=== PATIENT | female | born 1965 | race Caucasian/White ===

== ENCOUNTER 2019-01-01 16:23 | Emergency (ER) | payer BC ==
[~2019-01-01] VITALS: Ht 162.6 cm; Wt 117.9 kg
[~2019-01-01 16:23] MED LIST: AMITRIPTYLINE H10 MG PO; ATORVASTATIN CA20 MG PO; BACTRIM DS TAB1 EACH PO; CLINDAMYCIN HC300 MG PO; CLOBETASOL PROP15 G1 TOP; FARXIGA10 MG PO; HUMALOG100 UNIT/2 SUB-Q; INTRINSI B12-F1 EACH PO; KEFLEX500 MG PO; LEVOTHYROXINE200 MCG PO; LEVOTHYROXINE75 MCG PO; LISINOPRIL20 MG PO; METFORMIN HCL1000 MG PO; METOPROLOL SUCC50 MG PO; OMEPRAZOLE20 M1 PO; OXYCODONE HCL5 MG PO; TOUJEO SOL300 UNIT/1 SQ; TRAMADOL HCL50 MG PO; TRIAMCINOLONE A15 G1 TOP; ULTRAM50 MG PO; VITAMIN B-122000 MC1 PO; VITAMIN D250000 UNIT PO
--- OUTSIDE RECORDS SUMMARY | 2019-01-01 16:26 | XMS ---
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 Bharat has no Care Guidelines for this patient. Hemant VISIT COUNT (12 MO.) 1 YOLANDA Parker TOTAL 1 NOTE: Visits indicate total known visits. ED/C VISIT TRACKING (12 MO.) 01/01/2019 16:24 YOLANDA [facility] [place] TYPE: Emergency COMPLAINT: - CHEST PAIN INPATIENT VISIT TRACKING (12 MO.) No inpatient visits to display in this time frame [email or web address]
--- NOTE | 2019-01-02 17:35 | EKG ---
[facility] [address] [place], [place] [address] Signed Normal sinus rhythm Normal ECG When compared with ECG of 01-FEB-2018 15:57, No significant change was found Confirmed by MIRTA PINEDA DO ([id number]) on 01/02/2019 5:35:31 PM Electronically Signed By: MIRTA PINEDA DO 01/02/19 1735 PATIENT NAME: CATHRYN CHANCEJP SPANN Electrocardiogram DATE OF : 69 PHYSICIAN: MIRTA PINEDA DO REPORT #: [id number] REPORT IS CONFIDENTIAL AND NOT TO BE RELEASED WITHOUT AUTHORIZATION
== END 2019-01-01 19:33 | disposition home or self-care (01) ==
LOC: ED 16:23
DX: R07.2 Precordial pain (principal); I10 Essential (primary) hypertension; E11.9 Type 2 diabetes mellitus without complications; E66.9 Obesity, unspecified; Z87.891 Personal history of nicotine dependence; Z88.0 Allergy status to penicillin; Z88.8 Allergy status to other drugs, medicaments and biological substances; Z79.4 Long term (current) use of insulin; Z79.899 Other long term (current) drug therapy
CPT/HCPCS: 36415; 71045; 80053; 84484; 85025; 85379; 93005; 93010; 99285-25

== ENCOUNTER 2019-10-17 09:20 | Emergency (ER) | payer BC ==
[~2019-10-17] VITALS: Ht 162.6 cm; Wt 117.9 kg
--- OUTSIDE RECORDS SUMMARY | ~2019-10-17 | XMS | Encounter Summary ---
Demographics + + + | Address | [address] | | | [place] [address] | + + + | Home Phone | | + + + | Preferred Language | Unknown | + + + | Marital Status | | + + + | Mandaen Affiliation | Unknown | + + + | Race | Unknown | + + + | Ethnic Group | Unknown | + + + Author + + + | Author | [facility] | | | and [place] | + + + | Organization | [facility] | | | and [place] | + + + | Address | Unknown | + + + | Phone | Unavailable | + + + Support + + + + + | Name | Relationship | Address | Phone | + + + + + | Deonte Simms V | ECON | [address] | | | | | [place] | | | | | [address] | | + + + + + Care Team Providers + +------+ + | Care Polysom Tech Name | Role | Phone | + +------+ + | Nikos Crane | PCP | | | MD | | | + +------+ + Reason for Visit Auth/Cert +--------+--------+ + + + + | Status | Reason | Specialty | Diagnoses / | Referred By | Referred To | | | | | Procedures | Contact | Contact | +--------+--------+ + + + + | | | | Diagnoses | | Clara, | | | | | Abnormal | | DO Ama | | | | | stress test | | [address] | | | | | Procedures | | [address] | | | | | [place] [address] | | [place] | | | | | [place] & | | [address] Phone: | | | | | ARTS W/N[place]X | | [phone] | | | | | & ANGIO IMG | | Fax: | | | | | S&I CV LHC | | [phone] | | | | | CV COR | | | | | | | ANGIO CV LV | | | +--------+--------+ + + + + Encounter Details +--------+ + + + + | Date | Type | Department | Care Team | Description | +--------+ + + + + | 08/05/ | Hospital | [facility] | Ama Elizabeth DO | Abnormal stress | | 2019 - | Encounter | [facility] | [address] | test; Abnormal | | | | CARE [address]LO[phone] | [place], [place] | stress test | | 08/06/ | | [address] | [address] | | | 2018 | | [place], [place] | | | | | | [address] | | | | | | [phone] | | | +--------+ + + + + Social History + + + +--------+ + | Tobacco Use | Types | Packs/Day | Years | Date | | | | | Used | | + + + +--------+ + | Former Smoker | Cigarettes | 1 | 20 | Quit: 11/21/2011 | + + + +--------+ + + +---+---+---+ | Smokeless Tobacco: | | | | | Never Used | | | | + +---+---+---+ + + +---------+ + | Alcohol Use | Drinks/Week | oz/Week | Comments | + + +---------+ + | No | | | Alcoholic | | | | | Drinks/day: RARELY | + + +---------+ + + + + | Sex Assigned at | Date Recorded | | | | + + + | Not on file | | + + + + + + + | Job Start Date | Occupation | Industry | + + + + | Not on file | Not on file | Not on file | + + + + + + + + | Travel History | Travel Start | Travel End | + + + + + + | No recent travel history available. | + + documented as of this encounter Last Filed Vital Signs + + + + + | Vital Sign | Reading | Time Taken | Comments | + + + + + | Blood Pressure | 156/81 | 08/06/2019 8:00 AM | | | | | PDT | | + + + + + | Pulse | 92 | 08/06/2019 8:00 AM | | | | | PDT | | + + + + + | Temperature | 36.8 C (98.2 F) | 08/06/2019 8:00 AM | | | | | PDT | | + + + + + | Respiratory Rate | 16 | 08/06/2019 8:00 AM | | | | | PDT | | + + + + + | Oxygen Saturation | 96% | 08/06/2019 8:00 AM | | | | | PDT | | + + + + + | Inhaled Oxygen | - | - | | | Concentration | | | | + + + + + | Weight | 129.8 kg (286 lb 2.5 | 08/05/2019 7:50 AM | | | | oz) | PDT | | + + + + + | Height | 162.6 cm (5' 4") | 08/05/2019 7:50 AM | | | | | PDT | | + + + + + | Body Mass Index | 49.12 | 08/05/2019 7:50 AM | | | | | PDT | | + + + + + documented in this encounter Discharge Summaries Fermín Tyler MD - 08/06/2019 8:36 AM PDT [facility] Service: Cardiology Discharge Summary Date of Admission: 08/05/2019 Date of Discharge: 08/06/2019 Discharge Physician: Fermín Tyler MD PROCEDURES: Angioplasty for the RCA with 2 overlapping drug-eluting stents, synergy 3.0 x 38 mm and 3.5 x 38 mm. HOSPITAL COURSE: Deshawn Simms is 54 y.o. lady who was evaluated by Dr. Elizabeth for recurrent epis odes of angina. She had abnormal nuclear stress test. Heart catheterization showed two-vessel disease including LAD and the RCA. Angioplasty was done for the RCA. Patient was observed overnight without complications. She was discharged home in stable condition. DISCHARGE EXAM Vital Signs: BP 156/81 | Pulse 92 | Temp 36.8 C (98.2 F) (Oral) | Resp 16 | Ht 1.626 m (5' 4") | Wt 129.8 kg (286 lb 2.5 oz) | LMP 11/30/2012 | SpO2 96% | ? No | BMI 49.1 2 kg/m HEENT: No xanthelasmas. Extraocular movements were intact. No jaundice. NECK: no JVD, lymphadenopathy. Trachea is at midline. Thyroid is not palpable. CARDIAC: There is normal S1 and S2. Systolic murmur, 6. CHEST: Normal bilateral symmetrical chest excursion. Good bilateral air entry with no crack les or wheezing. No evidence of dullness. ABDOMEN: Soft and lax. No tenderness. No palpable organs. Active bowel sounds. EXTREMITIES: No lower extremities edema. NEURO: Alert and oriented times three with no focal deficit. Cranial nerves are grossly no rmal. SKIN: No bruises or rash. DATA: Recent Labs Lab 08/06/19 0530 NA 139 K 4.3 CO2 28 BUN 24 CALCIUM 9.6 No results for input(s): CKMB in the last 168 hours. Invalid input(s): CKTOTAL, CKMBINDEX, TROPONINI Recent Labs Lab 08/06/19 0530 WBC 10.37 HGB 11.6 HCT 35.8 MCV 89.3 PLT 440* PLAN: Aspirin 81 mg indefinitely Prasugrel 10 mg for 1 year Staged PCI for the LAD Postpone cardiac rehab till after LAD PCI Aggressive risk factors modification DISCHARGE MEDICATIONS: Discharge Medications New Medications Details prasugrel 10 mg Tabs Take 1 tablet by mouth Daily. aka: EFFIENT Changed Medications Details levothyroxine 100 mcg tablet Take 100 mcg by mouth every morning before breakfast. What changed: when to take this aka: SYNTHROID Unchanged Medications Details APIDRA SOLOSTAR 100 units/mL injection pen Generic drug: insulin glulisine Inject into the skin 3 (three) times daily before meals. aspirin 81 mg chewable tablet Take 81 mg by mouth daily with breakfast. ergocalciferol 50,000 units capsule Take 50,000 Units by mouth once a week. aka: VITAMIN D-2 FARXIGA 10 mg tablet Generic drug: dapagliflozin Take 10 mg by mouth every morning. FIBER CHOICE FRUITY BITES PO Take by mouth. metFORMIN 1000 MG tablet Take 1,000 mg by mouth 2 (two) times daily with meals. aka: GLUCOPHAGE metoprolol succinate 100 mg ER tablet Take 100 mg by mouth daily. aka: TOPROL-XL nitroglycerin 0.[address] 1 tablet under the tongue every 5 minutes as needed for Chest pain. aka: NITROSTAT TRESIBA FLEXTOUCH SC Inject into the skin. UNCODED MEDICATION E0601 CPAP RES MED S9- MIN 5 cm MAX 20cm; A7033 Nasal Pillows; A7032 Nasal Mask; A7030 Full Face Mask; E0562 Heated Humidifier; A7037 Heated Tubing; A7034 Cushions; A7036 Chinstrap; A7039 / A7038 Filters; AHI 44.1; Date of Most Recent Polysomnogram: 11/28/2013; Uncoded Medication Convert CPAP to purchase for NARESH (327.23) VITAMIN D PO Take 50,000 Units by mouth Three times a week. Discontinued Medications ibuprofen 200 mg tablet aka: EMMY HOBSON UNREVIEWED - COMPLETE MED REC AND REFRESH THIS SMARTLINK BEFORE SIGNING Details cyanocobalamin 2000 MCG Tabs Take 2,500 mcg by mouth daily. aka: VITAMIN B-12 Disposition: Home Condition: Stable Code Status: Full Code Discharge took 30 minutes, to include final examination, discussion of admission, and prepa ration of prescriptions, instructions for on-going care, follow-up and documentation of disc harge summary. Fermín Tyler MD 08/06/2019 documented in this enco unter Discharge Instructions Instructions Vinita Lebron RN - 08/06/2019Formatting of this note might be different f rom the original. Discharge: For 24 hours: Avoid excessive wrist movement. Avoid forceful movements (ie. Supporting weight when getting up from a bed or chair). Do not drive a car. For 48 hours: Do not to lift more than 1 pounds for 48 hours. Do not operate lawnmower, motorcycle, chainsaw or all-terrain vehicle. Avoid flexing at the wrist, such as hammering, playing tennis, or swinging objects. For 7 days: Do not submerge your hands in water (dishwater, bath tubs or other water sources). If bleeding or swelling should occur, apply manual pressure directly over the access site a nd report to the nearest hospital for evaluation. If bleeding persists for more than 10 darrius amanda, or there is a large amount of bleeding or spurting Call [address] immediately[address] yourself to the Emergency Department. Seek immediate medical attention if they experience loss of sensation, redness, swelling or discharge at the procedure site. For minor discomfort, the take acetaminophen as prescribed, elevate the affected arm and ap ply an ice pack for comfort and swelling. .Notify your physician if you experience any of the following: -Chest pain unusual for you. -Swelling, redness, inflammation or extreme discomfort from the puncture site. -Shortness of breath. -Persistent nausea/vomiting. -Coldness, discoloration, ongoing numbness. If you are unable to contact your physician or if your symptoms are severe, call 911 immedi ately. Other concerns: The site may be slightly bruised and sore following your procedure, there may be mild tingl ing in your hand and site for up to 3 days. Appointment: Please call today to make an appointment for your follow-up visit to your physician as he eufemia sheppard. Coronary Stents A stent is a small metal coil or mesh tube that is placed in a narrowed artery to hold it o pen, whichhelps improve blood flow to your heart. The stent also helps keep the artery fro m re-narrowing (restenosis). Some stents slowly release medicine over a period of time. This reduces the amount of scar tissue that forms inside the artery, helping toprevent resteno sis. A cadence specialists called an tube repairer does coronary angioplasty and stenting. He or she has specialized training in using the equipment and in doing the proce dure as safely as possible. During the procedure A member of your healthcare team will numb the skin at the insertion site (usually the g roin, but sometimes the wrist) with a local anesthetic. He or she will make a needle punctur e to insert the catheter. Your doctor will insert a guide wire through the catheter (a thin, flexible tube) and mo ve it to the narrow spot in your heart's artery. Your doctor tracks its movement on an angio gram, a special kind of X-ray. Your doctor will then insert a balloon-tipped catheter through the guide catheter and th read it over the guide wire. He or she will position it at the narrow part of the artery. Your doctor will deliver a stent mounted on a balloon-tipped catheter to the blockage in your artery. He or she will inflate the balloon to expand the stent. The expanded stent further compresses the plaque against the arterial wall, increasing t he blood flow to the heart muscle. After the procedure Your doctor will give you medicine to prevent blood clots from forming on the new stent. You will continue to take this medicine until the stent and artery have healed. Your health care team will tell you how long you should take this. Your doctor will give you a prescript ion before you go home. Your healthcare team will tell you how long to lie down and keep the insertion site stil l. The amount of time may depend on whether a closure device such as a stitch or collagen pl ug was used to close the opening made in your artery. The time you must be still may be shor ter if one of these devices was used. The amount of time will also depend on if there is any bleeding at the artery site. If the insertion site was in your groin, you may need to lie down with your leg still fo r several hours. A nurse will check your blood pressure and the insertion site. You may be asked to drink fluid to help flush the contrast liquid out of your system. You may stay for several hours overnight in the hospital. Have someone drive you home fr om the hospital. It s normal to find a small bruise or lump at the insertion site. This should disappea r within a few weeks. When to call your healthcare provider Call your healthcare provider right away if you have any of the following: Angina (a feeling of pain, pressure, aching, tingling, or burning in the chest, back, ne ck, throat, jaw, arms, or shoulders) Increasing pain, swelling, redness, bleeding, or drainage at the insertion site Severe pain, coldness, or a bluish color in the leg or arm that held the catheter Shortness of breath Difficulty urinating or blood in your urine Fever of100.4F (38C) or higher, or as directed by your healthcare provider Date Last Reviewed: 07/30/201619997171-4327 [employer]. [address] [place] [address], [place] [address]. All righ ts reserved. This information is not intended as a substitute for professional medical care. Always follow your healthcare professional's instructions. Eating Heart-Healthy Foods Eating has a big impact on your heart health. In fact, eating healthier can improve several of your heart risks at once. For instance, it helps you manage weight, cholesterol, and blo od pressure. Here are ideas to help you make heart-healthy changes without giving up allth e foods and flavors you love. Getting started Talk with your healthcare provider about eating plans, such as the DASH or Mediterranean diet. You may also be referred to a dietitian. Change a few things at a time. Give yourself time to get used to a few eating changes be fore adding more. Work to create a tasty, healthy eating plan that you can stick to for the rest of your l sultana. Goals for healthy eating Below are some tips to improve your eating habits: Limit saturated fats and trans fats. Saturated fats raise your levels of cholesterol, so keep these fats to a minimum. They are found in foods such as fatty meats, whole milk, theodore se, and palm and coconut oils. Avoid trans fats because they lower good cholesterol as well as raise bad cholesterol. Trans fats are most often found in processed foods. Reduce sodium (salt) intake. Eating too much salt may increase your blood pressure. Limi t your sodium intake to 2,300 milligrams (mg) per day(the amount in 1 teaspoon of salt), o r less if your healthcare provider recommends it. Dining out less often and eating fewer pro cessed foods are two great ways to decrease the amount of salt you consume. Managing calories. A calorie is a unit of energy. Your body lucas calories for fuel, but if you eat more calories than your body lucas, the extras are stored as fat. Your healthcar e provider can help you create a diet plan to manage your calories. This will likely include eating healthier foods as well as exercising regularly. To help you track your progress, ke ep a diary to record what you eat and how often you exercise. Choose the right foods Aim to make these foods dio of your diet. If you have diabetes, you may have different recommendations than what is listed here: Fruits and vegetables provide plenty of nutrients without a lot of calories. At meals, f ill half your plate with these foods. Split the other half of your plate between whole grain s and lean protein. Whole grains are high in fiber and rich in vitamins and nutrients. Good choices include whole-wheat bread, pasta, and brown rice. Lean proteins give you nutrition with less fat. Good choices include fish, skinless chic bro, and beans. Low-fat or nonfat dairy provides nutrients without a lot of fat. Try low-fat or nonfat m ilk, cheese, or yogurt. Healthy fats can be good for you in small amounts. These are unsaturated fats, such as o live oil, nuts, and fish. Try to have at least 2 servings per week of fatty fish, such as sa lmon, sardines, mackerel, rainbow trout, and albacore tuna. These contain omega-3 fatty acid s, which are good for your heart. Flaxseed is another source of a heart-healthy fat. More on heart-healthy eating Read food labels Healthy eating starts at the grocery store. Be sure to pay attention to food labels on pack aged foods. Look for products that are high in fiber and protein, and low in saturated fat, cholesterol, and sodium. Avoid products that contain trans fat. And pay close attention to s erving size. For instance, if you plan to eat two servings, double all the numbers on the la bel. Prepare food right A miller part of healthy cooking is cutting down on added fat and salt. Look on the internet f or lower-fat, lower-sodium recipes. Also, try these tips: Remove fat from meat and skin from poultry before cooking. Skim fat from the surface of soups and sauces. Broil, boil, bake, steam, grill, and microwave food without added fats. Choose ingredients that spice up your food without adding calories, fat, or sodium. Try these items: horseradish, hot sauce, lemon, mustard, nonfat salad dressings, and vinegar. Fo r salt-free herbs and spices, try basil, cilantro, cinnamon, pepper, and rupali. Date Last Reviewed: 07/30/201719997936-7561 [employer]. [address] [place] [id number]. All righ ts reserved. This information is not intended as a substitute for professional medical care. Always follow your healthcare professional's instructions. The [facility] Diet Expanded Second Edition documented in this encounter Medications at Time of Discharge + + + +---------+ + + | Medication | Sig | Dispensed | Refills | Start | End Date | | | | | | Date | | + + + +---------+ + + | cyanocobalamin | Take 2,500 mcg by | | 0 | 04/01/20 | | | (VITAMIN B-12) 2000 | mouth daily. | | | 19 | | | MCG TABS | | | | | | + + + +---------+ + + | dapagliflozin | Take 10 mg by mouth | | 0 | 04/01/20 | | | (FARXIGA) 10 mg | every morning. | | | 19 | | | tablet | | | | | | + + + +---------+ + + | ergocalciferol | Take 50,000 Units by | | 0 | 04/01/20 | | | (VITAMIN D-2) 50,000 | mouth once a week. | | | 19 | | | units capsule | | | | | | + + + +---------+ + + | Insulin Degludec | Inject into the | | 0 | 04/01/20 | | | (TRESIBA FLEXTOUCH | skin. | | | 19 | | | SC) | | | | | | + + + +---------+ + + | insulin glulisine | Inject into the | | 0 | 04/11/20 | | | (APIDRA SOLOSTAR) | skin 3 (three) times | | | 19 | | | 100 units/mL | daily before meals. | | | | | | injection pen | | | | | | + + + +---------+ + + | Inulin (FIBER | Take by mouth. | | 0 | 04/01/20 | | | CHOICE FRUITY BITES | | | | 19 | | | PO) | | | | | | + + + +---------+ + + | levothyroxine | Take 100 mcg by | | 0 | 04/01/20 | | | (SYNTHROID) 100 mcg | mouth every morning | | | 19 | | | tablet | before breakfast. | | | | | + + + +---------+ + + | metFORMIN | Take 1,000 mg by | | 0 | 04/01/20 | | | (GLUCOPHAGE) 1000 MG | mouth 2 (two) times | | | 19 | | | tablet | daily with meals. | | | | | + + + +---------+ + + | nitroglycerin | Place 1 tablet under | 25 | | 07/25/20 | | | (NITROSTAT) 0.4 mg | the tongue every 5 | tablet | | 19 | | | SL tablet | minutes as needed | | | | | | | for Chest pain. | | | | | + + + +---------+ + + | prasugrel | Take 1 tablet by | 90 | 3 | 08/06/20 | | | (EFFIENT) 10 mg TABS | mouth Daily. | tablet | | 19 | | + + + +---------+ + + | Uncoded Medication | Convert CPAP to | 1 | 0 | 02/05/20 | | | | purchase for NARESH | Device | | 14 | | | | (327.23) | | | | | + + + +---------+ + + | UNCODED MEDICATION | E0601 CPAP RES MED | 1 | 0 | 12/05/19 | | | | S9- MIN 5 cm MAX | Device | | 14 | | | | 20cm; A7033 Nasal | | | | | | | Pillows; A7032 Nasal | | | | | | | Mask; A7030 Full | | | | | | | Face Mask; E0562 | | | | | | | Heated Humidifier; | | | | | | | A7037 Heated Tubing; | | | | | | | A7034 Cushions; | | | | | | | A7036 Chinstrap; | | | | | | | A7039 / A7038 | | | | | | | Filters; AHI | | | | | | | 44.1;Date of Most | | | | | | | Recent | | | | | | | Polysomnogram: | | | | | | | 11/28/2013; | | | | | + + + +---------+ + + | aspirin 81 mg | Take 81 mg by mouth | | 0 | 04/11/20 | | | chewable tablet | daily with | | | 19 | 9 | | | breakfast. | | | | | + + + +---------+ + + | Cholecalciferol | Take 50,000 Units by | | 0 | | | | (VITAMIN D PO) | mouth Three times a | | | | 9 | | | week. | | | | | + + + +---------+ + + | metoprolol | Take 100 mg by mouth | | 0 | 04/01/20 | | | succinate | daily. | | | 19 | 9 | | (TOPROL-XL) 100 mg | | | | | | | ER tablet | | | | | | + + + +---------+ + + documented as of this encounter Progress Notes Annelise Rodriguez RN - 08/06/2019 9:26 AM PDTPatient requested prescription be sent to [facility] [place], [facility], and they advised they will send her Rx to her prefer d pharmacy. Annelise Samano RN - 08/06/2019 9:06 AM PDTDiscussed all prescription and discharge information wit h patient. TELE called to report inverted T-wave. Called and spoke w/ Dr. Elizabeth at this time regarding TELE, Dr Elizabeth says no action necessary at this time. Patient is pain-free, asymptomatic with stable vital signs. Tele notified of discharge. documented in this encounter Plan of Treatment +--------+---------+ + + + | Date | Type | Specialty | Care Team | Description | +--------+---------+ + + + | 11/06/ | Office | Vascular Surgery | Jacinto Tierney MD | | | 2019 | Visit | | [address] | | | | | | [place] [facility] | | | | | | [place] [address] | | | | | | [phone] | | | | | | | | +--------+---------+ + + + | 11/18/ | Office | Nephrology | Fermín Muse MD | | | 2019 | Visit | | [address] | | | | | | [address] [place] | | | | | | [address] | | | | | | | | +--------+---------+ + + + | 12/26/ | Office | Cardiology | Ashlyn Gallagher | | | 2019 | Visit | | [address] | | | | | | [address] | | | | | | [place] [address] | | | | | | [phone] | | | | | | | | +--------+---------+ + + + documented as of this encounter Procedures + +--------+ + + + | Procedure Name | Priori | Date/Time | Associated Diagnosis | Comments | | | ty | | | | + +--------+ + + + | POC GLUCOSE (NON | Routin | 08/06/2019 | | Results for this | | ORD) | e | 7:11 AM | | procedure are in the | | | | PDT | | results section. | + +--------+ + + + | CBC NO DIFFERENTIAL | Routin | 08/06/2019 | | Results for this | | | e | 5:30 AM | | procedure are in the | | | | PDT | | results section. | + +--------+ + + + | CK TOTAL | Routin | 08/06/2019 | | Results for this | | | e | 5:30 AM | | procedure are in the | | | | PDT | | results section. | + +--------+ + + + | BASIC METABOLIC | Routin | 08/06/2019 | | Results for this | | PANEL | e | 5:30 AM | | procedure are in the | | | | PDT | | results section. | + +--------+ + + + | POC GLUCOSE (NON | Routin | 08/05/2019 | | Results for this | | ORD) | e | 9:17 PM | | procedure are in the | | | | PDT | | results section. | + +--------+ + + + | CV STENT | Routin | 08/05/2019 | Abnormal stress | Results for this | | | e | 11:59 AM | test | procedure are in the | | | | PDT | | results section. | + +--------+ + + + | CV COR ANGIO | Routin | 08/05/2019 | Abnormal stress | Results for this | | | e | 11:59 AM | test | procedure are in the | | | | PDT | | results section. | + +--------+ + + + | ACTIVATED CLOTTING | Routin | 08/05/2019 | | Results for this | | TIME | e | 11:36 AM | | procedure are in the | | | | PDT | | results section. | + +--------+ + + + | ACTIVATED CLOTTING | Routin | 08/05/2019 | | Results for this | | TIME | e | 11:13 AM | | procedure are in the | | | | PDT | | results section. | + +--------+ + + + | PTT | STAT | 08/05/2019 | | Results for this | | | | 8:19 AM | | procedure are in the | | | | PDT | | results section. | + +--------+ + + + | PROTIME INR | STAT | 08/05/2019 | | Results for this | | | | 8:19 AM | | procedure are in the | | | | PDT | | results section. | + +--------+ + + + | CBC WITH | STAT | 08/05/2019 | | Results for this | | DIFFERENTIAL | | 8:19 AM | | procedure are in the | | | | PDT | | results section. | + +--------+ + + + | BASIC METABOLIC | STAT | 08/05/2019 | | Results for this | | PANEL | | 8:19 AM | | procedure are in the | | | | PDT | | results section. | + +--------+ + + + | POC GLUCOSE (NON | Routin | 08/05/2019 | | Results for this | | ORD) | e | 8:02 AM | | procedure are in the | | | | PDT | | results section. | + +--------+ + + + documented in this encounter Results POC Glucose (08/06/2019 7:11 AM PDT) + + + + + + | Component | Value | Ref Range | Performed | Pathologist | | | | | At | Signature | + + + + + + | Glucose, | 204 (H)Comment: Testing | 65 - 99 mg/dL | [facility] | | | POC | performed at [facility] | | LABORATORY | | | | [address];[place], [place] | | | | | | [address] | | | | + + + + + + + + | Specimen | + + | | + + + + + + + | Performing | Address | City/State/Zipcode | Phone Number | | Organization | | | | + + + + + | [facility] | [address] | [place] [address] | [phone] | + + + + + CBC no Differential (08/06/2019 5:30 AM PDT) + + + + + + | Component | Value | Ref Range | Performed | Pathologist | | | | | At | Signature | + + + + + + | WBC | 10.37 | 3.80 - 11.00 | [facility] | | | | | K/uL | LABORATORY | | + + + + + + | RBC | 4.01 | 3.70 - 5.10 | [facility] | | | | | M/uL | LABORATORY | | + + + + + + | Hemoglobin | 11.6 | 11.3 - 15.5 | [facility] | | | | | g/dL | LABORATORY | | + + + + + + | Hematocrit | 35.8 | 34.0 - 46.0 % | [facility] | | | | | | LABORATORY | | + + + + + + | MCV | 89.3 | 80.0 - 100.0 fl | [facility] | | | | | | LABORATORY | | + + + + + + | MCH | 28.9 | 27.0 - 34.0 pg | [facility] | | | | | | LABORATORY | | + + + + + + | MCHC | 32.3 | 32.0 - 35.5 | [facility] | | | | | g/dL | LABORATORY | | + + + + + + | RDW-SD | 48.6 | 37 - 53 fl | [facility] | | | | | | LABORATORY | | + + + + + + | Platelet | 440 (H) | 150 - 400 K/uL | [facility] | | | Count | | | LABORATORY | | + + + + + + | MPV | 8.2Comment: Testing | fl | [facility] | | | | performed at [facility], [address] | | LABORATORY | | | | [address], | | | | | | [place] [address] | | | | + + + + + + + + | Specimen | + + | Blood | + + + + + + + | Performing | Address | City/State/Zipcode | Phone Number | | Organization | | | | + + + + + | [facility] | [address] | [place] [address] | [phone] | + + + + + Basic Metabolic Panel (08/06/2019 5:30 AM PDT) + + + + + + | Component | Value | Ref Range | Performed | Pathologist | | | | | At | Signature | + + + + + + | Na | 139 | 135 - 145 | [facility] | | | | | mmol/L | LABORATORY | | + + + + + + | K | 4.3 | 3.5 - 4.9 | [facility] | | | | | mmol/L | LABORATORY | | + + + + + + | Cl | 106 | 99 - 109 mmol/L | [facility] | | | | | | LABORATORY | | + + + + + + | CO2 | 28 | 23 - 32 mmol/L | [facility] | | | | | | LABORATORY | | + + + + + + | Anion Gap | 9 | 5 - 20 mmol/L | [facility] | | | | | | LABORATORY | | + + + + + + | Glucose | 163 (H) | 65 - 99 mg/dL | [facility] | | | | | | LABORATORY | | + + + + + + | BUN | 24 | 8 - 25 mg/dL | [facility] | | | | | | LABORATORY | | + + + + + + | Creatinine | 1.1 (H) | 0.50 - 1.00 | [facility] | | | | | mg/dL | LABORATORY | | + + + + + + | BUN/Creatin | 22 | | [facility] | | | ine Ratio | | | LABORATORY | | + + + + + + | Calcium | 9.6 | 8.5 - 10.5 | [facility] | | | | | mg/dL | LABORATORY | | + + + + + + | Estimated | 52 (L)Comment: GFR <60: | >60 | [facility] | | | GFR | CHRONIC KIDNEY DISEASE, | mL/min/1.73m2 | LABORATORY | | | | IF FOUND OVER A 3 MONTH | | | | | | PERIOD.GFR <15: KIDNEY | | | | | | FAILURE.FOR | | | | | | AMERICANS, MULTIPLY THE | | | | | | CALCULATED GFR BY | | | | | | 1.210.This eGFR is | | | | | | calculated using the | | | | | | MDRD IDMS traceable | | | | | | equation.Testing | | | | | | performed at [facility], [address] | | | | | | [facility], | | | | | | [place] [address] | | | | + + + + + + + + | Specimen | + + | Blood | + + + + + + + | Performing | Address | City/State/Zipcode | Phone Number | | Organization | | | | + + + + + | [facility] | [address] | [place] [address] | [phone] | + + + + + CK Total (08/06/2019 5:30 AM PDT) + + + + + + | Component | Value | Ref Range | Performed | Pathologist | | | | | At | Signature | + + + + + + | CK TOTAL | 157Comment: Testing | 30 - 240 U/L | [facility] | | | | performed at [facility] | | LABORATORY | | | | [address];[place], [place] | | | | | | [address] | | | | + + + + + + + + | Specimen | + + | Blood | + + + + + + + | Performing | Address | City/State/Zipcode | Phone Number | | Organization | | | | + + + + + | [facility] | [address] | [place] [address] | [phone] | + + + + + POC Glucose (08/05/2019 9:17 PM PDT) + + + + + + | Component | Value | Ref Range | Performed | Pathologist | | | | | At | Signature | + + + + + + | Glucose, | 158 (H)Comment: Testing | 65 - 99 mg/dL | [facility] | | | POC | performed at [facility];[address] | | LABORATORY | | | | [address];[place] | | | | | | [address] | | | | + + + + + + + + | Specimen | + + | | + + + + + + + | Performing | Address | City/State/Zipcode | Phone Number | | Organization | | | | + + + + + | [facility] | [address] [facility] | [place] [address] | [phone] | + + + + + CV CARDIAC PROCEDURE (08/05/2019 11:59 AM PDT) + + | Specimen | + + | | + + + + + | Narrative | Performed At | + + + | | | | ConclusionSuccessful angioplasty for the RCA with 2 overlapping | | | drug-eluting stents, synergy 3.0 x 38 mm and synergy 3.5 x 38 mm. | | | Recommendations1. Aspirin 81 mg indefinitely2. Prasugrel 10 mg for 1 | | | year3. Postpone cardiac rehab referral until after evaluation of the | | | LAD.4. Aggressive risk factors modifications. For additional detail | | | as to the procedures performed and the equipment that was utilized, | | | please refer to the Procedure Log. | | |4. Aggressive risk factors modifications. | | | | | | | | |For additional detail as to the procedures performed and the equipment | | |that was utilized, please refer to the Procedure Log. | | | | | + + + CV CARDIAC PROCEDURE (08/05/2019 11:59 AM PDT) + + | Specimen | + + | | + + + + + | Narrative | Performed At | + + + | Summary | | | Severe two-vessel coronary artery disease involving the mid-distal RCA | | | and mid LAD. Recommendations Results discussed with the patient | | | Ongoing risk factor modification is appropriate Case discussed with | | | Dr. Tyler, plan for PCI of the RCA We will plan to bring the | | | patient back for staged PCI of the LAD Procedures Performed Coronary | | | angiography without left heart cath ([id number]) Conscious sedation | | | Procedure Summary Access site: right radial artery | | | Anticoagulation: heparin Antiplatelet therapy: aspirin 81 mg | | | Closure: Radial band/closure device Clinical IndicationsThis is a 54 | | | y.o. year old female who presented with exertional chest pain and a | | | moderate risk stress test with inferior lateral ischemia. For | | | additional detail as to the procedures performed and the equipment | | | that was utilized, please refer to the Procedure Log. | | |Procedure Summary | | | Access site: right radial artery | | | Anticoagulation: heparin | | | Antiplatelet therapy: aspirin 81 mg | | | Closure: Radial band/closure device | | | | | |Clinical Indications | | |This is a 54 y.o. year old female who presented with exertional chest pain | | |and a moderate risk stress test with inferior lateral ischemia. | | | | | |For additional detail as to the procedures performed and the equipment | | |that was utilized, please refer to the Procedure Log. | | | | | + + + Activated clotting time (08/05/2019 11:36 AM PDT) + + + + + + | Component | Value | Ref Range | Performed | Pathologist | | | | | At | Signature | + + + + + + | Activated | 191 (H)Comment: Testing | 74 - 137 | [facility] | | | Clotting | performed at [facility] | seconds | LABORATORY | | | Time, POC | [address];[place], [place] | | | | | | [address] | | | | + + + + + + + + | Specimen | + + | | + + + + + + + | Performing | Address | City/State/Zipcode | Phone Number | | Organization | | | | + + + + + | [facility] | [address] | [place] [address] | [phone] | + + + + + Activated clotting time (08/05/2019 11:13 AM PDT) + + + + + + | Component | Value | Ref Range | Performed | Pathologist | | | | | At | Signature | + + + + + + | Activated | 213 (H)Comment: Testing | 74 - 137 | [facility] | | | Clotting | performed at [facility];[address] | seconds | LABORATORY | | | Time, POC | [address];[place] | | | | | | [address] | | | | + + + + + + + + | Specimen | + + | | + + + + + + + | Performing | Address | City/State/Zipcode | Phone Number | | Organization | | | | + + + + + | [facility] | [address] | [place] [address] | [phone] | + + + + + Protime INR (08/05/2019 8:19 AM PDT) + + + + + + | Component | Value | Ref Range | Performed | Pathologist | | | | | At | Signature | + + + + + + | INR | 0.9Comment: REFERENCE | | [facility] | | | | RANGE:0.9 - 1.2 | | LABORATORY | | | | NON-ANTICOAGULATED2.0 | | | | | | - 3.0 ALL OTHER | | | | | | THERAPEUTIC | | | | | | INDICATIONS2.5 - 3.5 | | | | | | MECHANICAL HEART VALVES, | | | | | | RECURRENT OR SYSTEMIC | | | | | | EMBOLISMTesting | | | | | | performed at [facility] | | | | | | [facility];[place] | | | | | | [address] | | | | + + + + + + + + | Specimen | + + | Blood | + + + + + + + | Performing | Address | City/State/Zipcode | Phone Number | | Organization | | | | + + + + + | [facility] | [address] | [place] [address] | [phone] | + + + + + PTT (08/05/2019 8:19 AM PDT) + + + + + + | Component | Value | Ref Range | Performed | Pathologist | | | | | At | Signature | + + + + + + | PTT | 28Comment: Testing | 23 - 32 seconds | [facility] | | | | performed at [facility];[address] | | LABORATORY | | | | [address];[place] | | | | | | [address] | | | | + + + + + + + + | Specimen | + + | Blood | + + + + + + + | Performing | Address | City/State/Zipcode | Phone Number | | Organization | | | | + + + + + | [facility] | [address] | [place] [address] | [phone] | + + + + + Basic Metabolic Panel (08/05/2019 8:19 AM PDT) + + + + + + | Component | Value | Ref Range | Performed | Pathologist | | | | | At | Signature | + + + + + + | Na | 144 | 135 - 145 | [facility] | | | | | mmol/L | LABORATORY | | + + + + + + | K | 4.2 | 3.5 - 4.9 | [facility] | | | | | mmol/L | LABORATORY | | + + + + + + | Cl | 109 | 99 - 109 mmol/L | [facility] | | | | | | LABORATORY | | + + + + + + | CO2 | 26 | 23 - 32 mmol/L | [facility] | | | | | | LABORATORY | | + + + + + + | Anion Gap | 13 | 5 - 20 mmol/L | [facility] | | | | | | LABORATORY | | + + + + + + | Glucose | 71 | 65 - 99 mg/dL | [facility] | | | | | | LABORATORY | | + + + + + + | BUN | 29 (H) | 8 - 25 mg/dL | [facility] | | | | | | LABORATORY | | + + + + + + | Creatinine | 1.21 (H) | 0.50 - 1.00 | [facility] | | | | | mg/dL | LABORATORY | | + + + + + + | BUN/Creatin | 24 | | [facility] | | | ine Ratio | | | LABORATORY | | + + + + + + | Calcium | 9.7 | 8.5 - 10.5 | [facility] | | | | | mg/dL | LABORATORY | | + + + + + + | Estimated | 47 (L)Comment: GFR <60: | >60 | [facility] | | | GFR | CHRONIC KIDNEY DISEASE, | mL/min/1.73m2 | LABORATORY | | | | IF FOUND OVER A 3 MONTH | | | | | | PERIOD.GFR <15: KIDNEY | | | | | | FAILURE.FOR | | | | | | AMERICANS, MULTIPLY THE | | | | | | CALCULATED GFR BY | | | | | | 1.210.This eGFR is | | | | | | calculated using the | | | | | | MDRD IDMS traceable | | | | | | equation.Testing | | | | | | performed at [facility];[address] | | | | | | [address];[place] | | | | | | [address] | | | | + + + + + + + + | Specimen | + + | Blood | + + + + + + + | Performing | Address | City/State/Zipcode | Phone Number | | Organization | | | | + + + + + | [facility] | [address] | [place] [address] | [phone] | + + + + + CBC with Differential (08/05/2019 8:19 AM PDT) + + + + + + | Component | Value | Ref Range | Performed | Pathologist | | | | | At | Signature | + + + + + + | WBC | 9.72 | 3.80 - 11.00 | [facility] | | | | | K/uL | LABORATORY | | + + + + + + | RBC | 4.18 | 3.70 - 5.10 | [facility] | | | | | M/uL | LABORATORY | | + + + + + + | Hemoglobin | 12.3 | 11.3 - 15.5 | [facility] | | | | | g/dL | LABORATORY | | + + + + + + | Hematocrit | 37.0 | 34.0 - 46.0 % | [facility] | | | | | | LABORATORY | | + + + + + + | MCV | 88.6 | 80.0 - 100.0 fl | [facility] | | | | | | LABORATORY | | + + + + + + | MCH | 29.3 | 27.0 - 34.0 pg | [facility] | | | | | | LABORATORY | | + + + + + + | MCHC | 33.1 | 32.0 - 35.5 | [facility] | | | | | g/dL | LABORATORY | | + + + + + + | RDW-SD | 48.6 | 37 - 53 fl | [facility] | | | | | | LABORATORY | | + + + + + + | Platelet | 467 (H) | 150 - 400 K/uL | [facility] | | | Count | | | LABORATORY | | + + + + + + | MPV | 8.1 | fl | [facility] | | | | | | LABORATORY | | + + + + + + | Diff Type | AUTOMATED | | [facility] | | | | | | LABORATORY | | + + + + + + | % | 70.75 | % | [facility] | | | Neutrophils | | | LABORATORY | | + + + + + + | % | 19.58 | % | [facility] | | | Lymphocytes | | | LABORATORY | | + + + + + + | Monocyte % | 6.65 | % | [facility] | | | | | | LABORATORY | | + + + + + + | Eosinophils | 2.85 | % | [facility] | | | % | | | LABORATORY | | + + + + + + | Basophils % | 0.17 | % | [facility] | | | | | | LABORATORY | | + + + + + + | Neutrophils | 6.87 | 1.90 - 7.40 | [facility] | | | , Absolute | | K/uL | LABORATORY | | + + + + + + | Absolute | 1.90 | 1.00 - 3.90 | [facility] | | | Lymphocytes | | K/uL | LABORATORY | | + + + + + + | Absolute | 0.65 | 0.00 - 0.80 | [facility] | | | Monocytes | | K/uL | LABORATORY | | + + + + + + | Eosinophils | 0.28 | 0.00 - 0.50 | [facility] | | | , Absolute | | K/uL | LABORATORY | | + + + + + + | Basophils, | 0.02Comment: Testing | 0.00 - 0.10 | [facility] | | | Absolute | performed at [facility] | K/uL | LABORATORY | | | | [address];[place] | | | | | | [address] | | | | + + + + + + + + | Specimen | + + | Blood | + + + + + + + | Performing | Address | City/State/Zipcode | Phone Number | | Organization | | | | + + + + + | [facility] | [address] | [place] [address] | [phone] | + + + + + POC Glucose (08/05/2019 8:02 AM PDT) + + + + + + | Component | Value | Ref Range | Performed | Pathologist | | | | | At | Signature | + + + + + + | Glucose, | 71Comment: Testing | 65 - 99 mg/dL | [facility] | | | POC | performed at [facility];[address] | | LABORATORY | | | | [address];[place] | | | | | | [address] | | | | + + + + + + + + | Specimen | + + | | + + + + + + + | Performing | Address | City/State/Zipcode | Phone Number | | Organization | | | | + + + + + | [facility] | [address] | [place] [address] | [phone] | + + + + + documented in this encounter Visit Diagnoses + + | Diagnosis | + + | Abnormal stress test Other nonspecific abnormal cardiovascular system function study | + + documented in this encounter Admitting Diagnoses + + | Diagnosis | + + | Abnormal stress test Other nonspecific abnormal cardiovascular system function study | + + documented in this encounter Administered Medications + +--------+ +--------+------+------+ | Medication Order | MAR | Action | Dose | Rate | Site | | | Action | Date | | | | + +--------+ +--------+------+------+ | acetaminophen (TYLENOL) tablet | Given | 08/05/20 | 650 mg | | | | 650 mg 650 mg, Oral, EVERY 4 | | 19 11:54 | | | | | HOURS PRN, Pain, Starting Mon | | PM PDT | | | | | 08/05/19 at 1241 | | | | | | + +--------+ +--------+------+------+ +-------+ +--------+---+---+ | Given | 08/05/20 | 650 mg | | | | | 19 2:05 | | | | | | PM PDT | | | | +-------+ +--------+---+---+ +---+---+ | | | +---+---+ + +-------+ +-------+---+---+ | aspirin chewable tablet 81 mg | Given | 08/06/20 | 81 mg | | | | 81 mg, Oral, DAILY WITH | | 19 9:21 | | | | | BREAKFAST, First dose on Mon | | AM PDT | | | | | 08/05/19 at 1300 | | | | | | + +-------+ +-------+---+---+ +-------+ +-------+---+---+ | Given | 08/05/20 | 81 mg | | | | | 19 2:06 | | | | | | PM PDT | | | | +-------+ +-------+---+---+ + +---+ | | | + +---+ | dextrose 10% (D10W) infusion | | | at 50 mL/hr, Intravenous, | | | CONTINUOUS PRN, hypoglycemia, | | | Starting 08/05/19 at 1917, | | | Start infusion if unable to | | | maintain blood glucose greater | | | than 70 mg/dL after two rounds of | | | hypoglycemia treatment. Recheck | | | blood glucose 30 minutes after | | | starting D10W then at least | | | hourly and PRN until it is | | | discontinued. Call provider to | | | discuss parameters for D10W | | | discontinuation., | | + +---+ | | | + +---+ | dextrose 50% injection 12.5-25 | | | g 12.5-25 g, Intravenous, PRN, | | | Low Blood Sugar, Starting Mon | | | 08/05/19 at 1917, For blood | | | glucose 50-69 mg/dl - give 12.5 g | | | For blood glucose less than 50 | | | mg/dl - give 25 g, | | + +---+ | | | + +---+ + +-------+ +-------+---+---+ | hydrALAZINE (APRESOLINE) | Given | 08/05/20 | 10 mg | | | | injection 10 mg 10 mg, | | 19 11:28 | | | | | Intravenous, ONCE, Mon08/05/19 at | | AM PDT | | | | | 1145, For 1 dose | | | | | | + +-------+ +-------+---+---+ + +---+ | | | + +---+ | insulin lispro (humaLOG) | | | injection (vial) 0-12 Units 0-12 | | | Units, Subcutaneous, 4 TIMES | | | DAILY WITH MEALS & NIGHTLY, First | | | dose on Mon08/05/19 at 2100, | | | CORRECTION SCALE: Blood Glucose | | | (BG) < 150: None | | | BG 150-200: DAY: 2 units. | | | NIGHT: 0 units BG 201-250: DAY: | | | 4 units. NIGHT: 2 units BG | | | 251-300: DAY: 6 units. NIGHT: | | | 4 units BG 301-350: DAY: 8 | | | units. NIGHT: 6 units BG | | | 351-400: DAY: 10 units. NIGHT: 8 | | | units BG > 400 : DAY: 12 | | | units. NIGHT: 10 units | | | AND CALL PROVIDER | | | , Use DAY DOSE for doses | | | scheduled: AC, NPO, Daytime | | | 9205-3757 Use NIGHT DOSE for | | | doses scheduled: HS, 3AM, | | | Nighttime 2202-3502 If the BG is | | | not checked before the patient | | | starts eating, do not give | | | correction insulin. If HS insulin | | | given, check blood glucose at | | | 3AM. Only for use with U-100 | | | insulin syringe., | | + +---+ | | | + +---+ + +-------+ +-------+---+---+ | prasugrel (EFFIENT) tablet 10 | Given | 08/06/20 | 10 mg | | | | mg 10 mg, Oral, DAILY, First | | 19 9:22 | | | | | dose (after last reorder) on Tue | | AM PDT | | | | | 08/06/19 at 0900 | | | | | | + +-------+ +-------+---+---+ +---+---+ | | | +---+---+ + +-------+ +-------+---+---+ | prasugrel (EFFIENT) tablet 60 | Given | 08/05/20 | 60 mg | | | | mg 60 mg, Oral, ONCE, Mon | | 19 12:07 | | | | | 08/05/19 at 1200, For 1 dose | | PM PDT | | | | + +-------+ +-------+---+---+ +---+---+ | | | +---+---+ + +---------+ +--------+-------+---+ | sodium chloride 0.9% (NS) bolus | New Bag | 08/05/20 | 1,000 | 250 | | | 1,000 mL 1,000 mL, Intravenous, | | 19 12:53 | mLs | mL/hr | | | Administer over 4 Hours, ONCE, | | PM PDT | | | | | 08/05/19 at 1300, For 1 dose, | | | | | | | 1 ml/kg/hr x 6 hours, | | | | | | | Post-op/Phase II | | | | | | + +---------+ +--------+-------+---+ +---+---+ | | | +---+---+ + +---------+ +---+ +---+ | sodium chloride 0.9% (NS) | New Bag | 08/05/20 | | 30 mL/hr | | | infusion at 30 mL/hr, | | 19 8:39 | | | | | Intravenous, CONTINUOUS, Starting | | AM PDT | | | | | 08/05/19 at 0900, Pre-op | | | | | | + +---------+ +---+ +---+ +---+---+ | | | +---+---+ documented in this encounter
--- OUTSIDE RECORDS SUMMARY | ~2019-10-17 | XMS | Encounter Summary ---
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 | [facility] | | + + + + + + | P-R | 162 | ms | [facility] | | | INTERVAL | | | | | + + + + + + | QRS | 86 | ms | [facility] | | | DURATION | | | | | + + + + + + | Q-T | 380 | ms | [facility] | | | INTERVAL | | | | | + + + + + + | Q-T | 457 | ms | [facility] | | | INTERVAL | | | | | | (CORRECTED) | | | | | + + + + + + | P WAVE AXIS | 61 | degrees | [facility] | | + + + + + + | QRS AXIS | 21 | degrees | [facility] | | + + + + + + | T AXIS | 66 | degrees | [facility] | | + + + + + + | INTERPRETAT | Please refer to | | [facility] | | | ION TEXT | Providers office visit | | | | | | note for Providers | | | | | | Interpretation.Confirmed | | | | | | by [facility] Read Only, | | | | | | [facility] ([id number]), | | | | | | photography editor Tony Alexandre | | | | | | ([phone]) on 09/05/2019 | | | | | | 3:40:06 PM | | | | + + + + + + + + | Specimen | + + | | + + + + + | Narrative | Performed At | + + + | | | + + + + +---------+ + + | Performing | Address | City/State/Zipcode | Phone Number | | Organization | | | | + +---------+ + + | [facility] | | | | + +---------+ + + documented in this encounter Visit Diagnoses + + | Diagnosis | + + | 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) | + + | S/P PTCA (percutaneous transluminal coronary angioplasty) Postsurgical percutaneous | | transluminal coronary angioplasty status | + + | Dyslipidemia Other and unspecified hyperlipidemia | + + | Presence of drug-eluting stent in right coronary artery | + + | Hypertension goal BP (blood pressure) < 130/80 Unspecified essential hypertension | + + | Sleep apnea with use of continuous positive airway pressure (CPAP) | + + | Poorly controlled type 2 diabetes mellitus (HCC) Type II or unspecified type diabetes | | mellitus without mention of complication, not stated as uncontrolled | + + | Bilateral carotid artery stenosis Occlusion and stenosis of multiple and bilateral | | precerebral arteries without mention of cerebral infarction | + + | Stage 3 chronic kidney disease (HCC) | + + documented in this encounter
--- OUTSIDE RECORDS SUMMARY | ~2019-10-17 | XMS | Encounter Summary ---
Demographics + + + | Address | [address] | | | [place] [address] | + + + | Home Phone | | + + + | Preferred Language | Unknown | + + + | Marital Status | | + + + | Tenriism Affiliation | Unknown | + + + | Race | Unknown | + + + | Ethnic Group | Unknown | + + + Author + + + | Author | Located Within [facility] | | | and [place] | + + + | Organization | Located Within [facility] | | | and [place] | + + + | Address | Unknown | + + + | Phone | Unavailable | + + + Support + + + + + | Name | Relationship | Address | Phone | + + + + + | Deonte Simms V | ECON | [address] | | | | | [place] | | | | | [address] | | + + + + + Care Team Providers + +------+ + | Care Picking Table Worker Name | Role | Phone | + +------+ + | Donnie Amezquita DO | PCP | | + +------+ + Reason for Visit +--------+ + | Reason | Comments | +--------+ + | Apnea | | +--------+ + Encounter Details +--------+---------+ + + + | Date | Type | Department | Care Team | Description | +--------+---------+ + + + | 04/22/ | Office | [facility] | Haseeb Dempsey PA | NARESH on CPAP (Primary | | 2013 | Visit | SLEEP DISORDER [address] | [address] | Dx) | | | | [address] | [place], [place] | | | | | [place] [address] | [address] | | | | | [phone] | | | +--------+---------+ + + + Social History [...] +---------+ + | No | | | | + + +---------+ + + + [...] + + + | Blood Pressure | 132/78 | 04/22/2014 2:08 PM | | | | | PDT | | + + + + + | Pulse | 91 | 04/22/2014 2:08 PM | | | | | PDT | | + + + + + | Temperature | - | - | | + + + + + | Respiratory Rate | 16 | 04/22/2014 2:08 PM | | | | | PDT | | + + + + + | Oxygen Saturation | 98% | 04/22/2014 2:08 PM | | | | | PDT | | + + + + + | Inhaled Oxygen | - | - | | | Concentration | | | | + + + + + | Weight | 120.7 kg (266 lb) | 04/22/2014 2:08 PM | | | | | PDT | | + + + + + | Height | - | - | | + + + + + | Body Mass Index | 45.66 | 11/21/2013 8:50 AM | | | | | PST | | + + + + + documented in this encounter Progress Notes Bridget Benítez, Master of Arts - 04/22/2014 2:00 PM PDTFormatting of this note might be di fferent from the original. 04/22/14 1300 [place] Depression Inventory-II Depression Score 32 - Severe depression Insomnia Severity Index Insomnia Severity Index 17 [place] Sleepiness Scale Sitting and reading 3 Watching TV 3 Sitting, inactive in a public place (e.g. a theatre or a meeting) 3 As a passenger in a car for an hour without a break 2 Lying down to rest in the afternoon when circumstances permit 2 Sitting and talking to someone 2 Sitting quietly after a lunch without alcohol 3 In a car, while stopped for a few minutes in traffic 0 Total score 18 SF-36v2 Score PF 27.57 RP 42.16 BP 29.15 GH 43.4 VT 39.6 SF 29.58 RE 24.78 MH 30.3 PCS 38.52 MCS 29.8 oram, TONIO Haro - 1:31 PM PDT Subjective: Patient ID: Deshawn Simms is a 48 y.o. female. HPI last office visit was: 02/04/2014 date of home, unattended, multiparameter, sleep apnea screenin11/28/2013 AHI: 44.1 O2%: 61% with 86.0 minutes below 90% Machine type: ResMed S9 with nasal pillows obtained from: [facility] [place] pressure: 5-20 cm 95%: 10.9 cm maxium: 12.5 cm Nights using CPAP: 69/ average usage (all nights): 5:33 average usage (nights used): 6:12 AHI: 0.8 "Dawny" comes in for CPAP compliance. She continues to do well with her compliance. She f eels that she is sleeping better with her CPAP. Her main challenge has been with her nasal pillows. She likes the mask, but is opening her mouth during then night and wakes often wit h a feeling of snoring or gasping from the air coming out of her mouth. She has had a diffi cult time recently with back and knee pain. She also says she is dealing with some emotiona l situations that are making things difficult for her. I have discussed the download and results of the paperwork in detail. She declined in near ly all categories, due to pain in her back and knees and from emotional struggles, but she i mproved in Vitality and ABY. Her sleepiness was unchanged. The download shows that her sle ep apnea is well controlled, with an AHI of 0.8. It also shows that her leaks are well cont rolled. Review of Systems Objective: Physical Exam Assessment: Problem #1: OBSTRUCTIVE SLEEP APNEA (327.23) This is well controlled with CPAP. Her CPAP compliance is going well, but she is opening h er mouth during the night. Plan: She is to continue with CPAP indefinitely. She is to try using a full face mask. I have r ecommended that she touch base with her medical supplier twice per year to ensure that her e quipment is satisfactory. I will follow up again in 1 year, sooner prn. At that time we will reassess with all appro piate paperwork. Thirty minutes were spent [id number], with the majority of time spent i n counseling. Haseeb Dempsey PA-C cc: Dr. Donnie Amezquita documented in this enco unter Plan of Treatment +--------+---------+ + + + | Date | Type | Specialty | Care Team | Description | +--------+---------+ + + + | 11/06/ | Office | Vascular Surgery | Jacinto Tierney MD | | | 2019 | Visit | | [address] | | | | | | [address] | | | | | | [place] [address] | | | | | | [phone] | | | | | | | | +--------+---------+ + + + | 11/18/ | Office | Nephrology | Fermín Muse MD | | | 2019 | Visit | | [address] [facility] [address] | | | | | | [address] [place] | | | | | | [address] | | | | | | | | +--------+---------+ + + + | 12/26/ | Office | Cardiology | Ashlyn Gallagher | | | 2019 | Visit | | [address] | | | | | | [address] | | | | | | [facility] [address] | | | | | | [phone] | | | | | | | | +--------+---------+ + + + documented as of this encounter Visit Diagnoses + + | Diagnosis | + + | NARESH on CPAP - Primary Obstructive sleep apnea (adult) (pediatric) | + + documented in this encounter
--- OUTSIDE RECORDS SUMMARY | ~2019-10-17 | XMS | Encounter Summary ---
Demographics + + + | Address | [address] | | | [place] [address] | + + + | Home Phone | | + + + | Preferred Language | Unknown | + + + | Marital Status | | + + + | Mu-Ism Affiliation | Unknown | + + + | Race | Unknown | + + + | Ethnic Group | Unknown | + + + Author + + + | Author | [facility] | | | and [place] | + + + | Organization | [facility] | | | and [place] | + + + | Address | Unknown | + + + | Phone | Unavailable | + + + Support + + + + + | Name | Relationship | Address | Phone | + + + + + | Deonte Simms V | ECON | [address] | | | | | [place] | | | | | [address] | | + + + + + Care Team Providers + +------+ + | Care Senior Datastage Developer Name | Role | Phone | + +------+ + | Nikos Craen PCP | | | MD | | | + +------+ + Encounter Details +--------+ + + + + | Date | Type | Department | Care Team | Description | +--------+ + + + + | 10/16/ | Orders Only | [facility] | Fermín Muse MD | Hypertension goal BP | | 2019 | | NEPHROLOGY [place] | [address] [place] | (blood pressure) < | | | | [address] [place] | [address] [place], [place] | 130/80 (Primary Dx); | | | | [address] [place], [place] | [address] | Stage 3 chronic | | | | [address] | | kidney disease (HCC) | | | | [phone] | | | +--------+ + + + [...] + + documented as of this encounter Plan of Treatment +--------+---------+ + + + | Date | Type | Specialty | Care Team | Description | +--------+---------+ + + + | 11/06/ | Office | Vascular Surgery | Jacinto Tierney MD | | | 2019 | Visit | | [address] | | | | | | [address] | | | | | | [place] [address] | | | | | | [phone] | | | | | | | | +--------+---------+ + + + | 11/18/ | Office | Nephrology | Fermín Muse MD | | | 2019 | Visit | | [address] [place] | | | | | | [address] [place] | | | | | | [address] | | | | | | | | +--------+---------+ + + + | 12/26/ | Office | Cardiology | Ashlyn Gallagher | | | 2019 | Visit | | [address] | | | | | | [address] | | | | | | [place] [address] | | | | | | [phone] | | | | | | | | +--------+---------+ + + + + +------+--------+ + + | Name | Type | Priori | Associated Diagnoses | Order Schedule | | | | ty | | | + +------+--------+ + + | Basic Metabolic | Lab | Routin | Hypertension goal | Expected: | | Panel | | e | BP (blood pressure) | 11/11/2019, Expires: | | | | | < 130/80 Stage 3 | 10/16/2020 | | | | | chronic kidney | | | | | | disease (HCC) | | + +------+--------+ + + | Protein/Creatinine | Lab | Routin | Hypertension goal | Expected: | | Ratio, Urine | | e | BP (blood pressure) | 11/11/2019, Expires: | | | | | < 130/80 Stage 3 | 10/16/2020 | | | | | chronic kidney | | | | | | disease (HCC) | | + +------+--------+ + + | Uric Acid | Lab | Routin | Hypertension goal | Expected: | | | | e | BP (blood pressure) | 11/11/2019, Expires: | | | | | < 130/80 Stage 3 | 10/16/2020 | | | | | chronic kidney | | | | | | disease (HCC) | | + +------+--------+ + + | Urinalysis With | Lab | Routin | Hypertension goal | Expected: | | Microscopic | | e | BP (blood pressure) | 11/11/2019, Expires: | | | | | < 130/80 Stage 3 | 10/16/2020 | | | | | chronic kidney | | | | | | disease (HCC) | | + +------+--------+ + + | CBC with | Lab | Routin | Hypertension goal | Expected: | | Differential | | e | BP (blood pressure) | 11/11/2019, Expires: | | | | | < 130/80 Stage 3 | 10/16/2020 | | | | | chronic kidney | | | | | | disease (HCC) | | + +------+--------+ + + documented as of this encounter Visit Diagnoses + + | Diagnosis | + + | Hypertension goal BP (blood pressure) < 130/80 - Primary Unspecified essential | | hypertension | + + | Stage 3 chronic kidney disease (HCC) | + + documented in this encounter"
--- OUTSIDE RECORDS SUMMARY | ~2019-10-17 | XMS | Encounter Summary ---
Demographics + + + | Address | [address] | | | [place] [address] | + + + | Home Phone | | + + + | Preferred Language | Unknown | + + + | Marital Status | | + + + | Jainism Affiliation | Unknown | + + + | Race | Unknown | + + + | Ethnic Group | Unknown | + + + Author + + + | Author | [facility] | | | and [place] | + + + | Organization | [facility] | | | and [place] | + + + | Address | Unknown | + + + | Phone | Unavailable | + + + Support + + + + + | Name | Relationship | Address | Phone | + + + + + | Deonte Simms V | ECON | [address] | | | | | [place] | | | | | [address] | | + + + + + Care Team Providers + +------+ + | Care Crochet Beader Name | Role | Phone | + +------+ + | Nikos Crane PCP | | | MD | | | + +------+ + Encounter Details +--------+ + + + + | Date | Type | Department | Care Team | Description | +--------+ + + + + | 10/16/ | Orders Only | [facility] | Fermín Muse MD | Hypertension goal BP | | 2019 | | NEPHROLOGY [place] | [address] [place] | (blood pressure) < | | | | [address] [place] | [address] [place], [place] | 130/80 (Primary Dx); | | | | [address] [place], [place] | [address] | Stage 3 chronic | | | | [address] | | kidney disease (HCC) | | | | [phone] | | | +--------+ + + + [...] | | | | | [place] [address] | | | | | | [phone] | | | | | | | | +--------+---------+ + + + | 11/18/ | Office | Nephrology | Fermín Muse MD | | | 2019 | Visit | | [address] [place] | | | | | | [address] [place] | | | | | | [address] | | | | | | | | +--------+---------+ + + + | 12/26/ | Office | Cardiology | Ashlyn Gallagher | | | 2019 | Visit | | [address] | | | | | | [address] | | | | | | [place] [address] | | | | | | [phone] | | | | | | | [...]
--- OUTSIDE RECORDS SUMMARY | ~2019-10-17 | XMS | Encounter Summary ---
Demographics + + + | Address | [address] [facility] [facility] | | | [place] [address] | + + + | Home Phone | | + + + | Preferred Language | Unknown | + + + | Marital Status | | + + + | Voodoo Affiliation | Unknown | + + + | Race | Unknown | + + + | Ethnic Group | Unknown | + + + Author + + + | Author | [facility] | | | and [place] | + + + | Organization | [facility] | | | and [place] | + + + | Address | Unknown | + + + | Phone | Unavailable | + + + Support + + + + + | Name | Relationship | Address | Phone | + + + + + | Deonte Simms V | ECON | [address] [facility] | | | | | [place] | | | | | [address] | | + + + + + Care Team Providers + +------+ + | Care Sales Enablement Analyst Name | Role | Phone | + [...] | | | | Diagnoses | | Alqaisi, | | | | | Coronary | | Fermín, MD | | | | | artery | | [address] | | | | | disease | | DR | | | | | involving | | [place], [place] | | | | | nome | | [address] Phone: | | | | | coronary | | [phone] | | | | | artery of | | Fax: | | | | | nome heart | | [phone] | | | | | with angina | | | | | | | pectoris | | | | | | | [...] | | | | | | | Dyslipidemia | | | | | | | Presence | | | | | | | of | | | | | | | drug-eluting | | | | | | | stent in | | | | | | | right | | | | | | | coronary | | | | | | | artery | | | | | | | Hypertension | | | | | | | goal BP | | | | | | | (blood | | | | | | | pressure) < | | | | | | | 130/80 | | | | | | | Sleep apnea | | | | | | | with use of | | | | | | | continuous | | | | | | | positive | | | | | | | airway | | | | | | | pressure | | | | | | | (CPAP) | | | | | | | Poorly | | | | | | | controlled | | | | | | | type 2 | | | | | | | diabetes | | | | | | | mellitus | | | | | | | (HCC) | | | | | | | Bilateral | | | | | | | carotid | | | | | | | artery | | | | | | | stenosis | | | | | | | Stage 3 | | | | | | | chronic | | | | | | | kidney | | | | | | | disease | | | | | | | (HCC) | | | | | | | Procedures | | | | | | | KS R & L HRT | | | | | | | CATH DUKEX | | | | | | | HRT ART& L | | | | | | | VENTR IMG | | | +--------+--------+ + + + + Encounter Details +--------+---------+ + + + | Date | Type | Department | Care Team | Description | +--------+---------+ + + + | 09/09/ | Surgery | [facility] | Fermín Tyler MD | CV STENT | | 2019 | | CENTER CV INTRA OP | [address] | | | | | [address] | [place] [address] | | | | | [place], [place] | [phone] | | | | | [address] | | | | | | [phone] | | | +--------+---------+ + + + [...] + + + | Blood Pressure | 170/68 | 09/09/2019 4:15 PM | | | | | PST | | + + + + + | Pulse | 94 | 09/09/2019 4:15 PM | | | | | PST | | + + + + + | Temperature | 36.7 C (98.1 F) | 09/09/2019 3:00 PM | | | | | PST | | + + + + + | Respiratory Rate | 18 | 09/09/2019 3:00 PM | | | | | PST | | + + + + + | Oxygen Saturation | 97% | 09/09/2019 3:00 PM | | | | | PST | | + + + + + | Inhaled Oxygen | - | - | | | Concentration | | | | + + + + + | Weight | 130.4 kg (287 lb 7.7 | 09/09/2019 9:39 AM | | | | oz) | PST | | + + + + + | Height | 162.6 cm (5' 4") | 09/09/2019 9:39 AM | | | | | PST | | + + + + + | Body Mass Index | 49.35 | 09/09/2019 9:39 AM | | | | | PST | | + + + + + documented in this encounter Discharge Instructions Instructions Lianne Melissa RN - 09/09/2019TR BAND Discharge Instructions You have had a procedure where the radial artery was used as access. Subsequently you had a TR band applied to stop bleeding. For 24 hours: Avoid excessive (extension/flexion) wrist movement Do not subject the hand to any forceful movements (i.e. supporting weight when rising fr om a chair or bed) Do not drive a car For 48 hours: Avoid heavy lifting (anything greater than 1 pounds) with the affected arm for 2 days fo llowing discharge (consider your purse) Do not operate a lawnmower, motorcycle, chainsaw or all-terrain vehicle Avoid excessive (extension/flexion)wrist movements Do not engage in vigorous exercise (tennis or golf) using the affected arm For 7 days Do not immerse your arm in water (dishwashing, hot tub, bath tub) If bleeding occurs following discharge: Sit down and apply firm pressure to the site with your fingers for 10 minutes. If the bleed ing stops, continue to sit quietly, keeping your wrist straight for 2 hours. Gently wipe the area clean and cover with a bandage Notify your physician as soon as possible If the bleeding does not stop after 10 minutes, there is a large amount of bleeding or spur ting, call 911 immediately. DO NOT DRIVE yourself to the hospital emergency room. Other Concerns: The site may be slightly bruised and sore following your procedure. There may be mild tingl ing of your hand and tenderness at the site for up to 3 days. If this persists or any of the following occur, contact your physician immediately Redness/inflammation, swelling, chills or fever or colored drainage at the procedure sit e within 3 V 7 days after your procedure Coldness, discoloration, ongoing numbness, severe pain or swelling Follow all other instructions given to you by your physician. documented in this encounter Medications at Time [...] + + + +---------+ + + | isosorbide | Take 1 tablet by | 30 | 11 | 09/05/20 | | | mononitrate (IMDUR) | mouth nightly. | tablet | | 19 | 0 | | 30 mg ER tablet | | | | | [...] + + + +---------+ + + | traMADol (ULTRAM) | Take 100 mg by mouth | | 0 | | | | 50 mg tablet | 2 times daily. | | | | | + + [...] + + + +---------+ + + | atorvaSTATin | Take 1 tablet by | 30 | 11 | 09/05/20 | | | (LIPITOR) 40 mg | mouth nightly. | tablet | | 19 | 9 | | tablet | | | | [...] | | | | | [place] [address] | | | | | | [phone] | | | | | | | | +--------+---------+ + + + | 11/18/ | Office | Nephrology | Fermín Muse MD | | | 2019 | Visit | | [address] [facility] [facility] [address] | | | | | | [address] [place] | | | | | | [address] | | | | | | | | +--------+---------+ + + + | 12/26/ | Office | Cardiology | Ashlyn Gallagher | | | 2020 | Visit | | [address] | | | | | | [address] | | | | | | [place] [address] | | | | | | [phone] | | | | | | | | +--------+---------+ + + + + + +--------+ + + | Name | Type | Priori | Associated Diagnoses | Order Schedule | | | | ty | | | + + +--------+ + + | Ambulatory Referral | Outpatient | Routin | S/P drug eluting | Ordered: 09/09/2019 | | to [facility] | Referral | e | coronary stent | | | Rehab | | | placement | | + + +--------+ + + documented as of this encounter Procedures + +--------+ + + + | Procedure Name | Priori | Date/Time | Associated Diagnosis | Comments | | | ty | | | | + +--------+ + + + | CV CARDIAC PROCEDURE | Routin | 09/09/2019 | Coronary artery | Results for this | | | e | 11:44 AM | disease involving | procedure are in the | | | | PST | nome coronary | results section. | | | | | artery of nome | | | | | | heart [...] | | | artery stenosis | | | | | | Stage 3 chronic | | | | | | kidney disease ([facility]) | | + +--------+ + + + | CV CARDIAC PROCEDURE | Routin | 09/09/2019 | Coronary artery | Results for this | | | e | 11:44 AM | disease involving | procedure are in the | | | | PST | nome coronary | results section. | | | | | artery of nome | | | | | | heart with angina | | | | | | pectoris (HCC) S/P | | | | | [...] | | | artery stenosis | | | | | | Stage 3 chronic | | | | | | kidney disease (HCC) | | + +--------+ + + + | ACTIVATED CLOTTING | Routin | 09/09/2019 | | Results for this | | TIME | e | 11:30 AM | | procedure are in the | | | | PST | | results section. | + +--------+ + + + | ACTIVATED CLOTTING | Routin | 09/09/2019 | | Results for this | | TIME | e | 11:18 AM | | procedure are in the | | | | PST | | results section. | + +--------+ + + + | CBC NO DIFFERENTIAL | STAT | 09/09/2019 | | Results for this | | | | 9:48 AM | | procedure are in the | | | | PST | | results section. | + +--------+ + + + | BASIC METABOLIC | STAT | 09/09/2019 | | Results for this | | PANEL | | 9:48 AM | | procedure are in the | | | | PST | | results section. | + +--------+ + + + | POC GLUCOSE (NON | Routin | 09/09/2019 | | Results for this | | ORD) | e | 9:42 AM | | procedure are in the | | | | PST | | results section. | + +--------+ + + + documented in this encounter Results CV CARDIAC PROCEDURE (09/09/2019 11:44 AM PST) + + | Specimen | + + | | + + + + --+ | Narrative | Performed A t | + + --+ | Summary | | | Successful staged angioplasty for the LAD with 2 non-overlapping | | | drug-eluting stents, resolute Christian 2.0 x 22 mm in the distal LAD and | | | synergy 2.5 x 16 mm in the mid LAD. Patent RCA stents. | | | Recommendations Suitable for same day discharge if clinically | | | stable Anticipated duration of dual antiplatelet therapy is 12 | | | months Ongoing risk factor modification is appropriate Procedures | | | Performed PCI of left anterior descending coronary artery with stent | | | (36065 LD) Conscious sedation (physician supervision) for 30 total | | | minutes - (11197) + 0 ([id number]) Procedure Summary Access site: right | | | radial artery Anticoagulation: heparin Antiplatelet therapy: | | | Patient has been on long-term dual antiplatelet therapy, aspirin and | | | Prasugrel. Closure: Radial band/closure device Clinical | | | IndicationsMelia is a 54 y.o. year old female lady with known history | | | of hypertension, hypercholesterolemia, diabetes, on insulin, family | | | history of premature coronary artery disease, evaluated for unstable | | | angina, found to have to visit disease. Underwent angioplasty for | | | the RCA on August 05, 2019. She continues to have chest pain. She | | | was referred for staged PCI for the LAD. For additional detail as to | | | the procedures performed and the equipment that was utilized, please | | | refer to the Procedure Log. | | | Closure: Radial band/closure device | | | | | |Clinical Indications | | |This is a 54 y.o. year old female lady with known history of hypertension, | | |hypercholesterolemia, diabetes, on insulin, family history of premature | | |coronary artery disease, evaluated for unstable angina, found to have to | | |visit disease. Underwent angioplasty for the RCA on August 05, 2019. She | | |continues to have chest pain. She was referred for staged PCI for the | | |LAD. | | | | | | | | |For additional detail as to the procedures performed and the equipment | | |that was utilized, please refer to the Procedure Log. | | | | | + + --+ Activated clotting time (09/09/2019 11:30 AM PST) + + + + + + | Component | Value | Ref Range | Performed | Pathologist | | | | | At | Signature | + + + + + + | Activated | 213 (H)Comment: Testing | 74 - 137 | [facility] | | | Clotting | performed at [facility];[address] | seconds | LABORATORY | | | Time, POC | [address];[place], [place] | | | | | | [address] | | | | + + + + + + + + | Specimen | + + | | + + + + + + + | Performing | Address | City/State/Zipcode | Phone Number | | Organization | | | | + + + + + | [facility] | [address] | [place] [address] | [phone] | + + + + + Activated clotting time (09/09/2019 11:18 AM PST) + + + + + + | Component | Value | Ref Range | Performed | Pathologist | | | | | At | Signature | + + + + + + | Activated | 191 (H)Comment: Testing | 74 - 137 | [facility] | | | Clotting | performed at [facility];888 | seconds | LABORATORY | | | Time, POC | [address];[place], [place] | | | | | | [address] | | | | + + + + + + + + | Specimen | + + | | + + + + + + + | Performing | Address | City/State/Zipcode | Phone Number | | Organization | | | | + + + + + | [facility] | [address] | [place] [address] | [phone] | + + + + + Basic Metabolic Panel (09/09/2019 9:48 AM PST) + + + + + + [...] + + + + | CO2 | 27 | 23 - 32 mmol/L | [facility] | | | | | | LABORATORY | | + + + + + + | Anion Gap | 12 | 5 - 20 mmol/L | [facility] | | | | | | LABORATORY | | + + + + + + | Glucose | 73 | 65 - 99 mg/dL | [facility] | | | | | | LABORATORY | | + + + + + + | BUN | 29 (H) | 8 - 25 mg/dL | [facility] | | | | | | LABORATORY | | + + + + + + | Creatinine | 1.05 (H) | 0.50 - 1.00 | [facility] | | | | | mg/dL | LABORATORY | | + + + + + + | BUN/Creatin | 28 | | [facility] | | | ine Ratio | | | LABORATORY | | + + + + + + | Calcium | 9.8 | 8.5 - 10.5 | [facility] | | | | | mg/dL | LABORATORY | | + + + + + + | Estimated | 55 (L)Comment: GFR <60: | >60 | [facility] | | | GFR | CHRONIC KIDNEY [...] | | | | | | MDRD [facility] traceable | | | | | | equation.Testing | | | | | | performed at [facility];[address] | | | | | | [facility];[place], [place] | | | | | | [address] | | | | + + + + + + + + | Specimen | + + | Blood | + + + + + + + | Performing | Address | City/State/Zipcode | Phone Number | | Organization | | | | + + + + + | [facility] | [address] | [place] [address] | [phone] | + + + + + CBC no Differential (09/09/2019 9:48 AM PST) + + + + + + | Component | Value | Ref Range | Performed | Pathologist | | | | | At | Signature | + + + + + + | WBC | 8.43 | 3.80 - 11.00 | [facility] | | | | | K/uL | LABORATORY | | + + + + + + | RBC | 3.83 | 3.70 - 5.10 | [facility] | | | | | M/uL | LABORATORY | | + + + + + + | Hemoglobin | 11.2 (L) | 11.3 - 15.5 | [facility] | | | | | g/dL | LABORATORY | | + + + + + + | Hematocrit | 33.7 (L) | 34.0 - 46.0 % | [facility] | | | | | | LABORATORY | | + + + + + + | MCV | 88.1 | 80.0 - 100.0 fl | [facility] | | | | | | LABORATORY | | + + + + + + | MCH | 29.2 | 27.0 - 34.0 pg | [facility] | | | | | | LABORATORY | | + + + + + + | MCHC | 33.1 | 32.0 - 35.5 | [facility] | | | | | g/dL | LABORATORY | | + + + + + + | RDW-SD | 49.9 | 37 - 53 fl | [facility] | | | | | | LABORATORY | | + + + + + + | Platelet | 430 (H) | 150 - 400 K/uL | [facility] | | | Count | | | LABORATORY | | + + + + + + | MPV | 8.2Comment: Testing | fl | [facility] | | | | performed at [facility] | | LABORATORY | | | | [address];[place], [place] | | | | | | [address] | | | | + + + + + + + + | Specimen | + + | Blood | + + + + + + + | Performing | Address | City/State/Zipcode | Phone Number | | Organization | | | | + + + + + | [facility] | [address] | [place] [address] | [phone] | + + + + + POC Glucose (09/09/2019 9:42 AM PST) + + + + + + | Component | Value | Ref Range | Performed | Pathologist | | | | | At | Signature | + + + + + + | Glucose, | 68Comment: Testing | 65 - 99 mg/dL | [facility] | | | POC | performed at [facility];[address] | | LABORATORY | | | | [address];[place], [place] | | | | | | [address] | | | | + + + + + + + + | Specimen | + + | | + + + + + + + | Performing | Address | City/State/Zipcode | Phone Number | | Organization | | | | + + + + + | [facility] | [address] | [place] [address] | [phone] | + + + + + documented in this encounter Visit Diagnoses + + | Diagnosis | + + | 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) [...] + + | 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) [...] | | | + +--------+ +--------+------+------+ | fentaNYL (PF) injection ONCE | Given | 09/09/20 | 50 mcg | | | | PRN, Starting 09/09/19 at | | 19 11:10 | | | | | 1110, Intra-op | | AM PST | | | | + +--------+ +--------+------+------+ +---+---+ | | | +---+---+ + +-------+ +--------+---+---+ | heparin 1,000 units/mL | Given | 09/09/20 | 2,000 | | | | injection ONCE PRN, Starting Mon | | 19 11:21 | Units | | | | 09/09/19 at 1111, Intra-op | | AM PST | | | | + +-------+ +--------+---+---+ +-------+ +--------+---+---+ | Given | 09/09/20 | 5,000 | | | | | 19 11:11 | Units | | | | | AM PST | | | | +-------+ +--------+---+---+ +---+---+ | | | +---+---+ + +-------+ +--------+---+---+ | iohexol (OMNIPAQUE 300) 300 | Given | 09/09/20 | 60 mLs | | | | mg/mL injection ONCE PRN, | | 19 11:35 | | | | | Starting Mon09/09/19 at 1135, | | AM PST | | | | | Intra-op | | | | | | + +-------+ +--------+---+---+ +---+---+ | | | +---+---+ + +-------+ +-------+---+---+ | lidocaine 1% injection ONCE | Given | 09/09/20 | 5 mLs | | | | PRN, Starting Mon09/09/19 at | | 19 11:09 | | | | | 1108, Intra-op | | AM PST | | | | + +-------+ +-------+---+---+ +---+---+ | | | +---+---+ + +-------+ +------+---+---+ | midazolam (VERSED) 1 mg/mL | Given | 09/09/20 | 1 mg | | | | injection ONCE PRN, Starting Mon | | 19 11:10 | | | | | 09/09/19 at 1110, Intra-op | | AM PST | | | | + +-------+ +------+---+---+ +---+---+ | | | +---+---+ + +-------+ +---------+---+---+ | nitroglycerin injection ONCE | Given | 09/09/20 | 200 mcg | | | | PRN, Starting 09/09/19 at | | 19 11:28 | | | | | 1112, Intra-op | | AM PST | | | | + +-------+ +---------+---+---+ +-------+ +---------+---+---+ | Given | 09/09/20 | 200 mcg | | | | | 19 11:12 | | | | | | AM PST | | | | +-------+ +---------+---+---+ +---+---+ | | | +---+---+ + +-------+ +-------+---+---+ | prasugrel (EFFIENT) tablet | Given | 09/09/20 | 10 mg | | | | ONCE PRN, Starting 09/09/19 | | 19 11:39 | | | | | at 1139, Intra-op | | AM PST | | | | + +-------+ +-------+---+---+ +---+---+ | | | +---+---+ + +---------+ +--------+-------+---+ | sodium chloride 0.9% (NS) bolus | New Bag | 09/09/20 | 1,000 | 130 | | | 1,000 mL 1,000 mL, Intravenous, | | 19 1:30 | mLs | mL/hr | | | Administer over 6 Hours, ONCE, | | PM PST | | | | | 09/09/19 at 1300, For 1 dose, | | | | | | | 1 ml/kg/hr x 6 hours, | | | | | | | Post-op/Phase II | | | | | | + +---------+ +--------+-------+---+ + +---+ | | | + +---+ | sodium chloride 0.9% (NS) | | | infusion at 100 mL/hr, | | | Intravenous, CONTINUOUS, Starting | | | Mon09/09/19 at 1000 | | + +---+ | | | + +---+ + +-------+ +--------+---+---+ | verapamil injection ONCE PRN, | Given | 09/09/20 | 2.5 mg | | | | Starting Mon09/09/19 at 1111, | | 19 11:11 | | | | | Intra-op | | AM PST | | | | + +-------+ +--------+---+---+ +---+---+ | | | +---+---+ documented in this encounter
--- OUTSIDE RECORDS SUMMARY | ~2019-10-17 | XMS | Encounter Summary ---
Demographics + + + | Address | [address] | | | [place] [address] | + + + | Home Phone | | + + + | Preferred Language | Unknown | + + + | Marital Status | | + + + | Jainism Affiliation | Unknown | + + + | Race | Unknown | + + + | Ethnic Group | Unknown | + + + Author + + + | Author | [facility] | | | and [place] | + + + | Organization | [facility] | | | and [place] | + + + | Address | Unknown | + + + | Phone | Unavailable | + + + Support + + + + + | Name | Relationship | Address | Phone | + + + + + | Deonte Simms V | ECON | [address] | | | | | [place] | | | | | [address] | | + + + + + Care Team Providers + +------+ + | Care [employer] Officer Name | Role | Phone | + +------+ + | Donnie Amezquita DO | PCP | | + +------+ + Reason for Visit +--------+ + | Reason | Comments | +--------+ + | Apnea | | +--------+ + Encounter Details +--------+---------+ + + + | Date | Type | Department | Care Team | Description | +--------+---------+ + + + | 02/04/ | Office | [facility] | Haseeb Dempsey PA | NARESH on CPAP (Primary | | 2013 | Visit | SLEEP DISORDER [address] | [address] | Dx) | | | | [address] | [place], [place] | | | | | [place] [address] | [address] | | | | | [phone] | | | +--------+---------+ + + + [...] + + + | Blood Pressure | 124/68 | 02/04/2014 10:36 AM | | | | | PDT | | + + + + + | Pulse | 86 | 02/04/2014 10:36 AM | | | | | PDT | | + + + + + | Temperature | - | - | | + + + + + | Respiratory Rate | 16 | 02/04/2014 10:36 AM | | | | | PDT | | + + + + + | Oxygen Saturation | 97% | 02/04/2014 10:36 AM | | | | | PDT | | + + + + + | Inhaled Oxygen | - | - | | | Concentration | | | | + + + + + | Weight | 120.6 kg (265 lb | 02/04/2014 10:36 AM | | | | 14.4 oz) | PDT | | + + + + + | Height | - | - | | + + + + + | Body Mass Index | 45.64 | 11/21/2013 8:50 AM | | | | | PST | | + + + + + documented in this encounter Progress Notes Haseeb Dempsey PA - 02/04/2014 10:31 AM PDT Subjective: Patient ID: Deshawn Simms is a 48 y.o. female. HPI last office visit was: 12/31/2013 date of home, unattended, multiparameter, sleep apnea screenin11/28/2013 AHI: 44.1 O2%: 61% with 86.0 minutes below 90% Machine type: ResMed S9 with nasal pillows obtained from: [facility] [place] pressure: 5-20 cm 95%: 11.2 cm maxium: 13.4 cm Nights using CPAP: 30 average usage (all nights): 6:12 average usage (nights used): 6:12 AHI: 0.7 "Halina" comes in for CPAP compliance. She has improved her compliance considerably during the last month. She has been wearing it any time she is asleep, even during a few naps. Sh jaison is feeling much better. She is falling asleep quicker, staying asleep longer and when she does wake during the night she is able to get back to sleep easier. She has felt more rest ed with more energy during the day. Prior to CPAP, she would start planning her naps for day as soon as she woke in the morning. This is no longer a problem for her and on most d ays she is not able to sleep, even when she lays down to attempt a nap. She is very excited about her progress. I have discussed the download in detail. This shows that her sleep apnea is well controlle d, with an AHI of 0.7. It also shows that her leaks are well controlled. It shows that she is wearing her CPAP >4 hours for 100% of the nights during the last 30 nights. Review of Systems Objective: Physical Exam Assessment: Problem #1: OBSTRUCTIVE SLEEP APNEA (327.23) This is well controlled with CPAP. Her CPAP compliance is going well. She is wearing her CPAP >4 hours for 100% of the nights during the last 30 nights. Plan: She is to continue with CPAP indefinitely. We have faxed a prescription to [facility] in [place] to convert her ResMed S9 to purchase and for a nocturnal pulse oxymetry study with CPAP on room air for one night. I will follow up again in 2 months, sooner prn. At that time we will reassess with all raphael ropiate paperwork. Twenty-five minutes were spent [id number], with the majority of time spent in counseling. Haseeb Dempsey PA-C cc: Dr. Donnie Amezquita document ed in this encounter Plan of Treatment +--------+---------+ [...] | | | | | [place] [address] | | | | | | [phone] | | | | | | | | +--------+---------+ + + + | 11/18/ | Office | Nephrology | Fermín Muse MD | | | 2019 | Visit | | [address] | | | | | | [address] [place] | | | | | | [address] | | | | | | | | +--------+---------+ + + + | 12/26/ | Office | Cardiology | Ashlyn Gallagher | | | 2019 | Visit | | [address] | | | | | | [address] | | | | | | [place] [address] | | | | | | [phone] | | | | | | | | +--------+---------+ + + + documented as of this encounter Visit Diagnoses + + | Diagnosis | + + | NARESH on CPAP - Primary Obstructive sleep apnea (adult) (pediatric) | + + documented in this encounter
--- OUTSIDE RECORDS SUMMARY | ~2019-10-17 | XMS | Encounter Summary ---
Demographics + + + | Address | [address] | | | [place] [address] | + + + | Home Phone | | + + + | Preferred Language | Unknown | + + + | Marital Status | | + + + | Alevism Affiliation | Unknown | + + + | Race | Unknown | + + + | Ethnic Group | Unknown | + + + Author + + + | Author | [facility] | | | and [place] | + + + | Organization | [facility] | | | and [place] | + + + | Address | Unknown | + + + | Phone | Unavailable | + + + Support + + + + + | Name | Relationship | Address | Phone | + + + + + | Deonte Simms V | ECON | [address] | | | | | [place] | | | | | [address] | | + + + + + Care Team Providers + +------+ + | Care Tube Handler Name | Role | Phone | + +------+ + | Donnie Amezquita DO | PCP | | + +------+ + Encounter Details +--------+ + + + + | Date | Type | Department | Care Team | Description | +--------+ + + + + | 11/21/ | Hospital | [facility] | Hany Fiore | Snoring; Restless | | 2014 | Encounter | [facility] | MD John [address] | legs syndrome (RLS); | | | | [address] [place] | [address] [place] | Obesity; HBP (high | | | | [place], [place] | [place] [address] | blood pressure); | | | | [address] | [phone] | Diabetes type 2, | | | | [phone] | | uncontrolled (HCC); | | | | | | Hypothyroidism | +--------+ + + + + Social [...] + + documented as of this encounter Medications at Time of Discharge + + + +---------+ + + | Medication | Sig | Dispensed | Refills | Start | End Date | | | | | | Date | | + + + +---------+ + + | albuterol | Inhale 2 puffs into | | 0 | | | | (VENTOLIN HFA) 90 | the lungs every 6 | | | | 9 | | mcg/puff inhaler | hours as needed. | | | | | + + + +---------+ + + | Cholecalciferol | Take 50,000 Units by | | 0 | | | | (VITAMIN D PO) | mouth Three times a | | | | 9 | | | week. | | | | | + + + +---------+ + + | ergocalciferol | | | 0 | 10/03/20 | | | (VITAMIN D-2) 50,000 | | | | 13 | 9 | | units capsule | | | | | | + + + +---------+ + + | Fe-Succ Ac-C-Thre | | | 0 | 08/21/20 | | | Ac-B12-FA (FERREX | | | | 13 | 9 | | 150 FORTE PLUS) | | | | | | | 50-100 MG CAPS | | | | | | + + + +---------+ + + | Insulin Glargine | Inject 100 Units | | 0 | | | | (LANTUS SC) | under the skin | | | | 9 | | | Daily. 20 units in | | | | | | | the morning, 80 | | | | | | | units in the evening | | | | | | | before bed. | | | | | + + + +---------+ + + | iron | Take 150 mg by mouth | | 0 | | | | polysaccharides | Daily. | | | | 9 | | (FERREX 150) 150 MG | | | | | | | capsule | | | | | | + + + +---------+ + + | LEVOTHYROXINE | Take 275 mcg by | | 0 | | | | SODIUM | mouth Daily. | | | | 9 | + + + +---------+ + + | lisinopril | Take 20 mg by mouth | | 0 | | | | (PRINIVIL, ZESTRIL) | Daily. | | | | 9 | | 20 mg tablet | | | | | | + + + +---------+ + + | METFORMIN HCL PO | Take 2,000 mg by | | 0 | | | | | mouth Daily. | | | | 9 | + + + +---------+ + + | METOPROLOL | Take 50 mg by mouth | | 0 | | | | SUCCINATE ER PO | Daily. | | | | 9 | + + + +---------+ + + | traMADol (ULTRAM) | Take 50 mg by mouth | | 0 | | | | 50 mg tablet | every 6 hours as | | | | 9 | | | needed. | | | | | + + + +---------+ + + | vitamin B-12 | Take 2,000 mcg by | | 0 | | | | (CYANOCOBALAMIN) | mouth Daily. | | | | 9 | | 1000 MCG tablet | | | | | | + + + +---------+ + + documented as of this encounter Plan of Treatment +--------+---------+ + + + | Date | Type | Specialty | Care Team | Description | +--------+---------+ + + + | 11/06/ | Office | Vascular Surgery | Jacinto Tierney MD | | | 2020 | Visit | | [address] | | | | | | [place] [address] [facility] | | | | | | [place] [address] | | | | | | [phone] | | | | | | | | +--------+---------+ + + + | 11/18/ | Office | Nephrology | Fermín Muse MD | | | 2019 | Visit | | [address] | | | | | | [address] [place] | | | | | | [address] | | | | | | | | +--------+---------+ + + + | 12/26/ | Office | Cardiology | ElliottAshlyn | | | 2019 | Visit | | [address] | | | | | | [address] | | | | | | [place] [address] | | | | | | [phone] | | | | | | | | +--------+---------+ + + + documented as of this encounter Procedures + +--------+ + + + | Procedure Name | Priori | Date/Time | Associated Diagnosis | Comments | | | ty | | | | + +--------+ + + + | IRON PROFILE, | Routin | 11/21/2013 | Snoring Restless | Results for this | | (FE+IBC+FERR+%SAT) | e | 10:57 AM | legs syndrome (RLS) | procedure are in the | | | | PST | Obesity HBP (high | results section. | | | | | blood pressure) | | | | | | Diabetes type 2, | | | | | | uncontrolled (HCC) | | | | | | Hypothyroidism | | + +--------+ + + + | VITAMIN B-12 | Routin | 11/21/2013 | Snoring Restless | Results for this | | | e | 10:57 AM | legs syndrome (RLS) | procedure are in the | | | | PST | Obesity HBP (high | results section. | | | | | blood pressure) | | | | | | Diabetes type 2, | | | | | | uncontrolled (HCC) | | | | | | Hypothyroidism | | + +--------+ + + + | CBC WITH | Routin | 11/21/2013 | Snoring Restless | Results for this | | DIFFERENTIAL | e | 10:57 AM | legs syndrome (RLS) | procedure are in the | | | | PST | Obesity HBP (high | results section. | | | | | blood pressure) | | | | | | Diabetes type 2, | | | | | | uncontrolled (HCC) | | | | | | Hypothyroidism | | + +--------+ + + + | HEMOGLOBIN A1C | Routin | 11/21/2013 | Snoring Restless | Results for this | | | e | 10:57 AM | legs syndrome (RLS) | procedure are in the | | | | PST | Obesity HBP (high | results section. | | | | | blood pressure) | | | | | | Diabetes type 2, | | | | | | uncontrolled (HCC) | | | | | | Hypothyroidism | | + +--------+ + + + | GLUCOSE, FASTING | Routin | 11/21/2013 | Snoring Restless | Results for this | | | e | 10:57 AM | legs syndrome (RLS) | procedure are in the | | | | PST | Obesity HBP (high | results section. | | | | | blood pressure) | | | | | | Diabetes type 2, | | | | | | uncontrolled (HCC) | | | | | | Hypothyroidism | | + +--------+ + + + | FOLATE | Routin | 11/21/2013 | Snoring Restless | Results for this | | | e | 10:57 AM | legs syndrome (RLS) | procedure are in the | | | | PST | Obesity HBP (high | results section. | | | | | blood pressure) | | | | | | Diabetes type 2, | | | | | | uncontrolled (HCC) | | | | | | Hypothyroidism | | + +--------+ + + + | HEPATIC FUNCTION | Routin | 11/21/2013 | Snoring Restless | Results for this | | PANEL | e | 10:57 AM | legs syndrome (RLS) | procedure are in the | | | | PST | Obesity HBP (high | results section. | | | | | blood pressure) | | | | | | Diabetes type 2, | | | | | | uncontrolled (HCC) | | | | | | Hypothyroidism | | + +--------+ + + + | RENAL FUNCTION PANEL | Routin | 11/21/2013 | Snoring Restless | Results for this | | | e | 10:57 AM | legs syndrome (RLS) | procedure are in the | | | | PST | Obesity HBP (high | results section. | | | | | blood pressure) | | | | | | Diabetes type 2, | | | | | | uncontrolled (HCC) | | | | | | Hypothyroidism | | + +--------+ + + + documented in this encounter Results Hemoglobin A1C (11/21/2013 10:57 AM PST) + + + + + + | Component | Value | Ref Range | Performed | Pathologist | | | | | At | Signature | + + + + + + | Hemoglobin | 11.6 (H)Comment: | 4.3 - 5.8 % | [facility] | | | A1c | DIABETIC PATIENT RANGES: | | [facility] | | | | 6.2-7.0% = Well | | MEDICAL | | | | Controlled | | CENTER - | | | | | | LABORATORY | | | | 7.0-9.0% = | | | | | | Intermediate | | | | | | | | | | | | >9.0% = | | | | | | Poorly Controlled | | | | + + + + + + + + | Specimen | + + | Blood specimen | | (specimen) | + + + + + + + | Performing | Address | City/State/Zipcode | Phone Number | | Organization | | | | + + + + + | [facility] | [address] | [place] | [phone] | | [facility] | | [address] | | | - LABORATORY | | | | + + + + + | [facility] | [address] | [place] | | | [facility] | | [address] | | | - LABORATORY | | | | + + + + + Folate (11/21/2013 10:57 AM PST) + + + + + + | Component | Value | Ref Range | Performed | Pathologist | | | | | At | Signature | + + + + + + | FOLATE | 12.7Comment: Testing | 5.9 to >24.8 | [facility] | | | | performed on the [facility] | ng/mL | [facility] | | | | [facility] | | MEDICAL | | | | Analyzer. | | CENTER - | | | | | | LABORATORY | | + + + + + + + + | Specimen | + + | Blood specimen | | (specimen) | + + + + + + + | Performing | Address | City/State/Zipcode | Phone Number | | Organization | | | | + + + + + | [facility] | [address] | [place] | [phone] | | [facility] | | [address] | | | - LABORATORY | | | | + + + + + | [facility] | [address] | [place] | | | [facility] | | [address] | | | - LABORATORY | | | | + + + + + Vitamin B-12 (11/21/2013 10:57 AM PST) + + + + + + | Component | Value | Ref Range | Performed | Pathologist | | | | | At | Signature | + + + + + + | VITAMIN | 1,012 (H)Comment: | 180 - 914 pg/mL | [facility] | | | B-12 | Testing performed on the | | [facility] | | | | [facility] | | MEDICAL | | | | Analyzer. | | CENTER - | | | | | | LABORATORY | | | | DEFICIENT: | | | | | | <145 pg/mL | | | | | | | | | | | | | | | | | | INDETERMINATE: 145-180 | | | | | | pg/mL | | | | + + + + + + + + | Specimen | + + | Blood specimen | | (specimen) | + + + + + + + | Performing | Address | City/State/Zipcode | Phone Number | | Organization | | | | + + + + + | [facility] | [address] | [place], [place] | [phone] | | [facility] | | [address] | | | - LABORATORY | | | | + + + + + | [facility] | [address] | [place] | | | [facility] | | [address] | | | - LABORATORY | | | | + + + + + Glucose, Fasting (11/21/2013 10:57 AM PST) + + + + + + | Component | Value | Ref Range | Performed | Pathologist | | | | | At | Signature | + + + + + + | Glucose, | 192 (H)Comment: IS | 70 - 109 mg/dL | [facility] | | | Fasting | PATIENT FASTING? Y | | [facility] | | | | | | MEDICAL | | | | | | CENTER - | | | | | | LABORATORY | | + + + + + + + + | Specimen | + + | Blood specimen | | (specimen) | + + + + + + + | Performing | Address | City/[facility]/Zipcode | Phone Number | | Organization | | | | + + + + + | [facility] | [address] | [place] | [phone] | | [facility] | | [address] | | | - LABORATORY | | | | + + + + + | [facility] | [address] | [place], [place] | | | [facility] | | [address] | | | - LABORATORY | | | | + + + + + Hepatic Function Panel (11/21/2013 10:57 AM PST) + + + + + + | Component | Value | Ref Range | Performed | Pathologist | | | | | At | Signature | + + + + + + | Alkaline | 109 | 40 - 110 IU/L | [facility] | | | Phosphatase | | | [facility] | | | | | | MEDICAL | | | | | | CENTER - | | | | | | LABORATORY | | + + + + + + | AST | 23 | 10 - 42 IU/L | [facility] | | | | | | [facility] | | | | | | MEDICAL | | | | | | CENTER - | | | | | | LABORATORY | | + + + + + + | ALT | 22 | 6 - 45 IU/L | [facility] | | | | | | [facility] | | | | | | MEDICAL | | | | | | CENTER - | | | | | | LABORATORY | | + + + + + + | Bilirubin | 0.5 | 0.2 - 1.0 mg/dL | [facility] | | | Total | | | [facility] | | | | | | MEDICAL | | | | | | CENTER - | | | | | | LABORATORY | | + + + + + + | Bilirubin | 0.1 | 0.0 - 0.2 mg/dL | [facility] | | | Direct | | | [facility] | | | | | | MEDICAL | | | | | | CENTER - | | | | | | LABORATORY | | + + + + + + | BILIRUBIN | 0.4Comment: DIRECT BILI | 0.00 - 1.00 | [facility] | | | INDIRECT | = CONJUGATED | mg/dL | [facility] | | | | INDIRECT BILI = | | MEDICAL | | | | UNCONJUGATED | | CENTER - | | | | | | LABORATORY | | + + + + + + | Total | 6.9 | 6.0 - 7.8 gm/dL | [facility] | | | Protein | | | [facility] | | | | | | MEDICAL | | | | | | CENTER - | | | | | | LABORATORY | | + + + + + + + + | Specimen | + + | Blood specimen | | (specimen) | + + + + + + + | Performing | Address | City/State/Zipcode | Phone Number | | Organization | | | | + + + + + | [facility] | [address] | [place] | [phone] | | [facility] | | [address] | | | - LABORATORY | | | | + + + + + | [facility] | [address] | [place] | | | [facility] | | [address] | | | - LABORATORY | | | | + + + + + Renal Function Panel (11/21/2013 10:57 AM PST) + + + + + + | Component | Value | Ref Range | Performed | Pathologist | | | | | At | Signature | + + + + + + | Glucose | 192 (H) | 70 - 109 mg/dL | [facility] | | | | | | [facility] | | | | | | MEDICAL | | | | | | CENTER - | | | | | | LABORATORY | | + + + + + + | Calcium | 9.5 | 8.3 - 10.5 | [facility] | | | | | mg/dL | [facility] | | | | | | MEDICAL | | | | | | CENTER - | | | | | | LABORATORY | | + + + + + + | Phosphorus | 3.9 | 2.5 - 4.6 mg/dL | [facility] | | | | | | [facility] | | | | | | MEDICAL | | | | | | CENTER - | | | | | | LABORATORY | | + + + + + + | Albumin | 3.6 | 3.2 - 5.0 gm/dL | [facility] | | | | | | [facility] | | | | | | MEDICAL | | | | | | CENTER - | | | | | | LABORATORY | | + + + + + + | BUN | 21 (H) | 7 - 18 mg/dL | [facility] | | | | | | [facility] | | | | | | MEDICAL | | | | | | CENTER - | | | | | | LABORATORY | | + + + + + + | Creatinine | 1.22 | 0.60 - 1.30 | [facility] | | | | | mg/dL | [facility] | | | | | | MEDICAL | | | | | | CENTER - | | | | | | LABORATORY | | + + + + + + | Estimated | 47 (L)Comment: For | >60 mL/min/A | [facility] | | | GFR | -Americans, | | [facility] | | | | please multiply the | | MEDICAL | | | | result by 1.210 | | CENTER - | | | | This is an estimated GFR | | LABORATORY | | | | and is based on a | | | | | | standard adult | | | | | | body mass (A=1.73m2) and | | | | | | serum creatinine | | | | + + + + + + | BUN/Creatin | 17.2 | 12 - 20 | [facility] | | | ine Ratio | | | [facility] | | | | | | MEDICAL | | | | | | CENTER - | | | | | | LABORATORY | | + + + + + + | Na | 133 (L) | 136 - 149 mEq/L | [facility] | | | | | | [facility] | | | | | | MEDICAL | | | | | | CENTER - | | | | | | LABORATORY | | + + + + + + | K | 4.5 | 3.5 - 5.1 mEq/l | [facility] | | | | | | [facility] | | | | | | MEDICAL | | | | | | CENTER - | | | | | | LABORATORY | | + + + + + + | Cl | 99 | 98 - 109 mEq/l | [facility] | | | | | | [facility] | | | | | | MEDICAL | | | | | | CENTER - | | | | | | LABORATORY | | + + + + + + | CO2 | 28 | 24 - 31 mEq/L | [facility] | | | | | | [facility] | | | | | | MEDICAL | | | | | | CENTER - | | | | | | LABORATORY | | + + + + + + | Anion Gap | 10.5 | 6.0 - 17.0 | [facility] | | | | | | [facility] | | | | | | MEDICAL | | | | | | CENTER - | | | | | | LABORATORY | | + + + + + + + + | Specimen | + + | Blood specimen | | (specimen) | + + + + + + + | Performing | Address | City/State/Zipcode | Phone Number | | Organization | | | | + + + + + | [facility] | [address] | [place], [place] | [phone] | | [facility] | | [address] | | | - LABORATORY | | | | + + + + + | [facility] | [address] | [place], [place] | | | [facility] | | [address] | | | - LABORATORY | | | | + + + + + Iron Profile (11/21/2013 10:57 AM PST) + + + + + + | Component | Value | Ref Range | Performed | Pathologist | | | | | At | Signature | + + + + + + | Iron | 56 | 40 - 150 ug/dL | [facility] | | | | | | [facility] | | | | | | MEDICAL | | | | | | CENTER - | | | | | | LABORATORY | | + + + + + + | TIBC | 467 (H) | 235 - 425 ug/dL | [facility] | | | | | | [facility] | | | | | | MEDICAL | | | | | | CENTER - | | | | | | LABORATORY | | + + + + + + | % | 12 (L) | 20 - 55 % | [facility] | | | SATURATION | | | [facility] | | | | | | MEDICAL | | | | | | CENTER - | | | | | | LABORATORY | | + + + + + + | FERRITIN | 33.2Comment: Testing | 11.0 - 306.9 | [facility] | | | | performed on the [facility] | ng/mL | [facility] | | | | [facility] | | MEDICAL | | | | Analyzer. | | CENTER - | | | | | | LABORATORY | | + + + + + + + + | Specimen | + + | Blood specimen | | (specimen) | + + + + + + + | Performing | Address | City/State/Zipcode | Phone Number | | Organization | | | | + + + + + | [facility] | [address] | [place] | [phone] | | [facility] | | [address] | | | - LABORATORY | | | | + + + + + | [facility] | [address] | [place] | | | [facility] | | [address] | | | - LABORATORY | | | | + + + + + CBC with Differential (11/21/2013 10:57 AM PST) + + + + + + | Component | Value | Ref Range | Performed | Pathologist | | | | | At | Signature | + + + + + + | WBC | 11.2 (H) | 4.0 - 11.0 K/uL | [facility] | | | | | | [facility] | | | | | | MEDICAL | | | | | | CENTER - | | | | | | LABORATORY | | + + + + + + | RBC | 3.68 (L) | 3.70 - 5.20 | [facility] | | | | | M/uL | [facility] | | | | | | MEDICAL | | | | | | CENTER - | | | | | | LABORATORY | | + + + + + + | Hemoglobin | 10.7 (L) | 11.5 - 16.0 | [facility] | | | | | gm/dL | [facility] | | | | | | MEDICAL | | | | | | CENTER - | | | | | | LABORATORY | | + + + + + + | Hematocrit | 33.1 (L) | 34.0 - 47.0 % | [facility] | | | | | | [facility] | | | | | | MEDICAL | | | | | | CENTER - | | | | | | LABORATORY | | + + + + + + | MCV | 89.9 | 83.0 - 101.0 fL | [facility] | | | | | | [facility] | | | | | | MEDICAL | | | | | | CENTER - | | | | | | LABORATORY | | + + + + + + | MCH | 29.1 | 28.0 - 35.0 pg | [facility] | | | | | | [facility] | | | | | | MEDICAL | | | | | | CENTER - | | | | | | LABORATORY | | + + + + + + | MCHC | 32.4 | 32.0 - 36.0 | [facility] | | | | | g/dL | [facility] | | | | | | MEDICAL | | | | | | CENTER - | | | | | | LABORATORY | | + + + + + + | RDW-CV | 15.1 (H) | <15.0 % | [facility] | | | | | | [facility] | | | | | | MEDICAL | | | | | | CENTER - | | | | | | LABORATORY | | + + + + + + | Platelet | 422 | 140 - 440 K/uL | [facility] | | | Count | | | [facility] | | | | | | MEDICAL | | | | | | CENTER - | | | | | | LABORATORY | | + + + + + + | % | 70.0 | 45 - 75 % | [facility] | | | Neutrophils | | | [facility] | | | | | | MEDICAL | | | | | | CENTER - | | | | | | LABORATORY | | + + + + + + | % | 20.1 | 20 - 45 % | [facility] | | | Lymphocytes | | | [facility] | | | | | | MEDICAL | | | | | | CENTER - | | | | | | LABORATORY | | + + + + + + | % Monocytes | 5.0 | 4 - 12 % | [facility] | | | | | | [facility] | | [facility] | | | MEDICAL | | | | | | CENTER - | | | | | | LABORATORY | | + + + + + + | % | 3.7 | 0 - 5 % | [facility] | | | Eosinophils | | | [facility] | | | | | | MEDICAL | | | | | | CENTER - | | | | | | LABORATORY | | + + + + + + | % Basophils | 1.2 (H) | 0 - 1 % | [facility] | | | | | | [facility] | | | | | | MEDICAL | | | | | | CENTER - | | | | | | LABORATORY | | + + + + + + | Absolute | 7.9 (H) | 1.5 - 6.6 K/uL | [facility] | | | Neutrophils | | | [facility] | | | | | | MEDICAL | | | | | | CENTER - | | | | | | LABORATORY | | + + + + + + | Absolute | 2.3 | 0.6 - 3.2 K/uL | [facility] | | | Lymphocytes | | | [facility] | | | | | | MEDICAL | | | | | | CENTER - | | | | | | LABORATORY | | + + + + + + | Absolute | 0.6 | 0.0 - 1.0 K/uL | [facility] | | | Monocytes | | | [facility] | | | | | | MEDICAL | | | | | | CENTER - | | | | | | LABORATORY | | + + + + + + | Absolute | 0.4 | 0.0 - 0.4 K/uL | [facility] | | | Eosinophils | | | [facility] | | | | | | MEDICAL | | | | | | CENTER - | | | | | | LABORATORY | | + + + + + + | Absolute | 0.1 | 0.0 - 0.1 K/uL | [facility] | | | Basophils | | | [facility] | | | | | | MEDICAL | | | | | | CENTER - | | | | | | LABORATORY | | + + + + + + + + | Specimen | + + | Blood specimen | | (specimen) | + + + + + + + | Performing | Address | City/State/Zipcode | Phone Number | | Organization | | | | + + + + + | [facility] | [address] | [place] | [phone] | | [facility] | | [address] | | | - LABORATORY | | | | + + + + + | [facility] | [address] | [place] | | | [facility] | | [address] | | | - LABORATORY | | | | + + + + + documented in this encounter Visit Diagnoses + + | Diagnosis | + + | Snoring Other dyspnea and respiratory abnormality | + + | Restless legs syndrome (RLS) | + + | Obesity Obesity, unspecified | + + | HBP (high blood pressure) Unspecified essential hypertension | + + | Diabetes type 2, uncontrolled (HCC) Type II or unspecified type diabetes mellitus | | without mention of complication, uncontrolled | + + | Hypothyroidism Unspecified hypothyroidism | + + documented in this encounter"
--- OUTSIDE RECORDS SUMMARY | ~2019-10-17 | XMS | Encounter Summary ---
Demographics + + + | Address | [address] | | | [place] [address] | + + + | Home Phone | | + + + | Preferred Language | Unknown | + + + | Marital Status | | + + + | Sabianist Affiliation | Unknown | + + + | Race | Unknown | + + + | Ethnic Group | Unknown | + + + Author + + + | Author | [facility] | | | and [place] | + + + | Organization | [facility] | | | and [place] | + + + | Address | Unknown | + + + | Phone | Unavailable | + + + Support + + + + + | Name | Relationship | Address | Phone | + + + + + | Deonte Simms V | ECON | [address] | | | | | [place] | | | | | [address] | | + + + + + Care Team Providers + +------+ + | Care Blockman Name | Role | Phone | + +------+ + | Donnie Amezquita DO | PCP | | + +------+ + Encounter Details +--------+ + + + + | Date | Type | Department | Care Team | Description | +--------+ + + + + | 07/07/ | Documentati | [facility] | Haseeb Dempsey PA | | | 2014 | on | SLEEP DISORDER [address] | [address] | | | | | [address] [place] | [place] | | | | | [place] [id number] | [address] | | | | | [phone] | | | +--------+ + + + [...] documented as of this encounter Progress Notes Haseeb Dempsey PA - 07/07/2015 1:03 PM PDT"Halina" was last seen in our office on 04/22/2014 . We have left messages for her to schedule her follow up appointment on three occasions. She has not returned our phone calls. We will not make further calls. Problem #1: OBSTRUCTIVE SLEEP APNEA (327.23) This is controlled with CPAP. Her compliance was going well at her last appointment. She did not cancel or show up for her follow up appointment and has not returned phone calls. 1. I will follow up with Halina at her request. We will not make further efforts to schedu le . Cc: Donnie Amezquita DO documented in this enc ounter Plan of Treatment +--------+---------+ + + + | Date | Type | Specialty | Care Team | Description | +--------+---------+ + + + | 11/06/ | Office | Vascular Surgery | Jacinto Tierney MD | | | 2019 | Visit | | [address] | | | | | | [address] | | | | | | [place] [address] | | | | | | [phone] | | | | | | | | +--------+---------+ + + + | 11/18/ | Office | Nephrology | Fermín Muse MD | | | 2019 | Visit | | [address] [facility] [address] | | | | | | [address] | | | | | | [address] | | | | | | | | +--------+---------+ + + + | 12/26/ | Office | Cardiology | Ashlyn Gallagher | | | 2019 | Visit | | [address] | | | | | | [address] | | | | | | [place] [address] | | | | | | [phone] | | | | | | | | +--------+---------+ + + + documented as of this encounter Visit Diagnoses Not on filedocumented in this encounter
--- OUTSIDE RECORDS SUMMARY | ~2019-10-17 | XMS | Encounter Summary ---
Demographics + + + | Address | [address] | | | [place] [address] | + + + | Home Phone | | + + + | Preferred Language | Unknown | + + + | Marital Status | | + + + | Confucianism Affiliation | Unknown | + + + [...] Deonte Simms V | ECON | [address] | | | | | [place] | | | | | [address] | | + + + + + Care Team Providers + +------+ + | Care Preschool Associate Teacher Name | Role | Phone | + +------+ + | Nikos Crane PCP | | | MD | | | + +------+ + Encounter Details +--------+ + + + + | Date | Type | Department | Care Team | Description | +--------+ + + + + | 08/02/ | Telephone | [facility] | Ama ElizabethDO | | | 2019 | | CENTER CV INTRA OP | [address] | | | | | [address] | [place], [place] | | | | | [place], [place] | [address] | | | | | [address] | | | | | | [phone] | | | +--------+ + + + [...] | | | | | | [place] | | | | | | [place] [address] | | | | | | [phone] | | | | | | | | +--------+---------+ + + + | 11/18/ | Office | Nephrology | Fermín Muse MD | | | 2019 | Visit | | [address] | | | | | | [address] [place] | | | | | | [address] | | | | | | | | +--------+---------+ + + + | 12/26/ | Office | Cardiology | Ashlyn Gallagher | | | 2019 | Visit | | [address] | | | | | | [place] | | | | | | [place] [address] | | | | | | [phone] | | | | | | | | +--------+---------+ + + + documented as of this encounter Visit Diagnoses Not on filedocumented in this encounter"
--- OUTSIDE RECORDS SUMMARY | ~2019-10-17 | XMS | Encounter Summary ---
Demographics + + + | Address | [address] | | | [place] [address] | + + + | Home Phone | | + + + | Preferred Language | Unknown | + + + | Marital Status | | + + + | Anglican Affiliation | Unknown | + + + | Race | Unknown | + + + | Ethnic Group | Unknown | + + + Author + + + | Author | [facility] | | | and [place] | + + + | Organization | [facility] | | | and [place] | + + + | Address | Unknown | + + + | Phone | Unavailable | + + + Support + + + + + | Name | Relationship | Address | Phone | + + + + + | Deonte Simms V | ECON | [address] | | | | | [place] | | | | | [address] | | + + + + + Care Team Providers + +------+ + | Care Signing Teacher Name | Role | Phone | + +------+ + | Donnie Amezquita DO | PCP | | + +------+ + Reason for Visit +---------+ + | Reason | Comments | +---------+ + | Consult | | +---------+ + | Snoring | | +---------+ + Encounter Details +--------+---------+ + + + | Date | Type | Department | Care Team | Description | +--------+---------+ + + + | 11/21/ | Office | [facility] | Hany Fiore | Snoring (Primary | | 2013 | Visit | SLEEP DISORDER [address] | MD [address] | Dx); Restless legs | | | | [address] | [address] [place] | syndrome (RLS); | | | | [place] [address] | [place] [address] | Organic insomnia; | | | | [phone] | [phone] | REM sleep behavior | | | | | | disorder; Hypnagogic | | | | | | hallucinations; | | | | | | Obesity; Diabetes | | | | | | type 2, uncontrolled | | | | | | (HCC); HBP (high | | | | | | blood pressure); | | | | | | Depression; | | | | | | Hypothyroidism | +--------+---------+ + + + Social History [...] + + + | Blood Pressure | 158/88 | 11/21/2013 8:50 AM | | | | | PST | | + + + + + | Pulse | 98 | 11/21/2013 8:50 AM | | | | | PST | | + + + + + | Temperature | - | - | | + + + + + | Respiratory Rate | 14 | 11/21/2013 8:50 AM | | | | | PST | | + + + + + | Oxygen Saturation | - | - | | + + + + + | Inhaled Oxygen | - | - | | | Concentration | | | | + + + + + | Weight | 118.1 kg (260 lb 6.4 | 11/21/2013 8:50 AM | | | | oz) | PST | | + + + + + | Height | 162.6 cm (5' 4") | 11/21/2013 8:50 AM | | | | | PST | | + + + + + | Body Mass Index | 44.7 | 11/21/2013 8:50 AM | | | | | PST | | + + + + + documented in this encounter Progress Notes Hany Fiore Jr., MD - 11/21/2013 9:16 AM PSTFormatting of this note might be differen t from the original. [facility] [place] [address] Ref: Donnie Amezquita, CC: Chief Complaint Patient presents with Consult Snoring History of the Present Illness:This is a 48 year old female who is referred for sleep medic ine consultation by Dr. Dorothy Amezquita because of possible NARESH. Other significant medical issues include AODM, hypothyroidism, HBP, obesity. The patient's records (Dr. Dorothy Amezquita from 11/07/19) are reviewed. The patient is interviewed and examined. Bedtime is usually about 11pm and rise time is about 6:15am. On off days bedtime is 1-2am and rise time is about 9-10am. When she goes to bed at 11pm she has a sleep latency of about 2-3 hours. When she goes to bed at 1-2am she has a sleep latency. Her bedroom is dark in the morning. She has nocturia 1-2 karan es a night but she has a hard time getting back to sleep - she just lays down for 45 minutes or so. Her mind races - she usually thinks about her daughter (the daughter has some severe situation issues over which the patient can do very little). She feels that she is in a rut and possible depressed - this has been going on for at least a couple years. She doesn't fe el a situational component to this. She gets heartburn at night frequently. She rarely has n ight sweats but she does have hot flashes (perimenopausal). She awakens every morning with a dry mouth and nasal/sinus congestion. She doesn't have morning headaches. She dreams in her sleep. She can begin dreaming immediately upon falling asleep and she has had hypnagogic hallucinations. She doesn't walk in her sleep. She has actually moved and ac rosio out dreams (arms primarily) during dreams. She has given her a bloody nose by ac ting out dreams in the past. She also talks in her sleep. She has dream enactment several ti mes a week. She denies sleep paralysis. She has restlessness in her legs at night. 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 But she will feel that she needs to move at night (every night) because her legs get a very hard to described but uncomfortable restless feelings (like someone is tickling her legs and touchi ng them) associated with a desire to move her legs. Her has noted that her legs will occasionally kick at night after she falls asleep too. This occurs every night. She snores every night and loudly. Her also notes that she stops breathing at night too. This is worse when she sleeps supine. A few months ago she stopped sleeping in her bed and started sleeping in her easy chair. She did this because back pain - their mattress is about 10 years old. They don't think that the snoring is any better in the recliner. She sti ll snores, has apneas, and awakens herself snorting and gasping for air. In the daytime she feels fatigued and sleepy. She catches herself falling asleep inadverten tly in the daytime. She denies cataplexy. She does have occasional attacks of sleep in the d aytime. She will then nap for about 60 minutes which makes her feel a little better. She alfaro s take a couple of rather long naps a day. She doesn't fall asleep driving. She drinks 1-2 c ups of coffee in the morning. Past Medical History: has a past medical history of Diabetes type 2, uncontrolled; Periphe ral neuropathy; HBP (high blood pressure); Obesity; Restless legs syndrome (RLS); Snoring; a nd Hypothyroidism. has past surgical history that includes Cholecystectomy (2000); coccygeal cyst (1995); and section, classic (2000). No Known Allergies Current Outpatient Prescriptions Medication Sig Dispense Refill albuterol (VENTOLIN HFA) 90 mcg/puff inhaler Inhale 2 puffs into the lungs every 6 hour s as needed. Cholecalciferol (VITAMIN D PO) Take 50,000 Units by mouth Three times a week. ergocalciferol (VITAMIN D-2) 50,000 units capsule Fe-Succ Ac-C-Thre Ac-B12-FA (FERREX 150 FORTE PLUS) 50-100 MG CAPS Insulin Glargine (LANTUS SC) Inject 80 Units under the skin Daily. iron polysaccharides (FERREX 150) 150 MG capsule Take 150 mg by mouth Daily. LEVOTHYROXINE SODIUM Take 275 mcg by mouth Daily. lisinopril (PRINIVIL, ZESTRIL) 20 mg tablet Take 20 mg by mouth Daily. METFORMIN HCL PO Take 2,000 mg by mouth Daily. METOPROLOL SUCCINATE ER PO Take 50 mg by mouth Daily. traMADol (ULTRAM) 50 mg tablet Take 50 mg by mouth every 6 hours as needed. vitamin B-12 (CYANOCOBALAMIN) 1000 MCG tablet Take 2,000 mcg by mouth Daily. Family Medical History: family history includes Diabetes in her father; Heart disease in he r mother; High blood pressure in her mother; and Sleep Apnea in her mother. indicated that her mother is alive. She indicated that her father is . She indicate d that her sister is alive. She indicated that her brother is . She indicated that h er daughter is alive. She indicated that both of her sons are alive. 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 Weight gain of about 50 pounds after weight loss of 50 pounds. Eyes:Denies sudden loss of vision, diplopia, blurred vision. ENT: Denies loss of hearing, vertigo, bleeding gums or poor dental repair. Card:Occasional sharp chest pain occasionally with exertion occasionally at rest. Resp: Denies cough, wheezing, asthma, hemoptysis GI: Denies vomiting, abdominal pain, diarrhea, hematochezia. Frequent constipation and na usea. : Denies dysuria, pyuria, hematuria, frequency, incontinence MS: Leg pain Neuro: Denies seizures, strokes, loss of consciousness, syncope, concussions. Neuropathy of feet and lower legs. Psych: Denies: depression, anxiety, panic, past history physical or sexual abuse, severe traumatic experiences Endocrine: Denies heat or cold intolerance Heme: Denies easy bruising or prolonged bleeding. No history of transfusions Allergic/Immunologic: Mild seasonal allergies PE: BP 158/88 | Pulse 98 | Resp 14 | Ht 1.626 m (5' 4") | Wt 118.117 kg (260 lb 6.4 oz) | B CO 44.70 kg/m2 Gen: obese, alert and not in acute distress HEENT:Head: Normocephalic, no lesions, without obvious abnormality. Eye: Normal external eye, conjunctiva, lids cornea, LAVELL. Nose: Normal external nose, mucus membranes and septum. Pharynx: Dental Hygiene adequate. Normal buccal mucosa. Tonsillar grade 1. Mallampati 3-4. Neck / Thyroid: Supple, no masses, nodes, nodules or enlargement. Pulm: lungs clear to auscultation Card: regular rate and rhythm, S1, S2 normal, no murmur, click, rub or gallop GI: soft and normal bowel sounds : Not examined Rectal: Not Examined Ext: peripheral pulses normal, no pedal edema, no clubbing or cyanosis Skin:Not examined Neuro:Grossly normal Psych:age appropriate and casually dressedoriented to time, place and person, mood and aff ect are within normal limits, pt is a good historian; no memory problems were noted Heme: No cervical LN Questionnaires Review: The score of 18 on the [place] Sleepiness scale suggests severe exce ssive daytime sleepiness. The score of 22 on the Insomnia Severity Scale suggests that the p atient severe dissatisfaction with the quality of her sleep. The score of 32 on the Monteiro Dep ression Inventory suggests rather severe depression. The SF36v2 suggests recognized signific ant impairment in physical functioning, body pain, and vitality. Assessment: Snoring and witnessed apneas: I suspect that the patient has NARESH and possibly s evere NARSEH. I have discussed in detail the pathophysiology of Obstructive Sleep Apnea with th e patient. I've discussed that during NREM sleep the skeletal muscles relax and in REM sleep the skeletal muscles are paralyzed. The muscles that support the back of the throat (the to ngue in particular) also relax during NREM sleep and are paralyzed in REM sleep and when thi s occurs, the back of the throat collapses some. In some patients with a smaller back of the throat, this can result in obstruction to the flow of air. This is fundamentally what occur s in NARESH. This can cause repetitive obstruction to the flow of air all night long cause a pe rson with NARESH to awaken repeatedly at night to "open" the back of the throat. If airflow is significantly restricted, blood oxygen levels can fall. The combination of the repetitive aw akenings at night and low oxygen levels lead to numerous other physiologic abnormalities whi ch can result in nocturia, nocturnal heartburn, night sweats, morning dry mouth, morning hea dache, and daytime fatigue/sleepiness. Additionally, NARESH can cause hypertension and it drama tically increases the risk of heart disease, heart attack, and stroke. It may play a causati ve role in obesity and AODM. Untreated NARESH also dramatically increases the risk of fall asle ep car accidents. Treatment can help with all of these issues. I've discussed treatment issu es also. I've also discussed the fact that if NARESH is present, we must first get it treated - it can, untreated, increase the severity of her other sleep issues. Restless Legs Syndrome: I strongly suspect that the patient also has RLS. I've discussed Restless Legs Syndrome with the patient. I've also discussed Periodic Limb Movements of Slee p. I've discussed the relationship between the two. I've also discussed that I generally off er treatment symptomatically. I've also discussed an overview of treatment: 1) maintain a fe rritin level above 50; 2) Bedtime leg/arm massage; 3) review the need for medications that can worsen RLS/PLMS (such as antidepressants (except for buproprion) and antihistamines); 4) prescribe medications such as a) dopaminergics, b) benzodiazepine receptor agonists, c) opi ates, and/or d) atypical anti-seizure agents. Organic Insomnia: Besides NARESH and RLS contributing to insomnia I also suspect that she sales s psychophysiologic components (learned or conditioned insomnia) and depression contributing to her insomnia. Possible REM Sleep Behavior Disorder: I've discussed this possibility with her also. Hypnagogic Hallucinations: I doubt narcolepsy but if this persists after the above issues are dealt with, we may need to consider a narcolepsy evaluation. Obesity: The bidirectional relationship between NARESH and Obesity was discussed. AODM: Treating NARESH, if present, can result in significant improvement in diabetic control . HBP: Treating NARESH, if present, can also result in significantly improved BP control Depression: The patient is not suicidal. Plan: Home, unattended, multiparameter, sleep apnea study tonight with f/u early next week. CBC, Chem Profile, HbA1c, Iron panel, B12, Folate Today, 60 minutes was spent face to face with the patient; the majority of time was spent c ashli. CC: Dr. Dorothy Amezquita imon, Hany Bruno Jr., MD - 11/21/2013 9:15 AM PSTFormatting of this note might be different from the origin al. 11/21/13 0900 Monteiro Depression Inventory-II Depression Score 32 - Severe depression Insomnia Severity Index Insomnia Severity Index 22 [place] Sleepiness Scale Sitting and reading 3 Watching TV 3 Sitting, inactive in a public place (e.g. a theatre or a meeting) 3 As a passenger in a car for an hour without a break 2 Lying down to rest in the afternoon when circumstances permit 3 Sitting and talking to someone 1 Sitting quietly after a lunch without alcohol 3 In a car, while stopped for a few minutes in traffic 0 Total score 18 SF-36v2 Score PF 33.88 RP 49.51 BP 29.15 GH 43.4 VT 33.36 SF 45.94 RE 48.1 MH 50.01 PCS 34.64 MCS 50.07 documented in t his encounter Plan of Treatment +--------+---------+ + + + | Date | Type | Specialty | Care Team | Description | +--------+---------+ + + + | 11/06/ | Office | Vascular Surgery | Jacinto Tierney MD | | | 2020 | Visit | | [address] | | | | | | [address] [address] | | | | | | [place] [address] | | | | | | [phone] | | | | | | | | +--------+---------+ + + + | 11/18/ | Office | Nephrology | Fermín Muse MD | | | 2019 | Visit | | [address] [place] | | | | | | [address] [place] | | | | | | [address] | | | | | | | | +--------+---------+ + + + | 12/26/ | Office | Cardiology | Ashlyn Gallagher | | | 2019 | Visit | | [address] | | | | | | [address] | | | | | | [place] [address] | | | | | | [phone] | | | | | | | | +--------+---------+ + + + documented as of this encounter Results Hemoglobin A1C (11/21/2013 10:57 AM PST) + + + + + + | Component | Value | Ref Range | Performed | Pathologist | | | | | At | Signature | + + + + + + | Hemoglobin | 11.6 (H)Comment: | 4.3 - 5.8 % | [facility] | | | A1c | DIABETIC PATIENT RANGES: | | [facility] | | | | 6.2-7.0% = [...] + | [facility] | [address] | [place] | [phone] | | [facility] | | [address] | | | - LABORATORY | | | | + + + + + | [facility] | [address] | [place], [place] | | | [facility] | | [address] | | | - LABORATORY | | [...] on the Bhavya | ng/mL | [facility] | | | | [facility] | | MEDICAL | | | [...] + | [facility] | [address] | [place] | [phone] | | [facility] | | [address] | | | - LABORATORY | | | | + + + + + | [facility] | [address] | [place] | | | [facility] | | [address] | | | - LABORATORY | | | | + + + + + Vitamin B-12 (11/21/2013 10:57 AM PST) + + + + + + | Component | Value | Ref Range | Performed | Pathologist | | | | | At | Signature | + + + + + + | VITAMIN | 1,012 (H)Comment: | 180 - 914 pg/mL | [facility] | | | B-12 | Testing performed on the | | [facility] | | | | [facility] | | MEDICAL | | | [...] + | [facility] | [address] | [place] | [phone] | | [facility] | | [address] | | | - LABORATORY | | | | + + + + + | [facility] | [address] | [place] | | | [facility] | | [address] | | | - LABORATORY | | [...] Fasting | PATIENT FASTING? Y | | [facility] | | | [...] + | [facility] | [address] | [place], [place] | [phone] | | [facility] | | [address] | | | - LABORATORY | | | | + + + + + | [facility] | [address] | [place], [place] | | | [facility] | | [address] | | | - LABORATORY | | [...] + | [facility] | [address] | [place] | [phone] | | [facility] | | [address] | | | - LABORATORY | | | | + + + + + | [facility] | [address] | [place] | | | [facility] | | [address] | | | - LABORATORY | | [...] (H) | 70 - 109 mg/dL | [facility] | | | | [...] (H) | 7 - 18 mg/dL | [facility] | | | | | | [facility] | | | | | | MEDICAL | | | | | | CENTER - | | | | | | LABORATORY | | + + + + + + | Creatinine | 1.22 | 0.60 - 1.30 | [facility] | | | | | mg/dL | [facility] | | | | | | MEDICAL | | | | | | CENTER - | | | | | | LABORATORY | | + + + + + + | Estimated | 47 (L)Comment: For | >60 mL/min/A | [facility] | | | GFR | -Americans, | [...] | 17.2 | 12 - 20 | [facility] | | | ine Ratio | | | [facility] | | [...] + | [facility] | [address] | [place], [place] | [phone] | | [facility] | | [address] | | | - LABORATORY | | | | + + + + + | [facility] | [address] | [place], [place] | | | [facility] | | [address] | | | - LABORATORY | | [...] | | | SATURATION | | | [facility] | | | | | | MEDICAL | | | | | | CENTER - | | | | | | LABORATORY | | + + + + + + | [facility] | 33.2Comment: Testing | 11.0 - 306.9 | [facility] | | | | performed on the Bhavya | ng/mL | [facility] | | | | [facility] | | MEDICAL | | | [...] + | [facility] | [address] | [place], [place] | [phone] | | [facility] | | [address] | | | - LABORATORY | | | | + + + + + | [facility] | [address] | [place] | | | [facility] | | [address] | | | - LABORATORY | | [...] (H) | 4.0 - 11.0 K/uL | [facility] | | | | | | [facility] | | | | | | MEDICAL | | | | | | CENTER - | | | | | | LABORATORY | | + + + + + + | RBC | 3.68 (L) | 3.70 - 5.20 | [facility] | | | | | M/uL | [facility] | | | | | | [...] 0.1 | 0.0 - 0.1 K/uL | [facility] | | | Basophils | | | [facility] | | | | | | [...] + | [facility] | [address] | [place] | [phone] | | [facility] | | [address] | | | - LABORATORY | | | | + + + + + | [facility] | [address] | [place] | | | [facility] | | [address] | | | - LABORATORY | | | | + + + + + documented in this encounter Visit Diagnoses + + | Diagnosis | + + | Snoring - Primary Other dyspnea and respiratory abnormality | + + | Restless legs syndrome (RLS) | + + | Organic insomnia Organic insomnia, unspecified | + + | REM sleep behavior disorder | + + | Hypnagogic hallucinations Hallucinations | + + | Obesity Obesity, unspecified | + + | Diabetes type 2, uncontrolled (HCC) Type II or unspecified type diabetes mellitus | | without mention of complication, uncontrolled | + + | HBP (high blood pressure) Unspecified essential hypertension | + + | Depression Depressive disorder, not elsewhere classified | + + | Hypothyroidism Unspecified hypothyroidism | + + documented in this encounter
--- OUTSIDE RECORDS SUMMARY | ~2019-10-17 | XMS | Clinical Summary ---
Demographics + + + | Address | [address] | | | [place] [address] | + + + | Home Phone | | + + + | Preferred Language | Unknown | + + + | Marital Status | | + + + | Jain Affiliation | Unknown | + + + | Race | Unknown | + + + | Ethnic Group | Unknown | + + + Author + + + | Author | Lavante bitmovin (Historical as of | | | 06-15-19) | + + + | Organization | [facility] (Historical as of | | | 06-15-19) | + + + | Address | Unknown | + + + | Phone | Unavailable | + + + Support + + +---------+ + | Name | Relationship | Address | Phone | + + +---------+ + | Yazmin Johnson | ECON | Unknown | | + + +---------+ + Care Team Providers + +------+ + | Care Pediatric Speech Language Pathologist Name | Role | Phone | + +------+ + | Nikos Crane MD | PP | | + +------+ + Allergies + + + + + + | Active Allergy | Reactions | Severity | Noted | Comments | | | | | Date | | + + + + + + | Amoxicillin-Pot | Other (See Comments) | Medium | 04/11/20 | THRUSH ON THE | | Clavulanate | | | 19 | TONGUE | + + + + + + | Penicillins | Rash | Medium | 04/01/20 | | | | | | 19 | | + + + + + + Current Medications + + +-------+---------+------+------+-------+ | Prescription | Sig. | Disp. | Refills | Star | End | Statu | | | | | | t | Date | s | | | | | | Date | | | + + +-------+---------+------+------+-------+ | nitroGLYCERIN | Place 0.4 mg under | | | | | Activ | | (NITROSTAT) 0.4 MG | the tongue every 5 | | | | | e | | SL tablet | (five) minutes as | | | | | | | | needed for Chest | | | | | | | | pain. | | | | | | + + +-------+---------+------+------+-------+ | metFORMIN | Take 1,000 mg by | | | | | Activ | | (GLUCOPHAGE) 1000 MG | mouth 2 (two) times | | | | | e | | tablet | daily with meals. | | | | | | + + +-------+---------+------+------+-------+ | metoprolol | Take 100 mg by mouth | | | | | Activ | | (TOPROL-XL) 100 MG | daily. | | | | | e | | 24 hr tablet | | | | | | | + + +-------+---------+------+------+-------+ | dapagliflozin | Take 10 mg by mouth | | | | | Activ | | propanediol | every morning. | | | | | e | | (FARXIGA) 10 MG | | | | | | | | tablet | | | | | | | + + +-------+---------+------+------+-------+ | levothyroxine | Take 100 mcg by | | | | | Activ | | (SYNTHROID) 100 MCG | mouth every morning | | | | | e | | tablet | before breakfast. | | | | | | + + +-------+---------+------+------+-------+ | pregabalin | Take 50 mg by mouth | | | | | Activ | | (LYRICA) 50 MG | 3 (three) times | | | | | e | | capsule | daily. | | | | | | + + +-------+---------+------+------+-------+ | ergocalciferol | Take 50,000 Units by | | | | | Activ | | (DRISDOL) 57405 | mouth once a week. | | | | | e | | units capsule | | | | | | | + + +-------+---------+------+------+-------+ | Inulin (FIBER | Take by mouth. | | | | | Activ | | CHOICE FRUITY BITES | | | | | | e | | PO) | | | | | | | + + +-------+---------+------+------+-------+ | ferrous sulfate, | Take 65 mg of iron | | | | | Activ | | 65 FE, 324 (65 FE) | by mouth 3 (three) | | | | | e | | MG EC tablet | times daily with | | | | | | | | meals. | | | | | | + + +-------+---------+------+------+-------+ | cyanocobalamin | Take 2,500 mcg by | | | | | Activ | | (VITAMIN B-12) 2000 | mouth daily. | | | | | e | | MCG tablet | | | | | | | + + +-------+---------+------+------+-------+ | Insulin Degludec | Inject into the | | | | | Activ | | (TRESIBA FLEXTOUCH | skin. | | | | | e | | SC) | | | | | | | + + +-------+---------+------+------+-------+ | insulin glulisine | Inject into the | | | | | Activ | | (APIDRA) 100 UNIT/ML | skin 3 (three) times | | | | | e | | injection | daily before meals. | | | | | | + + +-------+---------+------+------+-------+ | aspirin 81 MG | Take 81 mg by mouth | | | | | Activ | | chewable tablet | daily with | | | | | e | | | breakfast. | | | | | | + + +-------+---------+------+------+-------+ | ibuprofen (ADVIL) | Take 200 mg by mouth | | | | | Activ | | 200 MG tablet | every 6 (six) hours | | | | | e | | | as needed for Pain. | | | | | | + + +-------+---------+------+------+-------+ Active Problems Not on file Family History + + +------+ + | Medical History | Relation | Name | Comments | + + +------+ + | Diabetes type I | Father | | | + + +------+ + | Diabetes type II | Mother | | | + + +------+ + | Heart attack | Mother | | | + + +------+ + | High cholesterol | Mother | | | + + +------+ + | Hypertension | Mother | | | + + +------+ + + +------+ + + | Relation | Name | Status | Comments | + +------+ + + | Father | | | | | | | (Age | | | | | 42) | | + +------+ + + | Mother | | Alive | | + +------+ + + Social History + +-------+ +--------+------+ | Tobacco Use | Types | Packs/Day | Years | Date | | | | | Used | | + +-------+ +--------+------+ | Former Smoker | | | | | + +-------+ +--------+------+ + +---+---+---+ | Smokeless Tobacco: | | | | | Never Used | | | | + +---+---+---+ + + +---------+ + | Alcohol Use | Drinks/We | oz/Week | Comments | | | ek | | | + + +---------+ + | Yes | | | RARELY | + + +---------+ + + + + | Sex Assigned at | Date Recorded | | | | + + + | Not on file | | + + + Last Filed Vital Signs + + + + | Vital Sign | Reading | Time Taken | + + + + | Blood Pressure | 130/60 | 04/11/2019 10:49 AM PDT | + + + + | Pulse | 88 | 04/11/2019 10:49 AM PDT | + + + + | Temperature | - | - | + + + + | Respiratory Rate | - | - | + + + + | Oxygen Saturation | 95% | 04/11/2019 10:49 AM PDT | + + + + | Inhaled Oxygen | - | - | | Concentration | | | + + + + | Weight | 127 kg (280 lb) | 04/11/2019 10:49 AM PDT | + + + + | Height | 162.6 cm (5' 4") | 04/11/2019 10:49 AM PDT | + + + + | Body Mass Index | 48.06 | 04/11/2019 10:49 AM PDT | + + + + Plan of Treatment + + + + + | Health Maintenance | Due Date | Last Done | Comments | + + + + + | Vaccine: | | 07/30/1996 | | | Dtap/Tdap/Td (1 - | 6 | | | | Tdap) | | | | + + + + + | Cervical Cancer | | | | | Screening (Pap) | 7 | | | + + + + + | Breast Cancer | | | | | Screening | 7 | | | | (Mammogram) | | | | + + + + + | Colon Cancer | | | | | Screening | 7 | | | | (Colonoscopy) | | | | + + + + + | Vaccine: Zoster (1 | | | | | of 2) | 7 | | | + + + + + | Statin Therapy | | | | | (optimal intensity) | 9 | | | + + + + + | Vaccine: Influenza | | 07/29/2016 | | | (#1) | 9 | | | + + + + + Results Not on filefrom Last 3 Months Insurance +---------+--------+ +------+-------+ + | Payer | Benefi | Subscriber | Type | Phone | Address | | | t Plan | ID | | | | | | / | | | | | | | Group | | | | | +---------+--------+ +------+-------+ + | [employer] | PREMER | [id number] | | | [address] | | | A BLUE | [id number] | | | [place], [place] | | | CARD | | | | [phone] | +---------+--------+ +------+-------+ + + +--------+ +--------+ + + | Guarantor Name | Accoun | Relation to | Date | Phone | Billing Address | | | t Type | Patient | of | | | | | | | | | | + +--------+ +--------+ + + | DESHAWN SIMMS | Person | Self [birth year] Home: | [address] [place] [address] | | | al/[place] | | 1965 | [phone] [place] | | | [place] | | [phone] | + +--------+ +--------+ + +
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
--- OUTSIDE RECORDS SUMMARY | ~2019-10-17 | XMS | Encounter Summary ---
Demographics + + + | Address | [address] [facility] [facility] | | | [place] [address] | + + + | Home Phone | | + + + | Preferred Language | Unknown | + + + | Marital Status | | + + + | Episcopalian Affiliation | Unknown | + + + | Race | Unknown | + + + | Ethnic Group | Unknown | + + + Author + + + | Author | [facility] | | | and [place] | + + + | Organization | [facility] | | | and [place] | + + + | Address | Unknown | + + + | Phone | Unavailable | + + + Support + + + + + | Name | Relationship | Address | Phone | + + + + + | Deonte Simms V | ECON | [address] | | | | | [place] | | | | | [address] | | + + + + + Care Team Providers + +------+ + | Care Money Room Teller Name | Role | Phone | + +------+ + | Donnie Amezquita DO | PCP | | + +------+ + Encounter Details +--------+ + + + + | Date | Type | Department | Care Team | Description | +--------+ + + + + | 01/28/ | Hospital | [facility] | Hany Fiore | | | 2013 | Encounter | MED CTR SLEEP | MD John [address] | | | | | [place] [address] | [address] [facility] | | | | | [place], [place] | [place] [address] | | | | | [address] | [phone] | | | | | [phone] | | | +--------+ + + + [...] | | | | | [address] [facility] | | | | | | [place] [address] | | | | | | [phone] | | | | | | | | +--------+---------+ + + + | 11/18/ | Office | Nephrology | Fermín Muse MD | | | 2019 | Visit | | [address] | | | | | | [address] [place] | | | | | | [address] | | | | | | | | +--------+---------+ + + + | 12/26/ | Office | Cardiology | Ashlyn Gallagher | | | 2020 | Visit | | [address] | | | | | | [place] | | | | | | [place] [address] | | | | | | [phone] | | | | | | | | +--------+---------+ + + + documented as of this encounter Visit Diagnoses Not on filedocumented in this encounter"
--- OUTSIDE RECORDS SUMMARY | ~2019-10-17 | XMS | Clinical Summary ---
Demographics + + + | Address | [address] | | | [place] [address] | + + + | Home Phone | | + + + | Preferred Language | Unknown | + + + | Marital Status | | + + + | Taoism Affiliation | Unknown | + + + | Race | Unknown | + + + | Ethnic Group | Unknown | + + + Author + + + | Author | [facility] Where Was it Filmed (Historical as of | | | 06-15-19) | + + + | Organization | [facility] Where Was it Filmed (Historical as of | | | 06-15-19) [...] Team Providers + +------+ + | Care Vest Maker Name | Role | Phone | + [...] | | | Activ | | (DRISDOL) [id number] | mouth once a week. | | [...] +------+-------+ + | PREMERA | PREMER | [id number] | | | [address] [address] | | | A BL[address] | [address] | | | [place], [place] | | | CARD | | | | [address] | +---------+--------+ +------+-------+ + + +--------+ +--------+ + + | Guarantor Name | Accoun | Relation to | Date | Phone | Billing Address | | | t Type | Patient | of | | | | | | | | | | + +--------+ +--------+ + + | DESHAWN SIMMS | Person | Self | [birth year] | Home: | [address] [place] [address] | | | al/Montez | | [phone] | [phone] | [place] | | | [place] | | | [phone] | [phone] | + +--------+ +--------+ + +
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
--- OUTSIDE RECORDS SUMMARY | ~2019-10-17 | XMS | Encounter Summary ---
Demographics + + + | Address | [address] | | | [place] [address] | + + + | Home Phone | | + + + | Preferred Language | Unknown | + + + | Marital Status | | + + + | Methodist Affiliation | Unknown | + + + | Race | Unknown | + + + | Ethnic Group | Unknown | + + + Author + + + | Author | [facility] | | | and [place] | + + + | Organization | [facility] | | [...] [place] | | | | | [address] | | + + + + + Care Team Providers + +------+ + | Care Bridge Expert Name | Role | Phone | + +------+ + | Donnie Amezquita DO | PCP | | + +------+ + Reason for Visit +--------+ + | Reason | Comments | +--------+ + | Apnea | | +--------+ + Encounter Details +--------+---------+ + + + | Date | Type | Department | Care Team | Description | +--------+---------+ + + + | 12/05/ | Office | [facility] | Haseeb Dempsey PA | NARESH on CPAP (Primary | | 2013 | Visit | SLEEP DISORDER [address] | [address] | Dx) | | | | [address] | [place], [place] | | | | | [place] [address] | [address] | | | | | [phone] | | | +--------+---------+ + + + [...] + + + | Blood Pressure | 128/78 | 12/05/2013 9:47 AM | | | | | PST | | + + + + + | Pulse | 88 | 12/05/2013 9:47 AM | | | | | PST | | + + + + + | Temperature | - | - | | + + + + + | Respiratory Rate | 16 | 12/05/2013 9:47 AM | | | | | PST | | + + + + + | Oxygen Saturation | 97% | 12/05/2013 9:47 AM | | | | | PST | | + + + + + | Inhaled Oxygen | - | - | | | Concentration | | | | + + + + + | Weight | 119.3 kg (263 lb 1.6 | 12/05/2013 9:47 AM | | | | oz) | PST | | + + + + + | Height | - | - | | + + + + + | Body Mass Index | 45.16 | 11/21/2013 8:50 AM | | | | | PST | | + + + + + documented in this encounter Progress Notes Haseeb Dempsey PA - 12/05/2013 9:50 AM PST Subjective: Patient ID: Deshawn Simms is a 48 y.o. female. HPI last office visit was: 11/21/2013 date of home, unattended, multiparameter, sleep apnea screenin11/28/2013 AHI: 44.1 O2%: 61% with 86.0 minutes below 90% Machine type: ResMed S9 with nasal pillows obtained from: [facility] in [place] Deshawn comes in for follow up from her home, unattended, multiparameter, sleep apnea screen ing test. I explained the results to him, which showed an AHI of 44.1 with a luciana oxygen d esaturation of 61% and oxygen below 90% for 86.0 minutes. I discussed in detail the pathoph ysiology of obstructive sleep apnea and how CPAP is an effective tool to treat sleep apnea. We also discussed other treatment options for apnea, such as dental device and phase I and II surgery. She is interested in using CPAP at this time and feels that she will do well. Review of Systems Objective: Physical Exam Assessment: Problem #1: OBSTRUCTIVE SLEEP APNEA (327.23) Her study shows severe apnea, with an AHI of 44.1 and oxygen desaturation to 61%. Plan: She is to continue with CPAP indefinitely. We have faxed a prescription to [facility] for a ResM ed S9 with a pressure range of 5-20 cm. We will do a nocturnal pulse oxymetry study when artie blackwood is compliant with her CPAP. I will follow up again in 1 week, sooner prn. Thirty minutes were spent [id number], with the majority of time spent in [...] | | | | | | [address] | | | | | | [place] [address] | | | | | | [phone] | | | | | | | | +--------+---------+ + + + | 11/18/ | Office | Nephrology | Fermín Muse MD | | | 2019 | Visit | | [address] | | | | | | [facility] | | | | | | [address] | | | | | | | | +--------+---------+ + + + | 12/26/ | Office | Cardiology | Ashlyn Gallagher | | | 2019 | Visit | | [address] | | | | | | [place] | | | | | | [place] [address] | | | | | | [phone] | | | | | | | | +--------+---------+ + + + documented as of this encounter Visit Diagnoses + + | Diagnosis | + + | NARESH on CPAP - Primary Obstructive sleep apnea (adult) (pediatric) | + + documented in this encounter"
--- OUTSIDE RECORDS SUMMARY | ~2019-10-17 | XMS | Encounter Summary ---
Demographics + + + | Address | [address] | | | [place] [address] | + + + | Home Phone | | + + + | Preferred Language | Unknown | + + + | Marital Status | | + + + | Jehovah'S Witness Affiliation | Unknown | + + + | Race | Unknown | + + + | Ethnic Group | Unknown | + + + Author + + + | Author | [facility] | | | and [place] | + + + | Organization | [facility] | | | and [place] | + + + | Address | Unknown | + + + | Phone | Unavailable | + + + Support + + + + + | Name | Relationship | Address | Phone | + + + + + | Deonte Simms V | ECON | [address] | | | | | [place] | | | | | [address] | | + + + + + Care Team Providers + +------+ + | Care Engineering Design Manager Name | Role | Phone | + +------+ + | Donnie Amezquita DO | PCP | | + +------+ + Encounter Details +--------+ + + + + | Date | Type | Department | Care Team | Description | +--------+ + + + + | 07/07/ | Documentati | [facility] | Haseeb Dempsey PA | | | 2014 | on | SLEEP DISORDER [address] | [address] | | | | | [address] | [place] | | | | | [place] [address] | [address] | | | | | [phone] | | | +--------+ + + + [...] | | | | | | [place] [address] | | | | | | [phone] | | | | | | | | +--------+---------+ + + + | 11/18/ | Office | Nephrology | Fermín Muse MD | | | 2019 | Visit | | [address] [facility] [address] | | | | | | [address] [place] | | | | | | [address] | | | | | | | | +--------+---------+ + + + | 12/26/ | Office | Cardiology | Ashlyn Gallagher | | | 2019 | Visit | | [address] | | | | | | [address] | | | | | | [place] [address] | | | | | | [phone] | | | | | | | | +--------+---------+ + + + documented as of this encounter Visit Diagnoses Not on filedocumented in this encounter
--- OUTSIDE RECORDS SUMMARY | ~2019-10-17 | XMS | Encounter Summary ---
Demographics + + + | Address | [address] [facility] [address] | | | [place] [address] | + + + | Home Phone | | + + + | Preferred Language | Unknown | + + + | Marital Status | | + + + | Caodaism Affiliation | Unknown | + + + [...] V | ECON | [address] | | | | | [place] | | | | | [address] | | + + + + + Care Team Providers + +------+ + | Care Procurement Agent Name | Role | Phone | [...] | 12/05/ | Office | [facility] | Haseeb Dempsey PA | NARESH on CPAP (Primary | | 2013 | Visit | SLEEP DISORDER [address] | [address] | Dx) | | | | [address] | [place], [place] | | | | | [place] [address] | [address] | | | | | [phone] | | | +--------+---------+ + + + [...] pillows obtained from: [facility] in [place] Deshawn comes in for follow up from [...] indefinitely. We have faxed a prescription to [facility] for a ResM ed S9 with a pressure range of 5-20 cm. We will do a nocturnal pulse oxymetry study when artie blackwood is compliant with her CPAP. I will follow up again in 1 week, sooner prn. Thirty minutes were spent [id number], with the majority of time spent in [...] | | | | | | [address] | | | | | | [place] [address] | | | | | | [phone] | | | | | | | | +--------+---------+ + + + | 11/18/ | Office | Nephrology | Fermín Muse MD | | | 2019 | Visit | | [address] | | | | | | [address] [facility] | | | | | | [address] | | | | | | | | +--------+---------+ + + + | 12/26/ | Office | Cardiology | Ashlyn Gallagher | | | 2019 | Visit | | [address] | | | | | | [address] | | | | | | [place] [address] | | | | | | [phone] | | | | | | | | +--------+---------+ + + + documented as of this encounter Visit Diagnoses + + | Diagnosis | + + | NARESH on CPAP - Primary Obstructive sleep apnea (adult) (pediatric) | + + documented in this encounter"
--- OUTSIDE RECORDS SUMMARY | ~2019-10-17 | XMS | Clinical Summary ---
Demographics + + + | Address | [address] | | | [place] [address] | + + + | Home Phone | | + + + | Preferred Language | Unknown | + + + | Marital Status | | + + + | Scientologist Affiliation | Unknown | + + + | Race | Unknown | + + + | Ethnic Group | Unknown | + + + Author + + + | Author | [facility] | | | and [place] | + + + | Organization | [facility] | | | and [place] | + + + | Address | Unknown | + + + | Phone | Unavailable | + + + Support + + + + + | Name | Relationship | Address | Phone | + + + + + | Deonte Simms V | ECON | [address] | | | | | [place] | | | | | [address] | | + + + + + Care Team Providers + +------+ + | Care Analytical Engineer Name | Role | Phone | + +------+ + | Nikos Crane | PCP | | | MD | | | + +------+ + Allergies + [...] + + + + + + | Lisinopril | Cough | | 09/05/20 | | | | | | 19 | | + + + + + + | Penicillins | Rash | Medium | 04/01/20 | Rash | | | | | 19 | | + + + + + + Medications + + + +---------+------+------+-------+ | Medication | Sig | Dispensed | Refills | Star | End | Statu | | | | | | t | Date | s | | | | | | Date | | | + + + +---------+------+------+-------+ | UNCODED MEDICATION | [id number] CPAP RES MED | 1 | 0 | 02/0 | | Activ | | | S9- MIN 5 cm MAX | Device | | 6/20 | | e | | | 20cm; [id number] Nasal | | | 14 | | | | | Pillows; [id number] [...] | 11/28/2013; | | | | | | + + + +---------+------+------+-------+ | Uncoded Medication | Convert CPAP to | 1 | 0 | 04/0 | | Activ | | | purchase for NARESH | Device | | 8/20 | | e | | | (327.23) | | | 14 | | | + + + +---------+------+------+-------+ | nitroglycerin | Place 1 tablet under | 25 | | 09/2 | | Activ | | (NITROSTAT) 0.4 mg | the tongue every 5 | tablet | | 6/20 | | e | | SL tablet | minutes as needed | | | 19 | | | | | for Chest pain. | | | | | | + + + +---------+------+------+-------+ | Inulin (FIBER | Take by mouth. | | 0 | 06/0 | | Activ | | CHOICE FRUITY BITES | | | | 3/20 | | e | | PO) | | | | 19 | | | + + + +---------+------+------+-------+ | Insulin Degludec | Inject into the | | 0 | 06/0 | | Activ | | (TRESIBA FLEXTOUCH | skin. | | | 3/20 | | e | | SC) | | | | 19 | | | + + + +---------+------+------+-------+ | metFORMIN | Take 1,000 mg by | | 0 | 06/0 | | Activ | | (GLUCOPHAGE) 1000 MG | mouth 2 (two) times | | | 3/20 | | e | | tablet | daily with meals. | | | 19 | | | + + + +---------+------+------+-------+ | dapagliflozin | Take 10 mg by mouth | | 0 | 06/0 | | Activ | | (FARXIGA) 10 mg | every morning. | | | 3/20 | | e | | tablet | | | | 19 | | | + + + +---------+------+------+-------+ | levothyroxine | Take 100 mcg by | | 0 | 06/0 | | Activ | | (SYNTHROID) 100 mcg | mouth every morning | | | 3/20 | | e | | tablet | before breakfast. | | | 19 | | | + + + +---------+------+------+-------+ | ergocalciferol | Take 50,000 Units by | | 0 | 06/0 | | Activ | | (VITAMIN D-2) 50,000 | mouth once a week. | | | 3/20 | | e | | units capsule | | | | 19 | | | + + + +---------+------+------+-------+ | cyanocobalamin | Take 2,500 mcg by | | 0 | 06/0 | | Activ | | (VITAMIN B-12) 2000 | mouth daily. | | | 3/20 | | e | | MCG TABS | | | | 19 | | | + + + +---------+------+------+-------+ | insulin glulisine | Inject into the | | 0 | 06/1 | | Activ | | (APIDRA SOLOSTAR) | skin 3 (three) times | | | 3/20 | | e | | 100 units/mL | daily before meals. | | | 19 | | | | injection pen | | | | | | | + + + +---------+------+------+-------+ | prasugrel | Take 1 tablet by | 90 | 3 | 10/0 | | Activ | | (EFFIENT) 10 mg TABS | mouth Daily. | tablet | | 8/20 | | e | | | | | | 19 | | | + + + +---------+------+------+-------+ | traMADol (ULTRAM) | Take 100 mg by mouth | | 0 | | | Activ | | 50 mg tablet | 2 times daily. | | | | | e | + + + +---------+------+------+-------+ | isosorbide | Take 1 tablet by | 30 | 11 | 11/0 | 11/0 | Activ | | mononitrate (IMDUR) | mouth nightly. | tablet | | 7/20 | 6/20 | e | | 30 mg ER tablet | | | | 19 | 20 | | + + + +---------+------+------+-------+ | omeprazole | Take 20 mg by mouth | | 0 | | | Activ | | (PRILOSEC) 20 mg | Twice a week. | | | | | e | | capsule | | | | | | | + + + +---------+------+------+-------+ | ferrous sulfate | Take 325 mg by mouth | | 0 | | | Activ | | 325 mg tablet | daily (with | | | | | e | | | breakfast). | | | | | | + + + +---------+------+------+-------+ | candesartan | Take 4 mg by mouth | | 0 | | | Activ | | (ATACAND) 4 mg | Daily. | | | | | e | | tablet | | | | | | | + + + +---------+------+------+-------+ | aspirin 81 mg EC | Take 81 mg by mouth | | 0 | | | Activ | | tablet | Daily. | | | | | e | + + + +---------+------+------+-------+ | metoprolol | Take 3 tablets by | 90 | 11 | 12/1 | | Activ | | succinate | mouth Daily. Take | tablet | | 2/20 | | e | | (TOPROL-XL) 50 mg 24 | 100 mg with | | | 19 | | | | hr tablet | breakfast and 50 mg | | | | | | | | with dinner | | | | | | + + + +---------+------+------+-------+ | atorvaSTATin | Take 1 tablet by | 90 | 3 | 121 | | Activ | | (LIPITOR) 80 MG | mouth nightly. | tablet | | 3/20 | | e | | tablet | | | | 19 | | | + + + +---------+------+------+-------+ | metoprolol | Take 100 mg by mouth | | 0 | 06/0 | 09/29 | Disco | | succinate | daily. | | | 3 | 2/20 | ntinu | | (TOPROL-XL) 100 mg | | | | 19 | 19 | ed | | ER tablet | | | | | | (Reor | | | | | | | | himanshu) | + + + +---------+------+------+-------+ | aspirin 81 mg | Take 81 mg by mouth | | 0 | 06/1 | 12/ | Disco | | chewable tablet | daily with | | | 3/20 | 2/20 | ntinu | | | breakfast. | | | 19 | 19 | ed | | | | | | | | (Ther | | | | | | | | apy | | | | | | | | compl | | | | | | | | eted) | + + + +---------+------+------+-------+ | atorvaSTATin | Take 1 tablet by | 30 | 11 | 11/0 | 12/1 | Disco | | (LIPITOR) 40 mg | mouth nightly. | tablet | | 7/20 | 2/20 | ntinu | | tablet | | | | 19 | 19 | ed | | | | | | | | (Reor | | | | | | | | himanshu) | + + + +---------+------+------+-------+ | atorvaSTATin | Take 0.5 tablets by | 90 | 3 | 12/1 | 12/1 | Disco | | (LIPITOR) 80 MG | mouth nightly. | tablet | | 2/20 | 3/20 | ntinu | | tablet | | | | 19 | 19 | ed | | | | | | | | (Reor | | | | | | | | himanshu) | + + + +---------+------+------+-------+ Active Problems + + + | Problem | Noted Date | + + + | Presence of drug-eluting stent in anterior descending branch of | 10/10/2019 | | left coronary artery | | + + + | Coronary artery disease involving [place] coronary artery of | 09/05/2019 | | [place] heart with angina pectoris | | + + + + + | Overview: Angiogram/PCI: 08/05/2019:( Dr. Elizabeth/Nayeli) : | | Severe two-vessel coronary artery disease involving the mid | | distal RCA and mid LAD. | + + + + + | Dyslipidemia | 09/05/2019 | + + + | S/P PTCA (percutaneous transluminal coronary angioplasty) | 09/05/2019 | + + + | Presence of drug-eluting stent in right coronary artery | 09/05/2019 | + + + + + | Overview: 08/05/2019: Successful angioplasty for the RCA with | | 2 overlapping drug-eluting stents, synergy 3.0 x 38 mm and | | synergy 3.5 x 38 mm. | + + + + + | Bilateral carotid artery stenosis | 09/05/2019 | + + + + + | Overview: Carotid ultrasound: 05/15/2019: Less than 50% | | stenosis to right common and cervical ICA, greater than 70% | | stenosis to left ICA, normal antegrade flow to bilateral | | vertebral arteries. | + + + + + | Stage 3 chronic kidney disease | 09/05/2019 | + + + | Diabetic neuropathy | 09/05/2019 | + + + | Abnormal stress test | 07/29/2019 | + + + + + | Overview: Added automatically from request for surgery | | [id number] | + + + + + | Hearing loss | 08/15/2013 | + + + | Vitamin D deficiency | 09/25/2012 | + + + | Vertigo | 12/27/2011 | + + + | Asthma | 11/15/2011 | + + + | Hip pain | 10/13/2011 | + + + | Fatigue | 08/22/2011 | + + + | Sleep apnea with use of continuous positive airway pressure | | | (CPAP) | | + + + | Restless legs syndrome (RLS) | | + + + | Obesity | | + + + | Hypertension goal BP (blood pressure) < 130/80 | | + + + | Poorly controlled type 2 diabetes mellitus | | + + + | Hypothyroidism | | + + + | Hypnagogic hallucinations | | + + + | REM sleep behavior disorder | | + + + | Depression | | + + + | Organic insomnia | | + + + Resolved Problems + + + + | Problem | Noted | Resolved | | | Date | Date | + + + + | Statin intolerance | 09/05/20 | | | | 19 | 9 | + + + + Encounters +--------+ + + + + | Date | Type | Specialty | Care Team | Description | +--------+ + + + + | 10/16/ | Orders Only | Nephrology | Fermín Muse MD | Hypertension goal BP | | 2019 | | | | (blood pressure) < | | | | | | 130/80 (Primary Dx); | | | | | | Stage 3 chronic | | | | | | kidney disease (HCC) | +--------+ + + + + | 10/10/ | Office | Cardiology | Elliott Ashlyn | Coronary artery | | 2019 | Visit | | [facility] | disease involving | | | | | | [place] coronary | | | | | | artery of [place] | | | | | | heart with angina | | | | | | pectoris (HCC) | | | | | | (Primary Dx); S/P | | [...] | | | | | | mellitus ([facility]); | | | | | | Bilateral carotid | | | | | | artery stenosis; | | | | | | Stage 3 chronic | | | | | | kidney disease (HCC) | +--------+ + + + + | 09/09/ | Surgery | Radiology | Fermín Tyler MD | CV STENT | | 2019 | | | | | +--------+ + + + + | 09/09/ | Hospital | Internal Medicine | Fermín Tyler MD | S/P drug eluting | | 2019 | Encounter | | | coronary stent | | | | | | placement (Primary | | | | | | Dx); Coronary artery | | | | | | disease involving | | | | | | [place] coronary | | | | | | artery of [place] | | | | | | heart with angina | | | | | | pectoris ([facility]); S/P | | | | | | [...] | | | | | | mellitus ([facility]); | | | | | | Bilateral carotid | | | | | | artery stenosis; | | | | | | Stage 3 chronic | | | | | | kidney disease ([facility]) | +--------+ + + + + | 09/05/ | Office | Cardiology | Ashlyn Gallagher | Coronary artery | | 2018 | Visit | | [facility] | disease involving | | | | | | [place] coronary | | | | | | artery of [place] | | | | | | heart with angina | | | | | | pectoris ([facility]); S/P | | | | | | [...] | | | | | | mellitus ([facility]); | | | | | | Bilateral carotid | | | | | | artery stenosis; | | | | | | Stage 3 chronic | | | | | | kidney disease ([facility]) | +--------+ + + + + | 08/27/ | Telephone | Vascular Surgery | Maryann Fuller, | Imaging | | 2018 | | | RN | | +--------+ + + + + | 08/21/ | Office | Vascular Surgery | Jacinto Tierney MD | Carotid stenosis, | | 2018 | Visit | | | bilateral (Primary | | | | | | Dx) | +--------+ + + + + | 08/05/ | Surgery | Radiology | Ama Elizabeth DO | CV COR ANGIO | | 2018 | | | | | +--------+ + + + + | 08/05/ | Hospital | Internal Medicine | Ama Elizabeth DO | Abnormal stress | | 2018 - | Encounter | | | test; Abnormal | | | | | | stress test | | 08/06/ | | | | | | 2018 | | | | | +--------+ + + + + | 08/02/ | Telephone | Radiology | Ama Elizabeth DO | | | 2018 | | | | | +--------+ + + + + | 07/26/ | Telephone | Cardiology | Betty Abdi | Results (Carotid US | | 2019 | | | D, Crisis Counselor | ) | +--------+ + + + + | 07/25/ | Office | Cardiology | Ama Elizabeth DO | Abnormal stress test | | 2019 | Visit | | | (Primary Dx); | | | | | | Stenosis of left | | | | | | carotid artery; | | | | | | Hypertension, | | | | | | unspecified type; | | | | | | Obesity, unspecified | | | | | | classification, | | | | | | unspecified obesity | | | | | | type, unspecified | | | | | | whether serious | | | | | | comorbidity present; | | | | | | Uncontrolled type 2 | | | | | | diabetes mellitus | | | | | | with hyperglycemia | | | | | | (HCC) | +--------+ + + + + from Last 3 Months Family History + + +------+ + | Medical History | Relation | Name | Comments | + + +------+ + | Diabetes | Father | | | + + +------+ + | Diabetes, IDDM | Father | | | + + +------+ + | Diabetes, NIDDM | Mother | | | + + +------+ + | Heart attack | Mother | | | + + +------+ + | Heart disease | Mother | | | + + +------+ + | High blood pressure | Mother | | | + + +------+ + | High cholesterol | Mother | | | + + +------+ + | Hypertension | Mother | | | + + +------+ + | Sleep apnea | Mother | | | + + +------+ + + +------+ + + | Relation | Name | Status | Comments | + +------+ + + | Brother | | | Lung Cancer | | | | (Age | | | | | 44) | | + +------+ + + | Daughter | | Alive | | + +------+ + + | Father | | | diabetes, snore | | | | (Age | | | | | 42) | | + +------+ + + | Mother | | Alive | | + +------+ + + | Sister | | Alive | | + +------+ + + | Son | | Alive | | + +------+ + + | Son | | Alive | | + +------+ + + Social History + + + [...] recent travel history available. | + + Last Filed Vital Signs + [...] | | + + + + + Plan of Treatment +--------+---------+ + + + | Date | Type | Specialty | Care Team | Description | +--------+---------+ + + + | 11/06/ | Office | Vascular Surgery | Jacinto Tierney MD | | | 2020 | Visit | | [address] | | | | | | [address] [facility] | | | | | | [place] [address] | | | | | | [phone] | | | | | | | | +--------+---------+ + + + | 11/18/ | Office | Nephrology | Fermín Muse MD | | | 2019 | Visit | | [address] | | | | | | [address] [place] | | | | | | [address] | | | | | | | | +--------+---------+ + + + | 12/26/ | Office | Cardiology | Ashlyn Gallagher | | | 2019 | Visit | | [address] | | | | | [address] | | | | | | [place] [address] | | | | | | [phone] | | | | | | | | +--------+---------+ + + + + + + + + | Health Maintenance | Due Date | Last Done | Comments | + + + + + | Vaccine: | | | | | Pneumococcal 19-64 | 3 | | | | (1 of 1 - PPSV23) | | | | + + + + + | Diabetic Eye Exam | | | | | | 5 | | | + + + + + | Diabetic Foot Exam | | | | | | 5 | | | + + + + + | Vaccine: | | 07/30/1996, 07/19/1971, | | | Dtap/Tdap/Td (4 - | 6 | 05/17/1971, Additional history | | | Tdap) | | exists | | + + + + + | Cervical Cancer | | | | | Screening (Pap) | 7 | | | + + + + + | Breast Cancer | | | | | Screening | 2 | | | + + + + + | Hemoglobin A1c | | 11/21/2013 | | | Screening | 4 | | | + + + + + | Colorectal Cancer | | | | | Screening | 7 | | | | (Colonoscopy) | | | | + + + + + | Vaccine: Zoster (1 | | | | | of 2) | 7 | | | + + + + + | Vaccine: Influenza | | 07/29/2016, 07/29/2016 | | | (#1) | 9 | | | + + + + + Implants + +-------+------+ +--------+--------+--------+ | Implanted | Type | Area | Manufacture | Device | Shelf | Model | | | | | r | | Expira | / | | | | | | Identi | tion | Serial | | | | | | fier | Date | / Lot | + +-------+------+ +--------+--------+--------+ | Stent Gui Synergy Mr 2.5 X 16 | Stent | | [place] | | | [id number] | | - [id number]: Qty: | | | SCIENTIFIC | | | [id number] | | 1 on 09/09/2019 by Nayeli, | | | LUL - BSCI | | | 50 / / | | MD Fermín at [facility] | | | | | | | | [facility] | | | | | | | + +-------+------+ +--------+--------+--------+ | Stent Reslt Christian Rx 2.0x22 - | | | MEDTRONIC - | | | RONYX2 | | [id number]: Qty: 1 | | | MEDT | | | [id number] | | on 09/09/2019 by Nayeli, | | | | | | / / | | MD Fermín at [facility] | | | | | | | | [facility] | | | | | | | + +-------+------+ +--------+--------+--------+ Procedures + +--------+ + + + | [...] the | | | | PST | [place] coronary | results section. | | | | | artery of [place] | | | | | | heart [...] | | | | | | mellitus ([facility]) | | | | | | Bilateral carotid | | | | | | artery stenosis | | | | | | Stage 3 chronic | | | | | | kidney disease ([facility]) | | + +--------+ + + + | CV CARDIAC PROCEDURE | Routin | 09/09/2019 | Coronary artery | Results for this | | | e | 11:44 AM | disease involving | procedure are in the | | | | PST | [place] coronary | results section. | | | | | artery of [place] | | | | | | heart [...] | | | | | | mellitus (HCC) | | | | | | Bilateral carotid | | | | | | artery stenosis | | | | | | Stage 3 chronic | | | | | | kidney disease ([facility]) | | + +--------+ + + + | CV CARDIAC PROCEDURE | Routin | 09/09/2019 | Coronary artery | Results for this | | | e | 11:44 AM | disease involving | procedure are in the | | | | PST | [place] coronary | results section. | | | | | artery of [place] | | | | | | heart with angina | | | | | | pectoris ([facility]) S/P | | | | | | [...] | | | | | | mellitus (HCC) | | | | | | Bilateral [...] | + +--------+ + + + | LABS - EXTERNAL SCAN | | 09/06/2019 | | Results for this | | | | 12:00 AM | | procedure are in the | | | | PST | | results section. | + +--------+ + + + | ECG 12 LEAD | Routin | 09/05/2019 | Coronary artery | Results for this | | | e | 2:17 PM | disease involving | procedure are in the | | | | PST | [place] coronary | results section. | | | | | artery of [place] | | | | | | heart with angina | | | | | | pectoris ([facility]) S/P | | | | | | [...] | | | | | | mellitus ([facility]) | | | | | | Bilateral [...] section. | + +--------+ + + + from Last 3 Months Results ECG 12 lead (10/10/2019 2:20 PM PST)Only the most recent of 2 results within the time talat od is included. + + + + + + | [...] INTERPRETAT | Please refer to | | [facility] MUSE | | | ION TEXT | Providers office visit | | | | | | note for Providers | | | | | | Interpretation.Confirmed | | | | | | by ICA Kittery Read Only, | | | | | | ICA Mckenna ([id number]), | | | | | | material expeditor Tony Alexandre | | | | | | ([id number]) on 10/10/2019 | | | | | [...] | | | + +---------+ + + CV CARDIAC PROCEDURE (09/09/2019 11:44 AM [facility])Only the most recent of 3 results within the time period is included. + + | Specimen | + + [...] coronary artery with stent | | | (39691 LD) Conscious sedation (physician supervision) for 30 total | | | minutes - ([phone] + 0 ([id number]) Procedure Summary Access site: right | | [...] --+ Activated clotting time (09/09/2019 11:30 AM [facility])Only the most recent of 4 results within t he time period is included. + + + + + + | Component | Value | Ref Range | Performed | Pathologist | | | | | At | Signature | + + + + + + | Activated | 213 (H)Comment: Testing | 74 - 137 | K[facility] | | | Clotting | performed at [facility];[address] | seconds | LABORATORY | | | Time, POC | [address];[place] | | | | | | [address] | | | | + + + + + + + + | Specimen | + + | | + + + + + + + | Performing | Address | City/State/Zipcode | Phone Number | | Organization | | | | + + + + + | [facility] | [address] | [place] [address] | [phone] | + + + + + CBC no Differential (09/09/2019 9:48 AM PST)Only the most recent of 2 results within the period is included. + + + + + + | [...] [facility] | | | | performed at [facility];[address] | | LABORATORY | | | | [address];[place], [place] | | | | | | [address] | | | | + + + + + + + + | Specimen | + + | Blood | + + + + + + + | Performing | Address | City/State/Zipcode | Phone Number | | Organization | | | | + + + + + | [facility] | [address] | [place] [address] | [phone] | + + + + + Basic Metabolic Panel (09/09/2019 9:48 AM PST)Only the most recent of 3 results within the time period is included. + + + + + + | [...] (L)Comment: GFR <60: | >60 | [facility] | | | GFR | CHRONIC KIDNEY [...] | | | | | | MDRD [facility] traceable | | | | | | equation.Testing | | | | | | performed at [facility];[address] | | | | | | [facility];[place], [place] | | | | | | [address] | | | | + + + + + + + + | Specimen | + + | Blood | + + + + + + + | Performing | Address | City/State/Zipcode | Phone Number | | Organization | | | | + + + + + | [facility] | [address] | [place] [address] | [phone] | + + + + + POC Glucose (09/09/2019 9:42 AM PST)Only the most recent of 4 results within the time talat od is included. + + + + + + | Component | Value | Ref Range | Performed | Pathologist | | | | | At | Signature | + + + + + + | Glucose, | 68Comment: Testing | 65 - 99 mg/dL | [facility] | | | POC | performed at [facility];[address] | | LABORATORY | | | | [address];[place] | | | | | | [address] | | | | + + + + + + + + | Specimen | + + | | + + + + + + + | Performing | Address | City/State/Zipcode | Phone Number | | Organization | | | | + + + + + | [facility] | [address] | [place] [address] | [phone] | + + + + + LABS - EXTERNAL SCAN (09/06/2019 12:00 AM PST) + + + | Narrative | Performed At | + + + | Ordered by an | | | unspecified provider. | | + + + CK Total (08/06/2019 5:30 AM PDT) + + + + + + | Component | Value | Ref Range | Performed | Pathologist | | | | | At | Signature | + + + + + + | CK TOTAL | 157Comment: Testing | 30 - 240 U/L | [facility] | | | | performed at [facility];[address] | | LABORATORY | | | | [address];[place] | | | | | | [address] | | | | + + + + + + + + | Specimen | + + | Blood | + + + + + + + | Performing | Address | City/State/Zipcode | Phone Number | | Organization | | | | + + + + + | [facility] | [address] | [place] [address] | [phone] | + + + + + PTT (08/05/2019 8:19 AM PDT) + + + + + + | Component | Value | Ref Range | Performed | Pathologist | | | | | At | Signature | + + + + + + | PTT | 28Comment: Testing | 23 - 32 seconds | K[facility] | | | | performed at [facility];[address] | | LABORATORY | | | | [address];[place] | | | | | | [address] | | | | + + + + + + + + | Specimen | + + | Blood | + + + + + + + | Performing | Address | City/State/Zipcode | Phone Number | | Organization | | | | + + + + + | [facility] | [address] | [place] [address] | [phone] | + + + + + Protime INR (08/05/2019 8:19 AM PDT) + + + + + + | Component | Value | Ref Range | Performed | Pathologist | | | | | At | Signature | + + + + + + | INR | 0.9Comment: REFERENCE | | [facility] | | | | RANGE:0.9 - 1.2 [...] | | | | | performed at [facility] | | | | | | [facility];[place], [place] | | | | | | [address] | | | | + + + + + + + + | Specimen | + + | Blood | + + + + + + + | Performing | Address | City/State/Zipcode | Phone Number | | Organization | | | | + + + + + | [facility] | [address] | [place] [address] | [phone] | + + + + + CBC [...] | | | Absolute | performed at [facility];[address] | [address] | LABORATORY | | | | [address];[place] | | | | | | [address] | | | | + + + + + + + + | Specimen | + + | Blood | + + + + + + + | Performing | Address | City/State/Zipcode | Phone Number | | Organization | | | | + + + + + | [facility] | [address] | [place] [address] | [phone] | + + + + + from Last 3 Months Insurance +-------+--------+ +--------+-------+---------+------+ | Payer | Benefi | Subscriber | Effect | Phone | Address | Type | | | t Plan | ID | ermelinda | | | | | | / | | Dates | | | | | | Group | | | | | | +-------+--------+ +--------+-------+---------+------+ | BCBS | BCBS | [id number] | 10/30/19 | | | PPO | | | [place] | W01 | 14-Pre | | | | | | PPO | | sent | | | | +-------+--------+ +--------+-------+---------+------+ | BCBS | BCBS | [id number] | 10/30/19 | | | PPO | | | [place] | W01 | 15-Pre | | | | | | PPO | | sent | | | | +-------+--------+ +--------+-------+---------+------+ + +--------+ +--------+ + + | Guarantor Name | Accoun | Relation to | Date | Phone | Billing Address | | | t Type | Patient | of | | | | | | | | | | + +--------+ +--------+ + + | Deshawn Simms | Person | Self | [birth year] | [address] [facility] [address] | | [place] | al/[place] | | 1965 | [phone] | [address] [facility] [place] | | | [place] | | | [address] (Home) | [phone] | + +--------+ +--------+ + + | Adarsh Simmsvanessa | Person | Self | 05/01/ | | [address] | | [place] | [place] | | 1965 | [phone] | [place] | | | [place] | | | 3 (Home) | [address] | + +--------+ +--------+ + + Advance Directives + + + + + | Type | Date Recorded | Patient | Explanation | | | | Applications Engineer | | + + + + + | Power of | | | | | Wind Site Manager | | | | + + + + + | Advance | 09/09/2019 | | | | Directive | 9:16 AM | | | + + + + +
--- OUTSIDE RECORDS SUMMARY | ~2019-10-17 | XMS | Encounter Summary ---
Demographics + + + | Address | [address] | | | [place] [address] | + + + | Home Phone | | + + + | Preferred Language | Unknown | + + + | Marital Status | | + + + | Church Affiliation | Unknown | + + + | Race | Unknown | + + + | Ethnic Group | Unknown | + + + Author + + + | Author | [facility] | | | and [place] | + + + | Organization | [facility] | | | and [place] | + + + | Address | Unknown | + + + | Phone | Unavailable | + + + Support + + + + + | Name | Relationship | Address | Phone | + + + + + | Deonte Simms V | ECON | [address] | | | | | [place] | | | | | [address] | | + + + + + Care Team Providers + +------+ + | Care Meal Attendant Name | Role | Phone | + +------+ + | Nikos Crane | PCP | | | MD | | | + +------+ + Reason for Referral Diagnostic/Screening (Routine) + +--------+ + + + + | Status | Reason | Specialty | Diagnoses / | Referred By | Referred To | | | | | Procedures | Contact | Contact | + +--------+ + + + + | Authorized | | Diagnostic | Diagnoses | Niall, | | | | | Radiology | Carotid | MD Jacinto | | | | | | stenosis, | [address] | | | | | | bilateral | [address] | | | | | | Bilateral | [address] | | | | | | Carotid | [place] | | | | | | Stenosis | [place] | | | | | | Procedures | [address] | | | | | | CT Angiogram | Phone: | | | | | | Head Neck w | [phone] | | | | | | Contrast | Fax: | | | | | | ID CT | [phone] | | | | | | ANGIO,HEAD | | | | | | | COMBO,INCL | | | | | | | IMAGE | | | | | | | PROCESS ID | | | | | | | CT | | | | | | | ANGIO,NECK | | | | | | | COMBO,INCL | | | | | | | IMAGE | | | | | | | PROCESS Ct | | | | | | | Angiogram | | | | | | | Head Neck W | | | | | | | Contrast | | | + +--------+ + + + + Reason for Visit Evaluate & Treat (Routine) + + + + + + + | Status | Reason | Specialty | Diagnoses / | Referred By | Referred To | | | | | Procedures | Contact | Contact | + + + + + + + | Authorized | Specialty | Vascular | Diagnoses | Clara, | [facility] | | | Services | Surgery | Stenosis of | DO Ama | Surgery | | | Required | | left | [address] | [address] | | | | | carotid | [address] | [address] | | | | | artery | [address] [address] | [place], [place] | | | | | | [place], [place] | [address] | | | | | | [address] | Phone: | | | | | | Phone: | [phone] | | | | | | [phone] | Fax: | | | | | | Fax: | [phone] | | | | | | [phone] | | + + + + + + + Encounter Details +--------+---------+ + + + | Date | Type | Department | Care Team | Description | +--------+---------+ + + + | 08/21/ | Office | [facility] | Jacinto Tierney MD | Carotid stenosis, | | 2019 | Visit | VASCULAR SURGERY | [address] | bilateral (Primary | | | | [address] | [address] [place] | Dx) | | | | E [place], [place] | [place] [address] | | | | | [address] | [phone] | | | | | [phone] | | | +--------+---------+ + + + [...] this encounter Last Filed Vital Signs + +---------+ + + | Vital Sign | Reading | Time Taken | Comments | + +---------+ + + | Blood Pressure | 182/87 | 08/21/2019 8:28 AM | | | | | PDT | | + +---------+ + + | Pulse | 82 | 08/21/2019 8:26 AM | | | | | PDT | | + +---------+ + + | Temperature | - | - | | + +---------+ + + | Respiratory Rate | - | - | | + +---------+ + + | Oxygen Saturation | 95% | 08/21/2019 8:26 AM | | | | | PDT | | + +---------+ + + | Inhaled Oxygen | - | - | | | Concentration | | | | + +---------+ + + | Weight | - | - | | + +---------+ + + | Height | - | - | | + +---------+ + + | Body Mass Index | - | - | | + +---------+ + + documented in this encounter Patient Instructions Patient Instructions Jacinto Tierney MD - 08/21/2019 8:30 AM PDTFormatting of this note migh t be different from the original. Carotid Artery Problems: Stroke Small pieces of a blood clot called emboli break off and can enter the bloodstream and ly el to the brain. Brain tissue is damaged when emboli block arteries in the brain. The carotid arteries are large blood vessels that carry blood to the brain. When these devin talha are healthy, the brain gets all the oxygen and nutrients it needs to function well. But if the carotid arteries are damaged, this can greatly increase your risk of a stroke. A str dionicio is a sudden loss of brain function caused by a lack of blood flow and oxygen. How artery damage can lead to a stroke A healthy carotid artery is smooth on the inside, like a tube. But health problems such as high blood pressure, diabetes, and smoking can damage the inside of the artery wall and make it rough. This lets fatty deposits called plaque build up on the artery wall. Blood clots c alled emboli may also form on the plaque. If pieces of plaque or emboli break off, they can flow in the blood and get stuck in a small blood vessel in the brain. This blocks the blood flow to a part of the brain, and causes a stroke. Symptoms of a stroke Below are common symptoms of a stroke.Call 911 right awayif you have any of these sympt oms. Fast medical treatment for a stroke is vital. The longer you wait to get help, the more damage a stroke can do. Sudden numbness or weakness of the face, arm, or leg, especially on one side of the body Sudden confusion or trouble speaking or understanding other people Sudden trouble seeing in 1 or both eyes Sudden trouble walking, dizziness, or loss of balance or coordination Sudden, severe headache with no known cause Sudden new seizures Transient ischemic attack (TIA) A transient ischemic attack (TIA) is a mini-stroke. It s a warning sign that a larger str dionicio may happen in the near future. A TIA is when an artery to the brain is blocked for a gaurang ef time. This will cause symptoms just like those that happen with a stroke. But with a TIA, they last a short period of time, from a few seconds to a few hours. Never ignore any TIA o r stroke symptoms.Call 911 right away. F.A.S.T. F.A.S.T. is an easy way to remember the signs of a stroke or TIA. When you see these signs, call 911 fast. F.A.S.T. stands for: F is for face drooping. One side of the face is drooping or numb. When the person smiles , the smile is uneven. A is for arm weakness. One arm is weak or numb. When the person lifts both arms at the s fahad time, one arm may drift downward. S is for speech difficulty. You may notice slurred speech or trouble speaking. The perso n can't repeat a simple sentence correctly when asked. T is for time to call 911. If someone shows any of these symptoms, even if the symptoms go away, call 911 right away. Make note of the time the symptoms first appeared. Date Last Reviewed: 11/30/201719997922-2257 [employer]. [address] [place] [address]. All righ ts reserved. This information is not intended as a substitute for professional medical care. Always follow your healthcare professional's instructions. documented in this encounter Progress Notes Jacinto Tienrey MD - 08/21/2019 8:30 AM PDTFormatting of this note might be different from t he original. [facility] [address] [place] [address] Office: [phone] DATE OF VISIT: 08/21/2019 PATIENT NAME: Deshawn Simsm : 1965; AGE: 54 y.o.; Sex:F PHONE NUMBER: ; (Work); ; PHYSICIAN: Jacinto Tierney MD PRIMARY CARE / REFERRING PHYSICIAN: Ama Elizabeth DO / Nikos Crane MD / [address] / [place] [address] / REASON FOR EVALUATION / CHIEF COMPLAINT: Evaluation and Treatment of Carotid Arter y Occlusive Disease HISTORY OF PRESENT ILLNESS:Deshawn Simms is a 54 y.o. female patient who was r ecently diagnosed with bilateral carotid artery occlusive disease which has been asymptomati c from neurological stand point. The patient currently reports no numbness in the upper or lower extremities, and no motor or sensory deficits. The patient reports no difficulty in co gnitive ability, slurred speech, or impaired verbal communication capability. The patient's risk factors for atherosclerotic occlusive disease include: carotid stenosis, diabetes melli tus and smoking. A recent carotid duplex ultrasound demonstrated mild right-sided and severe left-sided carotid artery occlusive disease. The patient was referred for a vascular surger y consultation for evaluation and treatment of carotid artery occlusive disease. Recent cardiac cath which showed RCA and LAD disease. Two stents placed in RCA on 08/05. P er notes plan for further intervention on LAD. PAST SURGICAL HISTORY: The patient's has a past surgical history that includes Cholecystec arpit (2000); coccygeal cyst (1995); section, classic (2000); section; othe r surgical history; Cholecystectomy; Cardiac catheterization (N/A, 08/05/2019); and Cardiac c atheterization (N/A, 08/05/2019). PAST MEDICAL HISTORY: The patient has a past medical history of Acute bronchitis, Arthralg ia, Chronic pain syndrome, Depression, Diabetes type 2, uncontrolled (HCC), Esophagitis, Exe rtional angina (HCC), Fibromyalgia, HBP (high blood pressure), HTN (hypertension), Hyperlipi demia, Hyperlipoproteinemia, Hypnagogic hallucinations, Hypothyroidism, Obesity, Organic ins omnia, Peripheral neuropathy, REM sleep behavior disorder, Restless legs syndrome (RLS), Sle ep apnea, Snoring, and Type 2 diabetes mellitus (HCC). FAMILY HISTORY: The patient's family history includes Diabetes in her father; Diabetes, IDD M in her father; Diabetes, NIDDM in her mother; Heart attack in her mother; Heart disease in her mother; High blood pressure in her mother; High cholesterol in her mother; Hypertension in her mother; Sleep apnea in her mother. CURRENT MEDICATIONS: Current Outpatient Medications Medication Sig Dispense Refill aspirin 81 mg chewable tablet Take 81 mg by mouth daily with breakfast. Cholecalciferol (VITAMIN D PO) Take 50,000 Units by mouth Three times a week. cyanocobalamin (VITAMIN B-12) 2000 MCG TABS Take 2,500 mcg by mouth daily. dapagliflozin (FARXIGA) 10 mg tablet Take 10 mg by mouth every morning. ergocalciferol (VITAMIN D-2) 50,000 units capsule Take 50,000 Units by mouth once a wee k. Insulin Degludec (TRESIBA FLEXTOUCH SC) Inject into the skin. insulin glulisine (APIDRA SOLOSTAR) 100 units/mL injection pen Inject into the skin 3 (three) times daily before meals. Inulin (FIBER CHOICE FRUITY BITES PO) Take by mouth. levothyroxine (SYNTHROID) 100 mcg tablet Take 100 mcg by mouth every morning before judith akfast. (Patient taking differently: Take 100 mcg by mouth 3 times daily.) metFORMIN (GLUCOPHAGE) 1000 MG tablet Take 1,000 mg by mouth 2 (two) times daily with m eals. metoprolol succinate (TOPROL-XL) 100 mg ER tablet Take 100 mg by mouth daily. nitroglycerin (NITROSTAT) 0.[address] 1 tablet under the tongue every 5 darrius amanda as needed for Chest pain. 25 tablet prn prasugrel (EFFIENT) 10 mg TABS Take 1 tablet by mouth Daily. 90 tablet 3 Uncoded Medication Convert CPAP to purchase for NARESH (327.23) 1 Device 0 UNCODED MEDICATION E0601 CPAP RES MED S9- MIN 5 cm MAX 20cm; A7033 Nasal Pillows; A7032 Nasal Mask; A7030 Full Face Mask; E0562 Heated Humidifier; A7037 Heated Tubing; A7034 Cushions; A7036 Chinstrap; A7039 / A7038 Filters; AHI 44.1; Date of Most Recent Polysomnogram: 11/28/2013; 1 Device 0 No current facility-administered medications for this visit. Allergies Allergen Reactions Augmentin [Amoxicillin-Pot Clavulanate] Other (See Comments) THRUSH ON THE TONGUE Penicillins Rash Rash SOCIAL HISTORY: reports that she quit smoking about 7 years ago. Her smoking use included cigarettes. She has a 20.00 pack-year smoking history. She has never used smokeless tobacco. She reports that she does not drink alcohol or use drugs. REVIEW OF SYSTEMS: General: negative for - night sweats, sleep disturbance, weight gain or weight loss Psychological: negative for - anxiety, memory difficulties, mood swings or sleep disturbanc es Ophthalmic: negative for - decreased vision, double vision or loss of vision ENT: negative for - headaches, nasal congestion, oral lesions, sinus pain, visual changes, earache, ear discharge, or tinnitus. Neck: negative for - neck pain, neck stiffness, swollen gland, or thyroid enlargement. Endocrine: negative for - Malaise/lethargy, polyurea Breast: negative for - galactorrhea, nipple changes or nipple discharge, Respiratory: no cough, shortness of breath, wheezing, dyspnea, sputum production, or hemoptysis. Cardiovascular: no chest pain, orthopnea, heart murmur, or dyspnea on exertion Gastrointestinal: no abdominal pain, change in bowel habits, jaundice, constipation, or madina ck or bloody stools Genito-Urinary: no dysuria, trouble voiding, or hematuria Musculoskeletal: negative for - joint stiffness, joint swelling or bone pain Neurological: negative for - behavioral changes, headaches, impaired coordination, loss of balance, tingling sensation, dizziness, seizure, memory loss or weakness Dermatological: negative for - mole changes, nail changes, skin lesion changes, or skin discoloration. Hematological and Lymphatic: negative for - bleeding problems, blood clots, bruising, fatig ue, swollen lymph nodes or history of anemia. Endocrine: negative for thyroid disease, heat or cold intolerance, polyuria, or polydipsia Psychiatric: negative for depression, sleep disturbance, suicidal ideation, anxiety disorder, or history of hallucinations VITAL SIGNS: BP 182/87 | Pulse 82 | LMP 11/30/2012 | SpO2 95% PHYSICAL EXAM: Constitutional: Well nourished, no signs of distress HENT: Normocephalic and atraumatic. Cranial nerves II-XI are grossly intact. Lymphadenopathy: She has no cervical, supraclavicular adenopathy Cardiovascular: Normal rate, regular rhythm Pulmonary/Chest: Unlabored at rest Abdominal: non-tender, soft Musculoskeletal: Normal range of motion. Extremities: No edema Neurological: She is alert and oriented. normal gait. VASCULAR: carotid pulse bilaterally. Left carotid bruit IMAGINGS: Carotid Duplex Ultrasound Evaluation:Carotid duplex ultrasound demonstrated 50-69% stenosis on Right internal carotid artery, and >70% Left internal carotid artery stenosis. Vertebral arteries were antegrade bilaterally. ASSESSMENT & PLAN: Carotid Artery Stenosis - The patient is asymptomatic. >70% stenosis but likely less than 8 0% at this time. Would be useful to get CTA of the head/neck to evaluate further. Given re cent heart issues would defer intervention for at least 6 months regardless. Will have to d iscuss plan with professor in family studies in regards to further interventions for heart (LAD?). She yvonne uld continue ASA and prasugrel. Continue good control of DM and BP. Will follow up in 6 mo nths with repeat duplex. Will see sooner should symptoms developed. Discussed signs/sympto ms of stroke. Jacinto Tierney MD docume nted in this encounter Plan of Treatment +--------+---------+ + + + | Date | Type | Specialty | Care Team | Description | +--------+---------+ + + + | 11/06/ | Office | Vascular Surgery | Jacinto Tierney MD | | | 2019 | Visit | | [address] | | | | | | [address] | | | | | | [place] [address] | | | | | | [phone] | | | | | | | | +--------+---------+ + + + | 11/18/ | Office | Nephrology | Fermín Muse MD | | | 2019 | Visit | | [address] | | | | | | [address] [facility] | | | | | | [address] | | | | | | | | +--------+---------+ + + + | 12/26/ | Office | Cardiology | Ashlyn Gallagher | | | 2019 | Visit | | [address] | | | | | | [address] | | | | | | [place] [address] | | | | | | [phone] | | | | | | | | +--------+---------+ + + + + +---------+--------+ + + | Name | Type | Priori | Associated Diagnoses | Order Schedule | | | | ty | | | + +---------+--------+ + + | CT Angiogram Head | Imaging | Routin | Carotid stenosis, | Expected: | | Neck w Contrast | | e | bilateral | 09/22/2019, Expires: | | | | | | 08/22/2020 | + +---------+--------+ + + documented as of this encounter Visit Diagnoses + + | Diagnosis | + + | Carotid stenosis, bilateral - Primary Occlusion and stenosis of multiple and | | bilateral precerebral arteries without mention of cerebral infarction | + + documented in this encounter"
--- OUTSIDE RECORDS SUMMARY | ~2019-10-17 | XMS | Encounter Summary ---
Demographics + + + | Address | [address] | | | [place] [address] | + + + | Home Phone | | + + + | Preferred Language | Unknown | + + + | Marital Status | | + + + | Restorationism Affiliation | Unknown | + + + | Race | Unknown | + + + | Ethnic Group | Unknown | + + + Author + + + | Author | [facility] | | | and [place] | + + + | Organization | [facility] | | | and [place] | + + + | Address | Unknown | + + + | Phone | Unavailable | + + + Support + + + + + | Name | Relationship | Address | Phone | + + + + + | Deonte Simms V | ECON | [address] | | | | | [place] | | | | | [address] | | + + + + + Care Team Providers + +------+ + | Care Drug Abuse Treatment Specialist Name | Role | Phone | + [...] | | | | | Procedures | [address] | | | | | | CT Angiogram | Phone: | | | | | | Head Neck w | [phone] | | | | | | Contrast | Fax: | | | | | | [place] CT | [phone] | | | | | | ANGIO,HEAD | | | | | | | COMBO,INCL | | | | | | | IMAGE | | | | | | | PROCESS NC | | | | | | | [...] | | artery | [address] | [place], [place] | | | | | | [place], [place] | [address] | | | | | | [address] | Phone: | | | | | | Phone: | [phone] | | | | | | [phone] | Fax: | | | | | | Fax: | [phone] | | | | | | [phone] | | + + + + + + + Encounter Details +--------+---------+ + + + | Date | Type | Department | Care Team | Description | +--------+---------+ + + + | 08/21/ | Office | [facility] | Jacinto Tierney MD | Carotid stenosis, | | 2019 | Visit | VASCULAR SURGERY | [address] | bilateral (Primary | | | | [address] | [address] | Dx) | | | | E [place], [place] | [place] [address] | | | | | [address] | [phone] | | | | | [phone] | | | +--------+---------+ + + + [...] the symptoms first appeared. Date Last Reviewed: 11/30/201719991661-[address] [employer] [address] [place] [address]. All righ ts reserved. This information is not intended as a substitute for professional medical care. Always follow your healthcare professional's instructions. documented in this encounter Progress Notes Jacinto Tierney MD - 08/21/2019 8:30 AM PDTFormatting of this note might be different from t he original. [facility] [address] [place] [address] Office: [phone] DATE OF VISIT: 08/21/2019 PATIENT NAME: Deshawn Simms : 1965; AGE: 54 y.o.; Sex:F PHONE NUMBER: ; (Work); ; PHYSICIAN: Jacinto Tierney MD PRIMARY CARE / REFERRING PHYSICIAN: Ama Elizabeth DO / Nikos Crane MD / [address] / [place] [address] / REASON FOR EVALUATION / CHIEF COMPLAINT: [...] Will have to d iscuss plan with creative specialist in regards to further interventions for heart [...] [address] | | | | | | [address] | | | | | | [place] [address] | | | | | | [phone] | | | | | | | | +--------+---------+ + + + | 11/18/ | Office | Nephrology | Fermín Muse MD | | | 2019 | Visit | | [address] | | | | | | [address] [facility] | | | | | | [address] | | | | | | | | +--------+---------+ + + + | 12/26/ | Office | Cardiology | Ashlyn Gallagher | | | 2019 | Visit | | [address] | | | | | | [address] | | | | | | [place] [address] | | | | | | [phone] | | | | | | | [...]
--- OUTSIDE RECORDS SUMMARY | ~2019-10-17 | XMS | Encounter Summary ---
Demographics + + + | Address | [address] | | | [place] [address] | + + + | Home Phone | | + + + | Preferred Language | Unknown | + + + | Marital Status | | + + + | Taoism Affiliation | Unknown | + + + | Race | Unknown | + + + | Ethnic Group | Unknown | + + + Author + + + | Author | [facility] | | | and [place] | + + + | Organization | [facility] | | | and [place] | + + + | Address | Unknown | + + + | Phone | Unavailable | + + + Support + + + + + | Name | Relationship | Address | Phone | + + + + + | Deonte Simms V | ECON | [address] | | | | | [place] | | | | | [address] | | + + + + + Care Team Providers + +------+ + | Care Video Game Tester Name | Role | Phone | + [...] | SLEEP DISORDER [address] | [address] | Dx) | | | | [address] | [place], [place] | | | | | [place] [address] | [address] | | | | | [phone] | | | +--------+---------+ + + + [...] Insomnia Severity Index Insomnia Severity Index 17 [place] Sleepiness Scale Sitting and reading 3 Watching [...] pillows obtained from: [facility] [place] pressure: 5-20 cm 95%: 10.9 cm maxium: [...] appro piate paperwork. Thirty minutes were spent mhco-aw-lbte, with the majority of time spent i [...] | | | | | | [address] | | | | | | [place] [address] | | | | | | [phone] | | | | | | | | +--------+---------+ + + + | 11/18/ | Office | Nephrology | Fermín Muse MD | | | 2019 | Visit | | [address] [facility] | | | | | | [address] [place] | | | | | | [address] | | | | | | | | +--------+---------+ + + + | 12/26/ | Office | Cardiology | Ashlyn Gallagher | | | 2019 | Visit | | [address] | | | | | | [address] | | | | | | [facility] [address] | | | | | | [phone] | | | | | | | | +--------+---------+ + + + documented as of this encounter Visit Diagnoses + + | Diagnosis | + + | NARESH on CPAP - Primary Obstructive sleep apnea (adult) (pediatric) | + + documented in this encounter
--- OUTSIDE RECORDS SUMMARY | ~2019-10-17 | XMS | Encounter Summary ---
Demographics + + + | Address | [address] | | | [place] [address] | + + + | Home Phone | | + + + | Preferred Language | Unknown | + + + | Marital Status | | + + + | Mandaeism Affiliation | Unknown | + + + [...] Simms [place] | ECON | [address] | | | | | [place] | | | | | [address] | | + + + + + Care Team Providers + +------+ + | Care Reaming Machine Operator For Plastic Name | Role | Phone | + [...] [address] | | | | | [place] | | [facility] [place] | | | | | PL[facility] L HRT & | | [address] Phone: | | | | | ARTS W/NJX | | [phone] | | | | | & ANGIO IMG | | Fax: | | | | | S&I CV LHC | | [phone] | | | | | CV COR | | | | | | | ANGIO CV LV | | | +--------+--------+ + + + + Encounter Details +--------+---------+ + + + | Date | Type | Department | Care Team | Description | +--------+---------+ + + + | 08/05/ | Surgery | [facility] | Ama Elizabeth DO | CV COR ANGIO | | 2019 | | CENTER CV INTRA OP | [address] | | | | | [address] | [place] | | | | | [place] | [address] | | | | | [address] | | | | | | [phone] | | | +--------+---------+ + + + [...] Tyler MD - 08/06/2019 8:36 AM PDT [facility] Service: Cardiology Discharge Summary Date of [...] is normal S1 and S2. Systolic murmur, 1/6. CHEST: Normal bilateral symmetrical chest excursion. Good [...] visit to your physician as he eufemia llamass. Coronary Stents A stent is a small [...] the artery, helping toprevent resteno sis. A lead sustainability specialist called an grain oilseed or pasture farm manager does coronary angioplasty and stenting. He or [...] by your healthcare provider Date Last Reviewed: 07/30/201619998612-8431 [employer]. [address] [place] [address], [place] [address]. All righ ts reserved. This information is [...] cinnamon, pepper, and rupali. Date Last Reviewed: 07/30/201719992181-5195 [employer]. [address] [place] [address], [place] [address]. All righ ts reserved. This information is not intended as a substitute for professional medical care. Always follow your healthcare professional's instructions. The [facility] Diet Expanded Second Edition documented in this [...] AM PDTPatient requested prescription be sent to Lynn lópez in [place], called [facility], and they advised they will send her Rx to her preferre d pharmacy. Annelise Samano RN - 08/06/2019 [...] | | 2019 | Visit | | [address] | | | | | | [address] [facility] | | | | | | [place] [address] | | | | | | [phone] | | | | | | | | +--------+---------+ + + + | 11/18/ | Office | Nephrology | Fermín Muse MD | | | 2019 | Visit | | [address] | | | | | | [address] [place] | | | | | | [address] | | | | | | | | +--------+---------+ + + + | 12/26/ | Office | Cardiology | Ashlyn Gallagher | | | 2019 | Visit | | [address] | | | | | | [address] | | | | | | [place] [address] | | | | | | [phone] | | | | | | | [...] | | | POC | performed at [facility];[address] | | LABORATORY | | | | [address];[place], [place] | | | | | | [address] | | | | + + + + + + + + | Specimen | + + | | + + + + + + + | Performing | Address | City/State/Zipcode | Phone Number | | Organization | | | | + + + + + | [facility] | [address] | [place] [address] | [phone] | + + + + + CBC [...] [facility] | | | | performed at [facility] [address], [address] | | LABORATORY | | | | [address], | | | | | | [place] [address] | | | | + + + + + + + + | Specimen | + + | Blood | + + + + + + + | Performing | Address | City/State/Zipcode | Phone Number | | Organization | | | | + + + + + | [facility] | [address] | [place] [address] | [phone] | + + + + + Basic [...] | 9.6 | 8.5 - 10.5 | [facility] | | | | | mg/dL | LABORATORY | | + + + + + + | Estimated | 52 (L)Comment: GFR <60: | >60 | [facility] | | | GFR | CHRONIC KIDNEY [...] | | | | | performed at [facility] [address], [address] | | | | | | [facility], | | | | | | [place] [address] | | | | + + + + + + + + | Specimen | + + | Blood | + + + + + + + | Performing | Address | City/State/Zipcode | Phone Number | | Organization | | | | + + + + + | [facility] | [address] | [place] [address] | [phone] | + + + + + CK Total (08/06/2019 5:30 AM PDT) + + + + + + | Component | Value | Ref Range | Performed | Pathologist | | | | | At | Signature | + + + + + + | CK TOTAL | 157Comment: Testing | 30 - 240 U/L | [facility] | | | | performed at [facility];[address] | | LABORATORY | | | | [address];[place], [place] | | | | | | [address] | | | | + + + + + + + + | Specimen | + + | Blood | + + + + + + + | Performing | Address | City/State/Zipcode | Phone Number | | Organization | | | | + + + + + | [facility] | [address] [facility] | [place] [address] | [phone] | + + + + + POC Glucose (08/05/2019 9:17 PM PDT) + + + + + + | Component | Value | Ref Range | Performed | Pathologist | | | | | At | Signature | + + + + + + | Glucose, | 158 (H)Comment: Testing | 65 - 99 mg/dL | [facility] | | | POC | performed at [facility];[address] | | LABORATORY | | | | [address];[place] | | | | | | [address] | | | | + + + + + + + + | Specimen | + + | | + + + + + + + | Performing | Address | City/State/Zipcode | Phone Number | | Organization | | | | + + + + + | [facility] | [address] [facility] | [place] [address] | [phone] | + + + + + CV [...] | | angiography without left heart cath ([id number]) Conscious sedation | | | Procedure Summary [...] (H)Comment: Testing | 74 - 137 | [facility] | | | Clotting | performed at [facility];[address] | seconds | LABORATORY | | | Time, POC | [address];[place], [place] | | | | | | [address] | | | | + + + + + + + + | Specimen | + + | | + + + + + + + | Performing | Address | City/State/Zipcode | Phone Number | | Organization | | | | + + + + + | [facility] | [address] | [place] [address] | [phone] | + + + + + Activated clotting time (08/05/2019 11:13 AM PDT) + + + + + + | Component | Value | Ref Range | Performed | Pathologist | | | | | At | Signature | + + + + + + | Activated | 213 (H)Comment: Testing | 74 - 137 | [facility] | | | Clotting | performed at [facility];[address] | seconds | LABORATORY | | | Time, POC | [address];[place] | | | | | | [address] | | | | + + + + + + + + | Specimen | + + | | + + + + + + + | Performing | Address | City/State/Zipcode | Phone Number | | Organization | | | | + + + + + | [facility] | [address] [facility] | [place] [address] | [phone] | + + + + + Protime INR (08/05/2019 8:19 AM PDT) + + + + + + | Component | Value | Ref Range | Performed | Pathologist | | | | | At | Signature | + + + + + + | INR | 0.9Comment: REFERENCE | | [facility] | | | | RANGE:0.9 - 1.2 [...] | | | | | performed at [facility];[address] | | | | | | [facility];[place] | | | | | | [address] | | | | + + + + + + + + | Specimen | + + | Blood | + + + + + + + | Performing | Address | City/State/Zipcode | Phone Number | | Organization | | | | + + + + + | [facility] | [address] | [place] [address] | [phone] | + + + + + PTT (08/05/2019 8:19 AM PDT) + + + + + + | Component | Value | Ref Range | Performed | Pathologist | | | | | At | Signature | + + + + + + | PTT | 28Comment: Testing | 23 - 32 seconds | [facility] | | | | performed at [facility];[address] | | LABORATORY | | | | [address];[place], [place] | | | | | | [address] | | | | + + + + + + + + | Specimen | + + | Blood | + + + + + + + | Performing | Address | City/State/Zipcode | Phone Number | | Organization | | | | + + + + + | [facility] | [address] | [place] [address] | [phone] | + + + + + Basic [...] | | | | | | MDRD IDDC traceable | | | | | | equation.Testing | | | | | | performed at [facility];[address] | | | | | | [address];[place] | | | | | | [address] | | | | + + + + + + + + | Specimen | + + | Blood | + + + + + + + | Performing | Address | City/State/Zipcode | Phone Number | | Organization | | | | + + + + + | [facility] | [address] | [place] [address] | [phone] | + + + + + CBC [...] | | | Absolute | performed at [facility];[address] | K[address] | LABORATORY | | | | [address];[place], [place] | | | | | | [address] | | | | + + + + + + + + | Specimen | + + | Blood | + + + + + + + | Performing | Address | City/State/Zipcode | Phone Number | | Organization | | | | + + + + + | [facility] | [address] | [place] [address] | [phone] | + + + + + POC Glucose (08/05/2019 8:02 AM PDT) + + + + + + | Component | Value | Ref Range | Performed | Pathologist | | | | | At | Signature | + + + + + + | Glucose, | 71Comment: Testing | 65 - 99 mg/dL | [facility] | | | POC | performed at [facility];[address] | | LABORATORY | | | | [address];[place] | | | | | | [address] | | | | + + + + + + + + | Specimen | + + | | + + + + + + + | Performing | Address | City/State/Zipcode | Phone Number | | Organization | | | | + + + + + | [facility] | [address] | [place] [address] | [phone] | + + + + + documented [...] | | | + +---+ + +-------+ +---------+---+---+ | eptifibatide (INTEGRILIN) 2 | Given | 08/05/20 | 23,364 | | | | mg/mL injection ONCE PRN, | | 19 11:22 | mcg | | | | Starting 08/05/19 at 1109, | | AM PDT | | | | | Intra-op | | | | | | + +-------+ +---------+---+---+ +-------+ +---------+---+---+ | Given | 08/05/20 | 23,364 | | | | | 19 11:09 | mcg | | | | | AM PDT | | | | +-------+ +---------+---+---+ +---+---+ | | | +---+---+ + +-------+ +--------+---+---+ | fentaNYL (PF) injection ONCE | Given | 08/05/20 | 25 mcg | | | | PRN, Starting 08/05/19 at | | 19 11:34 | | | | | 1002, Intra-op | | AM PDT | | | | + +-------+ +--------+---+---+ +-------+ +--------+---+---+ | Given | 08/05/20 | 25 mcg | | | | | 19 11:07 | | | | | | AM PDT | | | | +-------+ +--------+---+---+ | Given | 08/05/20 | 25 mcg | | | | | 19 10:50 | | | | | | AM PDT | | | | +-------+ +--------+---+---+ +---+---+ | | | +---+---+ + +-------+ +--------+---+---+ | heparin 1,000 units/mL | Given | 08/05/20 | 3,000 | | | | injection ONCE PRN, Starting Mon | | 19 11:07 | Units | | | | 08/05/19 at 0940, Intra-op | | AM PDT | | | | + +-------+ +--------+---+---+ +-------+ +--------+---+---+ | Given | 08/05/20 | 5,000 | | | | | 19 9:40 | Units | | | | | AM PDT | | | | +-------+ +--------+---+---+ +---+---+ | | | +---+---+ + +-------+ +-------+---+---+ | hydrALAZINE (APRESOLINE) | [...] scheduled: AC, NPO, Daytime | | | 8708-0024 Use NIGHT DOSE for | | | doses scheduled: HS, 3AM, | | | Nighttime 7146-5294 If the BG is | | | not checked before the patient | | | starts eating, do not give | | | correction insulin. If HS insulin | | | given, check blood glucose at | | | 3AM. Only for use with U-100 | | | insulin syringe., | | + +---+ | | | + +---+ + +-------+ +--------+---+---+ | iohexol (OMNIPAQUE 300) 300 | Given | 08/05/20 | 75 mLs | | | | mg/mL injection ONCE PRN, | | 19 11:40 | | | | | Starting 08/05/19 at 1006, | | AM PDT | | | | | Intra-op | | | | | | + +-------+ +--------+---+---+ +-------+ +--------+---+---+ | Given | 08/05/20 | 70 mLs | | | | | 19 10:06 | | | | | | AM PDT | | | | +-------+ +--------+---+---+ +---+---+ | | | +---+---+ + +-------+ +--------+---+---+ | lidocaine 1% injection ONCE | Given | 08/05/20 | 10 mLs | | | | PRN, Starting Mon08/05/19 at | | 19 9:38 | | | | | 0938, Intra-op | | AM PDT | | | | + +-------+ +--------+---+---+ +---+---+ | | | +---+---+ + +-------+ +--------+---+---+ | midazolam (VERSED) 1 mg/mL | Given | 08/05/20 | 0.5 mg | | | | injection ONCE PRN, Starting Mon | | 19 10:50 | | | | | 08/05/19 at 1050, Intra-op | | AM PDT | | | | + +-------+ +--------+---+---+ +---+---+ | | | +---+---+ + +-------+ +---------+---+---+ | nitroglycerin injection ONCE | Given | 08/05/20 | 200 mcg | | | | PRN, Starting Mon08/05/19 at | | 19 9:40 | | | | | 0940, Intra-op | | AM PDT | | | | + +-------+ +---------+---+---+ +---+---+ | | | +---+---+ + +-------+ +------+---+---+ | ondansetron (ZOFRAN) injection | Given | 08/05/20 | 4 mg | | | | ONCE PRN, Starting Mon08/05/19 | | 19 11:23 | | | | | at 1123, Intra-op | | AM PDT | | | | + +-------+ +------+---+---+ [...] +---+ +---+ +---+---+ | | | +---+---+ + +-------+ +------+---+---+ | verapamil injection ONCE PRN, | Given | 08/05/20 | 1 mg | | | | Starting 08/05/19 at 0940, | | 19 9:40 | | | | | Intra-op | | AM PDT | | | | + +-------+ +------+---+---+ +---+---+ | | | +---+---+ documented in this encounter
--- OUTSIDE RECORDS SUMMARY | ~2019-10-17 | XMS | Encounter Summary ---
Demographics + + + | Address | [address] | | | [place] [address] | + + + | Home Phone | | + + + | Preferred Language | Unknown | + + + | Marital Status | | + + + | Buddhist Affiliation | Unknown | + + + | Race | Unknown | + + + | Ethnic Group | Unknown | + + + Author + + + | Author | [facility] | | | and [place] | + + + | Organization | [facility] | | | and [place] | + + + | Address | Unknown | + + + | Phone | Unavailable | + + + Support + + + + + | Name | Relationship | Address | Phone | + + + + + | Deonte Simms V | ECON | [address] | | | | | [place] | | | | | [address] | | + + + + + Care Team Providers + +------+ + | Care Bingo Worker Name | Role | Phone | + +------+ + | Nikos Crane PCP | | | MD | | | + +------+ + Encounter Details +--------+ + + + + | Date | Type | Department | Care Team | Description | +--------+ + + + + | 04/11/ | Orders Only | [facility] | Conversion | | | 2019 | | CONVERSION DEP [address] | Transaction, | | | | | [address] | Provider Unknown | | | | | [place], [place] | [phone] | | | | | [address] | | | | | | [phone] | | | +--------+ + + + [...] [address] | | | | | | [address] | | | | | | [place] [address] | | | | | | [phone] | | | | | | | | +--------+---------+ + + + | 11/18/ | Office | Nephrology | Fermín Muse MD | | | 2019 | Visit | | [address] | | | | | | [address] [place] | | | | | | [address] | | | | | | | | +--------+---------+ + + + | 12/26/ | Office | Cardiology | Ashlyn Gallagher | | | 2019 | Visit | | [address] | | | | | | [address] | | | | | | [place] [address] | | | | | | [phone] | | | | | | | | +--------+---------+ + + + documented as of this encounter Visit Diagnoses Not on filedocumented in this encounter"
--- OUTSIDE RECORDS SUMMARY | ~2019-10-17 | XMS | Encounter Summary ---
Demographics + + + | Address | [address] | | | [place] [address] | + + + | Home Phone | | + + + | Preferred Language | Unknown | + + + | Marital Status | | + + + | Quaker Affiliation | Unknown | + + + | Race | Unknown | + + + | Ethnic Group | Unknown | + + + Author + + + | Author | [facility] | | | and [place] | + + + | Organization | [facility] | | | [...] [place] | | | | | [address] | | + + + + + Care Team Providers + +------+ + | Care Continuous Dryout Operator Name | Role | Phone | + +------+ + | Eleanor Crane | PCP | | | MD [...] | Specialty | Vascular | Diagnoses | Elizabeth, | [facility] | | | Services | Surgery | Stenosis of | DO Ama | Surgery | | | Required | | left | [address] | | | | | carotid | [address] | [place] | | | | | artery | [address] | [place], [place] | | | | | | [place], [place] | [address] | | | | | | [address] | Phone: | | | | | | Phone: | [phone] | | | | | | [phone] | Fax: | | | | | | Fax: | [phone] | | | | | | [phone] | | + + + + + + + Reason for Visit + + + | Reason | Comments | + + + | Follow-up | Carotid, ECHO / stress test/ 2 month | + + + Encounter Details +--------+---------+ + + + | Date | Type | Department | Care Team | Description | +--------+---------+ + + + | 07/25/ | Office | [facility] | Ama Elizabeth DO | Abnormal stress test | | 2019 | Visit | CARDIOLOGY [place] | [address] | (Primary Dx); | | | | [address] [facility] | [place], [place] | Stenosis of left | | | | [address] | [id number] | carotid artery; | | | | [place] | | Hypertension, | | | | [address] | | unspecified type; | | | | [phone] | | Obesity, unspecified | | | [...] | | | | | (HCC) | +--------+---------+ + + + Social [...] + + + | Blood Pressure | 140/60 | 07/25/2019 1:51 PM | | | | | PDT | | + + + + + | Pulse | 87 | 07/25/2019 1:51 PM | | | | | PDT | | + + + + + | Temperature | - | - | | + + + + + | Respiratory Rate | - | - | | + + + + + | Oxygen Saturation | 95% | 07/25/2019 1:51 PM | | | | | PDT | | + + + + + | Inhaled Oxygen | - | - | | | Concentration | | | | + + + + + | Weight | 131.1 kg (289 lb) | 07/25/2019 1:51 PM | | | | | PDT | | + + + + + | Height | 162.6 cm (5' 4") | 07/25/2019 1:51 PM | | | | | PDT | | + + + + + | Body Mass Index | 49.61 | 07/25/2019 1:51 PM | | | | | PDT | | + + + + + documented in this encounter Progress Notes Ama Elizabeth, - 07/25/2019 1:40 PM PDT [facility] Cardiology Follow Up Note Reason for Consultation: angina Requesting Physician: Eleanor Crane History Obtained From: patient HISTORY OF PRESENT ILLNESS: Cardiac Problem List Hypertension Hyperlipidemia- she has had reactions to statins in the past Non Cardiac Problem List Diabetes Sleep apnea Hypothyroidism Fibromyalgia GERD Psoriasis The patient is a 53-year-old female with the above past medical history. [facility] consultation regarding chest pain. The patient started not icing the chest pains a few years ago. The chest pain is substernal with radiation into her left shoulder and into her left jaw. The pain is described as sharp in nature. It typical ly lasts anywhere from seconds to minutes. She gets the pain approximately once per week, p reviously she was getting it more frequently. She believes that the pain has lessened recen tly. The pain is associated with some shortness of breath. It aggravated with stress and o nce she gets angry. It has also occurred with exertion in the past. She had one episode th at awoke her in the middle of the night. She tries relaxing and the pain subsides. She ke cribes herself as an inactive person due to issues with severe hip pain when she exerts hers elf. She is only able to walk about half a block before needing to stop due to pain. She w orks at the [employer] [facility]. She is on her feet most of th day. She also admits to some lower extremity swelling. She denies any orthopnea or PND. She denies any episodes of syncope or pre-syncope. Interim History I last saw the patient on 04/11/2019. At that time, I ordered a complete echocardiogram as well as a nuclear stress test. Her echocardiogram was notable for normal left ventricular systolic function, she had mild concentric left ventricular hypertrophy with no regional wal l motion abnormalities. Her right ventricle was normal in size and function and no pericard ial effusion was noted. On her nuclear stress test, she was noted to have diminished uptak e in the inferior lateral wall on stress images. Summed stress score was 21, summed rest sc ore was 3. Her ejection fraction on that study was normal. Since we last saw each other, s he continues to have intermittent episodes of chest discomfort primarily when she exerts her self. She has no other new complaints or issues today. Review of Systems Constitutional: positive for fatigue. HENT: Negative for nosebleeds. Eyes: Negative for visual disturbance. Respiratory: Negative for cough and shortness of breath. Cardiovascular: see HPI Gastrointestinal: Negative for nausea, vomiting, abdominal pain and blood in stool. She has GERD. Genitourinary: Negative for hematuria or dysuria. Musculoskeletal: Negative for myalgias, back pain. She has arthritis. Skin: Negative for color change. Neurological: Negative for dizziness, syncope and numbness. Hematological: Does not bruise/bleed easily. Psychiatric/Behavioral: The patient is not nervous/anxious. PAST MEDICAL & SURGICAL HISTORY Past Medical History Diagnosis Date Acute bronchitis Arthralgia Chronic pain syndrome Esophagitis Exertional angina (HCC) Fibromyalgia HTN (hypertension) Hyperlipidemia Hyperlipoproteinemia Hypothyroidism Sleep apnea Type 2 diabetes mellitus (HCC) Past Surgical History Procedure Laterality Date SECTION CHOLECYSTECTOMY Pilonidal Cyst Resection MEDICATIONS Home Medications Outpatient Encounter Prescriptions as of 04/11/2019 Medication Sig Dispense Refill aspirin 81 MG chewable tablet Take 81 mg by mouth daily with breakfast. cyanocobalamin (VITAMIN B-12) 2000 MCG tablet Take 2,500 mcg by mouth daily. dapagliflozin propanediol (FARXIGA) 10 MG tablet Take 10 mg by mouth every morning. ergocalciferol (DRISDOL) 00974 units capsule Take 50,000 Units by mouth once a week. ferrous sulfate, 65 FE, 324 (65 FE) MG EC tablet Take 65 mg of iron by mouth 3 (three) times daily with meals. ibuprofen (ADVIL) 200 MG tablet Take 200 mg by mouth every 6 (six) hours as needed for Pain. Insulin Degludec (TRESIBA FLEXTOUCH SC) Inject into the skin. insulin glulisine (APIDRA) 100 UNIT/ML injection Inject into the skin 3 (three) times daily before meals. Inulin (FIBER CHOICE FRUITY BITES PO) Take by mouth. levothyroxine (SYNTHROID) 100 MCG tablet Take 100 mcg by mouth every morning before judith akfast. metFORMIN (GLUCOPHAGE) 1000 MG tablet Take 1,000 mg by mouth 2 (two) times daily with m fidelbrown. metoprolol (TOPROL-XL) 100 MG 24 hr tablet Take 100 mg by mouth daily. nitroGLYCERIN (NITROSTAT) 0.[address] 0.4 mg under the tongue every 5 (five) minutes as needed for Chest pain. pregabalin (LYRICA) 50 MG capsule Take 50 mg by mouth 3 (three) times daily. [DISCONTINUED] insulin glargine (LANTUS) 100 UNIT/ML injection Inject into the skin kathya yoder. No facility-administered encounter medications on file as of 04/11/2019. Allergies Allergies Allergen Reactions Augmentin [Amoxicillin-Pot Clavulanate] Other (See Comments) THRUSH ON THE TONGUE Penicillins Rash FAMILY HISTORY Family History Problem Relation Age of Onset Diabetes type II Mother Heart attack Mother Hypertension Mother High cholesterol Mother Diabetes type I Father - mom CAD in 50s SOCIAL HISTORY Social History Social History Marital status: Spouse name: N/A Number of children: N/A Years of education: N/A Occupational History Not on file. Social History Main Topics Smoking status: Former Smoker Smokeless tobacco: Never Used Alcohol use Yes Comment: RARELY Drug use: No Sexual activity: Not on file Other Topics Concern Not on file Social History Narrative No narrative on file - quit smoking 6 years ago, started at 19yo 1ppd PHYSICAL EXAM Vitals: 07/25/19 1351 BP: 140/60 Pulse: 87 SpO2: 95% Weight: 131.1 kg (289 lb) Height: 1.626 m (5' 4") Physical Exam GENERAL: Obese body habitus, in no distress. Appears approximately stated age. HEENT: Normocephalic, atraumatic. EYES: PERRL, sclerae anicteric, no xanthelsasmas NECK: No JVD, lymphadenopathy, thyromegaly. Left carotid bruit. LUNGS: Clear bilaterally, with no rales, rhonchi or wheezing noted, respirations unlabored HEART: Nondisplaced PMI, regular rate and rhythm, S1, S2 normal. Soft systolic murmur, no rubs or gallops noted. ABDOMEN: Soft, nontender, no organomegaly, masses or bruits. Bowel sounds are normal in a ll 4 quadrants. EXTREMITIES: 2+ b/l LE edema. Radial pulses 2+ bilaterally. DP and PT pulses are 2+ bilate rally. SKIN: Warm and dry, capillary refill is normal, no lesions. NEUROLOGIC: Awake, alert and oriented x 3. No focal motor deficits. PSYCHIATRIC: Appropriate, affect appears normal DATA Blood work from 01/01/2019 reviewed including white blood cell count 8.8, hemoglobin 11.4, he matocrit 35.1, platelet count 398, glucose 120, BUN 31, creatinine 1.1, sodium 141, potassiu m 4.5, chloride 105, carbon dioxide 24, calcium 9.8, total protein 6.9, albumin 3.4, total b ilirubin 0.4, AST 14, ALT 15, alkaline phosphatase 77 EK01/01/19 normal sinus rhythm 92BPM, normal EKG Last Echo: Last stress test: Last cath: Carotid US: AAA screening: Lower extremity US: OTHERS: ASSESSMENT & PLAN 1. Chest pain/abnormal stress test 2. Left carotid bruit 3. Hypertension 4. Hyperlipidemia- she has had reactions to statins in the past 5. Diabetes 6. Sleep apnea- on CPAP 7. Hypothyroidism 8. Fibromyalgia 9. GERD 10. Psoriasis -The patient is a 53-year-old female who presents to the cardiology office for initial cons ultation regarding chest pains. Her chest pains have both typical and atypical features. S he was also noted to have a left carotid bruit on physical exam. She recently had a nuclear stress test with was positive for reversible ischemia. She continues to have exertional symp toms. We discussed coronary angiography to further assess her coronary anatomy. -Angiogram, with its associated alternatives, benefits, and risks, the latter including but not limited to possible need for more than one vascular access site, , IN, CVA, bleedi ng (including the need for blood transfusion), vascular damage (including the need for emerg ent surgical repair, including PCI/stent placement or CABG), renal failure (including the po ssible need for short or long-term use of hemodialysis), allergic reactions/anaphylaxis, and the risks of moderate anesthesia/sedation, were discussed in detail. The patient verbalized understanding and agrees to proceed. -Continue aspirin 81 mg by mouth daily -Continue metoprolol succinate 100 mg by mouth daily -The patient was advised that if she has any prolonged episodes or episodes that are more i ntense than usual, she should come to the ER. - I have written her for SL nitro and instructed her how to use it. -Follow up in 6 weeks Thank you for allowing me to participate in the care of this patient. Primary Care Physician: ELEANOR Elizabeth DO documented in this enco unter Plan of Treatment +--------+---------+ + + + | Date | Type | Specialty | Care Team | Description | +--------+---------+ + + + | 11/06/ | Office | Vascular Surgery | Jacinto Tierney MD | | | 2019 | Visit | | [address] | | | | | | [address] [facility] | | | | | | [place] [address] | | | | | | [phone] | | | | | | | | +--------+---------+ + + + | 11/18/ | Office | Nephrology | Fermín Muse MD | | | 2019 | Visit | | [address] [facility] | | | | | | [address] [place] | | | | | | [address] | | | | | | | | +--------+---------+ + + + | 12/26/ | Office | Cardiology | Ashlyn Gallagher | | | 2019 | Visit | | [address] | | | | | | [address] | | | | | | [place] [address] | | | | | | [phone] | | | | | | | | +--------+---------+ + + + + + +--------+ + + | Name | Type | Priori | Associated Diagnoses | Order Schedule | | | | ty | | | + + +--------+ + + | Ambulatory Referral | Outpatient | Routin | Stenosis of left | Ordered: 07/26/2019 | | to Located Within [facility] Vascular | Referral | e | carotid artery | | | Surgery | | | | | + + +--------+ + + documented as of this encounter Visit Diagnoses + + | Diagnosis | + + | Abnormal stress test - Primary Other nonspecific abnormal cardiovascular system | | function study | + + | Stenosis of left carotid artery Occlusion and stenosis of carotid artery without | | mention of cerebral infarction | + + | Hypertension, unspecified type | + + | Obesity, unspecified classification, unspecified obesity type, unspecified whether | | serious comorbidity present | + + | Uncontrolled type 2 diabetes mellitus with hyperglycemia (HCC) | + + documented in this encounter
--- OUTSIDE RECORDS SUMMARY | ~2019-10-17 | XMS | Encounter Summary ---
Demographics + + + | Address | [address] | | | [place] [address] | + + + | Home Phone | | + + + | Preferred Language | Unknown | + + + | Marital Status | | + + + | Orthodox Affiliation | Unknown | + + + | Race | Unknown | + + + | Ethnic Group | Unknown | + + + Author + + + | Author | [facility] | | | and [place] | + + + | Organization | [facility] | | | and [place] | + + + | Address | Unknown | + + + | Phone | Unavailable | + + + Support + + + + + | Name | Relationship | Address | Phone | + + + + + | Deonte Simms V | ECON | [address] [address] | | | | | [place] | | | | | [address] | | + + + + + Care Team Providers + +------+ + | Care Bandoleer Straightener Stamper Name | Role | Phone | + +------+ + | Nikos Crane | PCP | | | MD | | | + +------+ + Reason for Referral Evaluate & Treat (Routine) +--------+ + + + + + | Status | Reason | Specialty | Diagnoses / | Referred By | Referred To | | | | | Procedures | Contact | Contact | +--------+ + + + + + | Closed | Specialty | Cardiac | Diagnoses | Alqaisi, | [facility] | | | Services | Rehabilitatio | S/P drug | MD Fermín | Pulmonary | | | Required | n | eluting | [address] | | | | | coronary | [address] | [address] | | | | | stent | [place], | [place], [place] | | | | | placement | [place] [address] | [address] | | | | | Procedures | Phone: | Phone: | | | | | CARDIAC | [phone] | [phone] | | | | | REHAB | Fax: | Fax: | | | | | | [phone] | [phone] | +--------+ + + + + + Reason for Visit Auth/Cert +--------+--------+ + [...] [place], [place] | | | | | tetlin | | [address] Phone: | | | | | coronary | | [phone] | | | | | artery of | | Fax: | | | | | tetlin heart | | [phone] | | | | | with angina [...] | | | | | | | AR R & L HRT | | | | | | | CATH WINJX | | | | | | | HRT ART& L | | | | | | | VENTR IMG | | | +--------+--------+ + + + + Encounter Details +--------+ + + + + | Date | Type | Department | Care Team | Description | +--------+ + + + + | 09/09/ | Hospital | [facility] | Fermín Tyler MD | S/P drug eluting | | 2019 | Encounter | [facility] | [address] | coronary stent | | | | CARE [address] | [place] [address] | placement (Primary | | | | [address] | [phone] | Dx); Coronary artery | | | | [place], [place] | | disease involving | | | | [address] | | tetlin coronary | | | | [phone] | | artery of tetlin | | | | | | heart with angina | | | | | | pectoris ([facility]); S/P | | | | | | [...] (HCC) | +--------+ + + + + Social [...] | | | | | | [address] | | | | | | [place] [address] | | | | | | [phone] | | | | | | | | +--------+---------+ + + + | 11/18/ | Office | Nephrology | Fermín Muse MD | | | 2019 | Visit | | [address] [facility] [address] | | | | | | [address] [place] | | | | | | [address] | | | | | | | | +--------+---------+ + + + | 12/26/ | Office | Cardiology | Ashlyn Gallagher | | | 2019 | Visit | | [address] | | | | | | [address] | | | | | | [place] [address] | | | | | | [phone] | | | | | | | | +--------+---------+ + + + + + +--------+ + + | Name | Type | Priori | Associated Diagnoses | Order Schedule | | | | ty | | | + + +--------+ + + | Ambulatory Referral | Outpatient | Routin | S/P drug eluting | Ordered: 09/09/2019 | | to [facility] Cardiac | Referral | e | coronary [...] the | | | | PST | tetlin coronary | results section. | | | | | artery of tetlin | | | | | | heart [...] | | | | | | mellitus ([facility]) | | | | | | Bilateral carotid | | | | | | artery stenosis | | | | | | Stage 3 chronic | | | | | | kidney disease ([facility]) | | + +--------+ + + + | CV CARDIAC PROCEDURE | Routin | 09/09/2019 | Coronary artery | Results for this | | | e | 11:44 AM | disease involving | procedure are in the | | | | PST | tetlin coronary | results section. | | | | | artery of tetlin | | | | | | heart with angina | | | | | | pectoris ([facility]) S/P | | | | | | [...] | | | | | | mellitus ([facility]) | | | | | | Bilateral [...] non-overlapping | | | drug-eluting stents, resolute Morgan 2.0 x 22 mm in the distal [...] coronary artery with stent | | | (40676 LD) Conscious sedation (physician supervision) for 30 total | | | minutes - (03070) + 0 ([id number]) Procedure Summary Access site: right | | | radial artery Anticoagulation: heparin Antiplatelet therapy: | | | Patient has been on long-term dual antiplatelet therapy, aspirin and | | | Prasugrel. Closure: Radial band/closure device Clinical | | | IndicationsThis is a 54 y.o. year old female [...] | | | Clotting | performed at [facility];[address] | seconds | LABORATORY | | | Time, POC | [address];[place], [place] | | | | | | [address] | | | | + + + + + + + + | Specimen | + + | | + + + + + + + | Performing | Address | City/State/Zipcode | Phone Number | | Organization | | | | + + + + + | [facility] | [address] | [place] [address] | [phone] | + + + + + Activated clotting time (09/09/2019 11:18 AM PST) + + + + + + | Component | Value | Ref Range | Performed | Pathologist | | | | | At | Signature | + + + + + + | Activated | 191 (H)Comment: Testing | 74 - 137 | [facility] | | | Clotting | performed at [facility];888 | seconds | LABORATORY | | | Time, POC | [address];[place] | | | | | | [address] | | | | + + + + + + + + | Specimen | + + | | + + + + + + + | Performing | Address | City/State/Zipcode | Phone Number | | Organization | | | | + + + + + | [facility] | [address] | [place] [address] | [phone] | + + + + + Basic [...] 55 (L)Comment: GFR <60: | >60 | KR | | | GFR | CHRONIC KIDNEY [...] | | | | | performed at [facility];[address] | | | | | | [facility];[place], [place] | | | | | | [address] | | | | + + + + + + + + | Specimen | + + | Blood | + + + + + + + | Performing | Address | City/State/Zipcode | Phone Number | | Organization | | | | + + + + + | [facility] | [address] | [place] [address] | [phone] | + + + + + CBC [...] MPV | 8.2Comment: Testing | fl | KAI | | | | performed at [facility];[address] | | LABORATORY | | | | [address];[place], [place] | | | | | | [address] | | | | + + + + + + + + | Specimen | + + | Blood | + + + + + + + | Performing | Address | City/State/Zipcode | Phone Number | | Organization | | | | + + + + + | [facility] | [address] | [place] [address] | [phone] | + + + + + POC Glucose (09/09/2019 9:42 AM PST) + + + + + + | Component | Value | Ref Range | Performed | Pathologist | | | | | At | Signature | + + + + + + | Glucose, | 68Comment: Testing | 65 - 99 mg/dL | [facility] | | | POC | performed at [facility];[address] | | LABORATORY | | | | [address];[place], [place] | | | | | | [address] | | | | + + + + + + + + | Specimen | + + | | + + + + + + + | Performing | Address | City/State/Zipcode | Phone Number | | Organization | | | | + + + + + | [facility] | [address] | [place] [address] | [phone] | + + + + + documented in this encounter Visit Diagnoses + + | Diagnosis | + + | S/P drug eluting coronary stent placement - Primary | + + | 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) [...] + + | 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
--- OUTSIDE RECORDS SUMMARY | ~2019-10-17 | XMS | Encounter Summary ---
Demographics + + + | Address | [address] [facility] | | | [place] [address] | + + + | Home Phone | | + + + | Preferred Language | Unknown | + + + | Marital Status | | + + + | Bahai Affiliation | Unknown | + + + | Race | Unknown | + + + | Ethnic Group | Unknown | + + + Author + + + | Author | [facility] | | | and [place] | + + + | Organization | [facility] | | | and [place] | + + + | Address | Unknown | + + + | Phone | Unavailable | + + + Support + + + + + | Name | Relationship | Address | Phone | + + + + + | Deonte Simms V | ECON | [address] | | | | | [place] | | | | | [address] | | + + + + + Care Team Providers + +------+ + | Care Vp Of Global Marketing Name | Role | Phone | + +------+ + | Nikos Crane | PCP | | | MD | | | + +------+ + Reason for Visit +---------+ + | Reason | Comments | +---------+ + | Imaging | | +---------+ + Encounter Details +--------+ + + + + | Date | Type | Department | Care Team | Description | +--------+ + + + + | 08/27/ | Telephone | [facility] | Maryann Fuller, | Imaging | | 2019 | | VASCULAR SURGERY | RN | | | | | [address] | | | | | | [place], [place] | | | | | | [address] | | | | | | [phone] | | | +--------+ + + + [...] | | | | | | [place] | | | | | | [place] [address] | | | | | | [phone] | | | | | | | | +--------+---------+ + + + | 11/18/ | Office | Nephrology | Fermín Muse MD | | | 2019 | Visit | | [address] | | | | | | [address] | | | | | | [address] | | | | | | | | +--------+---------+ + + + | 12/26/ | Office | Cardiology | Ashlyn Gallagher | | | 2019 | Visit | | [address] | | | | | | [address] | | | | | | [place] [address] | | | | | | [phone] | | | | | | | | +--------+---------+ + + + documented as of this encounter Visit Diagnoses Not on filedocumented in this encounter"
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
--- OUTSIDE RECORDS SUMMARY | ~2019-10-17 | XMS | Encounter Summary ---
Demographics + + + | Address | [address] | | | [place] [address] | + + + | Home Phone | | + + + | Preferred Language | Unknown | + + + | Marital Status | | + + + | Confucianist Affiliation | Unknown | + + + | Race | Unknown | + + + | Ethnic Group | Unknown | + + + Author + + + | Author | [facility] | | | and [place] | + + + | Organization | [facility] | | | and [place] | + + + | Address | Unknown | + + + | Phone | Unavailable | + + + Support + + + + + | Name | Relationship | Address | Phone | + + + + + | Deonte Simms V | ECON | [address] | | | | | [place] | | | | | [address] | | + + + + + Care Team Providers + +------+ + | Care Swatch Folder Name | Role | Phone | + +------+ + | Nikos Crane PCP | | | MD | | | + +------+ + Encounter Details +--------+ + + + + | Date | Type | Department | Care Team | Description | +--------+ + + + + | 05/15/ | Orders Only | [facility] | Ama Elizabeth DO | | | 2019 | | CONVERSION [address] | [address] | | | | | [address] | [place], [place] | | | | | [place], [place] | [address] | | | | | [address] | | | | | | [phone] | | | +--------+ + + + [...] | | | | | [address] [facility] | | | | | | [place] [address] | | | | | | [phone] | | | | | | | | +--------+---------+ + + + | 11/18/ | Office | Nephrology | Fermín Muse MD | | | 2019 | Visit | | [address] | | | | | | [address] [place] | | | | | | [address] | | | | | | | | +--------+---------+ + + + | 12/26/ | Office | Cardiology | Elliott Ashlyn | | | 2019 | Visit | | [address] | | | | | | [address] | | | | | | [place] [address] | | | | | | [phone] | | | | | | | | +--------+---------+ + + + documented as of this encounter Procedures + +--------+ + + + | Procedure Name | Priori | Date/Time | Associated Diagnosis | Comments | | | ty | | | | + +--------+ + + + | ECHO INTERPRETATION | Routin | 05/15/2019 | | Results for this | | OF OUTSIDE FILMS | e | 5:47 PM | | procedure are in the | | | | PDT | | results section. | + +--------+ + + + documented in this encounter Results ECHO Interpretation of Outside Films (05/15/2019 5:47 PM PDT) + + | Specimen | + + | | + + + + + | Impressions | Performed At | + + + | 1. Left ventricular systolic function is hyperdynamic with an | | | estimated EF of >70%. 2. There is mild concentric left ventricular | | | hypertrophy. 3. No regional wall motion abnormalities. 4. The right | | | ventricle is normal in size and function. 5. There is no pericardial | | | effusion. | | + + + + + + | Narrative | Performed At | + + + | Patient Name: Deshawn Simms Date of : 1965 | | | Performing Physician: Ama Elizabeth MD | | | | | | INDICATIONS CHEST PAIN CONCLUSIONS 1. | | | Left ventricular systolic function is hyperdynamic with an estimated | | | EF of >70%. 2. There is mild concentric left ventricular hypertrophy. | | | 3. No regional wall motion abnormalities. 4. The right ventricle is | | | normal in size and function. 5. There is no pericardial effusion. | | | FINDINGS -------- ECG rhythm: Sinus rhythm. Study: A | | | 2-dimensional transthoracic echocardiogram with m-mode, spectral and | | | color flow Doppler was perfomed. Study: Definity contrast agent was | | | used to better delineate the left ventricular wall segments. Study: | | | This was a technically difficult study with suboptimal apical views. | | | Left Ventricle: Left ventricular systolic function is hyperdynamic | | | with an estimated EF of >70%. Left Ventricle: The left ventricle | | | cavity size is normal. Left Ventricle: There is mild concentric left | | | ventricular hypertrophy. Left Ventricle: No regional wall motion | | | abnormalities. Left Ventricle: The diastolic filling pattern | | | indicates impaired relaxation consistent with mild dysfunction (Grade | | | I). Right Ventricle: The right ventricle is normal in size and | | | function. Left Atrium: The left atrium is normal in size. Right | | | Atrium: The right atrium is normal in size. Aortic Valve: The aortic | | | valve was not well visualized. Aortic Valve: There is no evidence of | | | aortic regurgitation. Aortic Valve: There is no evidence of aortic | | | stenosis. Mitral Valve: Normal appearing mitral valve. Mitral Valve: | | | Mild mitral regurgitation is present. Tricuspid Valve: The tricuspid | | | valve appears structurally normal. Tricuspid Valve: Trace tricuspid | | | regurgitation present. Tricuspid Valve: The poor TR signal prevents | | | accurate estimation of pulmonary pressures. Pulmonic Valve: The | | | pulmonic valve was not well visualized. Pulmonic Valve: Trace | | | pulmonic regurgitation. Pericardium: There is no pericardial | | | effusion. IVC/Hepatic Veins: The inferior vena cava is normal in size | | | and collapses > 50 % with sniff, indicating normal central venous | | | pressures. Aorta: The aortic root, ascending aorta and aortic arch | | | are normal. Mass: No mass visualized Thrombus: No clot visualized | | | Thrombus: No vegetation visualized. Septum: No ASD observed. Septum: | | | No VSD observed. MEASUREMENTS Ao asc: 3.22 cm | | | Ao sinus: 3.[address] junct: 3.25 cm IVC: 1.75 cm | | | EDV(Teich): 133.90 ml IVSd: 1.18 cm LVIDd: 5.27 cm LVPWd: | | | 1.26 cm LVOT Area: 3.61 cm2 LVOT Diam: 2.14 cm %FS: | | | 38.69 % EF(Teich): 68.60 % ESV(Teich): 42.03 ml LVIDs: | | | 3.23 cm SV(Teich): 91.87 ml RV Major: 7.30 cm RV Minor: | | | 3.19 cm LVEF MOD A2C: 66.35 % SV MOD A2C: 65.61 ml LVEF MOD | | | A4C: 77.48 % SV MOD A4C: 83.37 ml EF Biplane: 71.82 % | | | LVEDV MOD BP: 103.20 ml LVESV MOD BP: 29.07 ml LVEDV MOD A2C: | | | 98.89 ml LVLd A2C: 7.71 cm LVEDV MOD A4C: 107.60 ml LVLd | | | A4C: 7.68 cm LVESV MOD A2C: 33.27 ml LVLs A2C: 6.51 cm | | | LVESV MOD A4C: 24.22 ml LVLs A4C: 6.16 cm LAESV(A-L): 44.50 | | | ml LAESV Index (A-L): 19.69 ml/m2 LAAs A2C: 16.31 cm2 LAESV | | | A-L A2C: 46.51 ml LALs A2C: 4.85 cm LAAs A4C: 14.53 cm2 | | | LAESV A-L A4C: 39.65 ml LALs A4C: 4.52 cm RAAs: 13.04 cm2 | | | RAESV A-L: 33.39 ml RAESV MOD: 32.07 ml RALs: 4.32 cm | | | TAPSE: 2.13 cm AV maxP.35 mmHg AV meanP.95 mmHg AV | | | Vmax: 1.52 m/s AV Vmean: 1.05 m/s AV VTI: 28.91 cm PO | | | Vmax: 2.74 cm2 PO (VTI): 3.16 cm2 AVAI (Vmax): 0.00 cm2/m2 | | | AVAI (VTI): 0.00 cm2/m2 LVOT maxP.37 mmHg LVOT meanPG: | | | 3.05 mmHg LVSI Dopp: 40.53 ml/m2 LVSV Dopp: 91.60 ml LVOT | | | Vmax: 1.15 m/s LVOT Vmean: 0.83 m/s LVOT VTI: 25.32 cm MV | | | A Federico: 0.98 m/s MV Dec [place]: 5.49 m/s2 MV DecT: 130.97 ms | | | MV E Federico: 0.71 m/s MV E/A Ratio: 0.72 MV PHT: 37.98 ms | | | MVA By PHT: 5.79 cm2 Septal e': 0.05 m/s Septal E/e': 13.62 | | | Lateral e': 0.07 m/s Lateral E/e': 9.30 RV s': 0.14 m/s | | | Gravity Prospector: DBS Authenticated by: Ama Elizabeth MD Report | | | Date/Time: -- [id number]:13 | | + + + + + | Procedure Note | + + | Last, Rad Conversion - 06/20/2019 2:04 PM PDT Patient Name: Catherine Simms | | of : 1965 Performing Physician: Ama Elizabeth | | INDICATIONS C | | HEST PAIN CONCLUSIONS 1. Left ventricular systolic function is hyperdynamic | | with an estimated EF of >70%.2. There is mild concentric left ventricular hypertrophy.3. | | No regional wall motion abnormalities.4. The right ventricle is normal in size and | | function.5. There is no pericardial effusion. FINDINGS--------ECG rhythm: Sinus | | rhythm.Study: A 2-dimensional transthoracic echocardiogram with m-mode, spectral and | | color flow Doppler was perfomed.Study: Definity contrast agent was used to better | | delineate the left ventricular wall segments.Study: This was a technically difficult | | study with suboptimal apical views.Left Ventricle: Left ventricular systolic function is | | hyperdynamic with an estimated EF of >70%.Left Ventricle: The left ventricle cavity | | size is normal.Left Ventricle: There is mild concentric left ventricular | | hypertrophy.Left Ventricle: No regional wall motion abnormalities.Left Ventricle: The | | diastolic filling pattern indicates impaired relaxation consistent with mild dysfunction | | (Grade I).Right Ventricle: The right ventricle is normal in size and function.Left | | Atrium: The left atrium is normal in size.Right Atrium: The right atrium is normal in | | size.Aortic Valve: The aortic valve was not well visualized.Aortic Valve: There is no | | evidence of aortic regurgitation.Aortic Valve: There is no evidence of aortic | | stenosis.Mitral Valve: Normal appearing mitral valve.Mitral Valve: Mild mitral | | regurgitation is present.Tricuspid Valve: The tricuspid valve appears structurally | | normal.Tricuspid Valve: Trace tricuspid regurgitation present.Tricuspid Valve: The poor | | TR signal prevents accurate estimation of pulmonary pressures.Pulmonic Valve: The | | pulmonic valve was not well visualized.Pulmonic Valve: Trace pulmonic | | regurgitation.Pericardium: There is no pericardial effusion.IVC/Hepatic Veins: The | | inferior vena cava is normal in size and collapses > 50 % with sniff, indicating normal | | central venous pressures.Aorta: The aortic root, ascending aorta and aortic arch are | | normal.Mass: No mass visualizedThrombus: No clot visualizedThrombus: No vegetation | | visualized.Septum: No ASD observed.Septum: No VSD observed. MEASUREMENTS Ao | | asc: 3.22 cmAo sinus: 3.[address] junct: 3.25 cmIVC: 1.75 cmEDV(Teich): | | 133.90 mlIVSd: 1.18 cmLVIDd: 5.27 cmLVPWd: 1.26 cmLVOT Area: 3.61 [id number] Diam: | | 2.14 cm%FS: 38.69 %EF(Teich): 68.60 %ESV(Teich): 42.03 mlLVIDs: 3.23 | | cmSV(Teich): 91.87 mlRV Major: 7.30 cmRV Minor: 3.19 cmLVEF MOD A2C: 66.35 %SV | | MOD A2C: 65.61 mlLVEF MOD A4C: 77.48 %SV MOD A4C: 83.37 mlEF Biplane: 71.82 | | %LVEDV MOD BP: 103.20 mlLVESV MOD BP: 29.07 mlLVEDV MOD A2C: 98.89 mlLVLd A2C: | | 7.71 cmLVEDV MOD A4C: 107.60 mlLVLd A4C: 7.68 cmLVESV MOD A2C: 33.27 mlLVLs A2C: | | 6.51 cmLVESV MOD A4C: 24.22 mlLVLs A4C: 6.16 cmLAESV(A-L): 44.50 mlLAESV Index | | (A-L): 19.69 ml/m2LAAs A2C: 16.31 [id number] A-L A2C: 46.51 mlLALs A2C: 4.85 | | cmLAAs A4C: 14.53 [id number] A-L A4C: 39.65 mlLALs A4C: 4.52 cmRAAs: 13.04 | | [id number] A-L: 33.39 mlRAESV MOD: 32.07 mlRALs: 4.32 cmTAPSE: 2.13 cmAV maxPG: | | 9.35 mmHgAV meanP.95 mmHgAV Vmax: 1.52 m/Delfino Vmean: 1.05 m/Delfino VTI: 28.91 | | cmAVA Vmax: 2.74 cm2AVA (VTI): 3.16 ln7WBID (Vmax): 0.00 cm2/m2AVAI (VTI): 0.00 | | cm2/m2LVOT maxP.37 mmHgLVOT meanP.05 mmHgLVSI Dopp: 40.53 ml/m2LVSV Dopp: | | 91.60 mlLVOT Vmax: 1.15 m/sLVOT Vmean: 0.83 m/sLVOT VTI: 25.32 cmMV A Federico: | | 0.98 m/sMV Dec [place]: 5.49 m/s2MV DecT: 130.97 msMV E Federico: 0.71 m/sMV E/A Ratio: | | 0.72MV PHT: 37.98 msMVA By PHT: 5.79 ro7Vrsofa e': 0.05 m/sSeptal E/e': | | 13.62Lateral e': 0.07 m/sLateral E/e': 9.30RV s': 0.14 m/s Gravity Prospector: | | DBSAuthenticated by: Ama Elizabeth MDReport Date/Time: -- [id number]:21:13 | | IMPRESSION: 1. Left ventricular systolic function is hyperdynamic with an estimated EF | | of >70%.2. There is mild concentric left ventricular hypertrophy.3. No regional wall | | motion abnormalities.4. The right ventricle is normal in size and function.5. There is | | no pericardial effusion. | | | |MEASUREMENTS | | | |Ao asc: 3.22 cm | |Ao sinus: 3.50 cm | |Ao st junct: 3.25 cm | |IVC: 1.75 cm | |EDV(Teich): 133.90 ml | |IVSd: 1.18 cm | |LVIDd: 5.27 cm | |LVPWd: 1.26 cm | |LVOT Area: 3.61 cm2 | |LVOT Diam: 2.14 cm | |%FS: 38.69 % | |EF(Teich): 68.60 % | |ESV(Teich): 42.03 ml | |LVIDs: 3.23 cm | |SV(Teich): 91.87 ml | |RV Major: 7.30 cm | |RV Minor: 3.19 cm | |LVEF MOD A2C: 66.35 % | |SV MOD A2C: 65.61 ml | |LVEF MOD A4C: 77.48 % | |SV MOD A4C: 83.37 ml | |EF Biplane: 71.82 % | |LVEDV MOD BP: 103.20 ml | |LVESV MOD BP: 29.07 ml | |LVEDV MOD A2C: 98.89 ml | |LVLd A2C: 7.71 cm | |LVEDV MOD A4C: 107.60 ml | |LVLd A4C: 7.68 cm | |LVESV MOD A2C: 33.27 ml | |LVLs A2C: 6.51 cm | |LVESV MOD A4C: 24.22 ml | |LVLs A4C: 6.16 cm | |LAESV(A-L): 44.50 ml | |LAESV Index (A-L): 19.69 ml/m2 | |LAAs A2C: 16.31 cm2 | |LAESV A-L A2C: 46.51 ml | |LALs A2C: 4.85 cm | |LAAs A4C: 14.53 cm2 | |LAESV A-L A4C: 39.65 ml | |LALs A4C: 4.52 cm | |RAAs: 13.04 cm2 | |RAESV A-L: 33.39 ml | |RAESV MOD: 32.07 ml | |RALs: 4.32 cm | |TAPSE: 2.13 cm | |AV maxP.35 mmHg | |AV meanP.95 mmHg | |AV Vmax: 1.52 m/s | |AV Vmean: 1.05 m/s | |AV VTI: 28.91 cm | |PO Vmax: 2.74 cm2 | |PO (VTI): 3.16 cm2 | |AVAI (Vmax): 0.00 cm2/m2 | |AVAI (VTI): 0.00 cm2/m2 | |LVOT maxP.37 mmHg | |LVOT meanP.05 mmHg | |LVSI Dopp: 40.53 ml/m2 | |LVSV Dopp: 91.60 ml | |LVOT Vmax: 1.15 m/s | |LVOT Vmean: 0.83 m/s | |LVOT VTI: 25.32 cm | |MV A Federico: 0.98 m/s | |MV Dec Chariton: 5.49 m/s2 | |MV DecT: 130.97 ms | |MV E Federico: 0.71 m/s | |MV E/A Ratio: 0.72 | |MV PHT: 37.98 ms | |MVA By PHT: 5.79 cm2 | |Septal e': 0.05 m/s | |Septal E/e': 13.62 | |Lateral e': 0.07 m/s | |Lateral E/e': 9.30 | |RV s': 0.14 m/s | | | |Gravity Prospector: DBS | |Authenticated by: Ama Elizabeth MD | |Report Date/Time: -- [id number]:21:13 | | | |IMPRESSION: | |1. Left ventricular systolic function is hyperdynamic with an estimated EF of >70%. | |2. There is mild concentric left ventricular hypertrophy. | |3. No regional wall motion abnormalities. | |4. The right ventricle is normal in size and function. | |5. There is no pericardial effusion. | + + documented in this encounter Visit Diagnoses Not on filedocumented in this encounter"
--- OUTSIDE RECORDS SUMMARY | ~2019-10-17 | XMS | Encounter Summary ---
Demographics + + + | Address | [address] | | | [place] [address] | + + + | Home Phone | | + + + | Preferred Language | Unknown | + + + | Marital Status | | + + + | Religion Affiliation | Unknown | + + + [...] Simms V | ECON | [address] | | | | | [place] | | | | | [address] | | + + + + + Care Team Providers + +------+ + | Care Spa Attendant Name | Role | Phone | + +------+ + | Donnie Amezquita DO | PCP | | + +------+ + Reason for Visit +--------+ + | Reason | Comments | +--------+ + | Apnea | | +--------+ + Encounter Details +--------+---------+ + + + | Date | Type | Department | Care Team | Description | +--------+---------+ + + + | 12/31/ | Office | [facility] | Haseeb Dempsey PA | NARESH on CPAP (Primary | | 2013 | Visit | SLEEP DISORDER [address] | [address] | Dx) | | | | [address] | [place], [place] | | | | | [place] [address] | [address] | | | | | [phone] | | | +--------+---------+ + + + [...] + + + | Blood Pressure | 152/86 | 12/31/2013 10:02 AM | | | | | PST | | + + + + + | Pulse | 91 | 12/31/2013 10:02 AM | | | | | PST | | + + + + + | Temperature | - | - | | + + + + + | Respiratory Rate | 16 | 12/31/2013 10:02 AM | | | | | PST | | + + + + + | Oxygen Saturation | 97% | 12/31/2013 10:02 AM | | | | | PST | | + + + + + | Inhaled Oxygen | - | - | | | Concentration | | | | + + + + + | Weight | 118.2 kg (260 lb 8 | 12/31/2013 10:02 AM | | | | oz) | PST | | + + + + + | Height | - | - | | + + + + + | Body Mass Index | 44.71 | 11/21/2013 8:50 AM | | | | | PST | | + + + + + documented in this encounter Progress Notes Haseeb Dempsey PA - 12/31/2013 10:24 AM PST Subjective: Patient ID: Deshawn Simms is a 48 y.o. female. HPI last office visit was: 11/21/2013 date of home, unattended, multiparameter, sleep apnea screenin11/28/2013 AHI: 44.1 O2%: 61% with 86.0 minutes below 90% Machine type: ResMed S9 with nasal pillows obtained from: [facility] [place] pressure: 5-20 cm 95%: 11.3 cm maxium: 12.8 cm Nights using CPAP: 08/11 average usage (all nights): 3:24 average usage (nights used): 4:26 AHI: 1.6 "Halina" comes in for CPAP compliance. She has done pretty well with her compliance, but sales s not enjoyed using it again. She questions whether or not she is wearing it correctly. Th e pressure feels like it is too low for her at the beginning of the night. She is not using any ramp time. We went through each of the settings on the CPAP, to ensure that there is a good understanding of how to make changes to temperature, humidity and/or the ramp. I incr eased her minimum pressure from 5 cm to 6 cm to help her feel that she is getting enough pre ssure. She is now comfortable making adjustments to the settings, if necessary. She is not wearing her CPAP for the duration of her sleep, but is trying to wear it as much as she can . She also says that she is still tired during the day. I have discussed the download in detail. This shows that her sleep apnea is well controlle d, with an AHI of 1.6. It also shows that her leaks are well controlled. Review of Systems Objective: Physical Exam Assessment: Problem #1: OBSTRUCTIVE SLEEP APNEA (327.23) This is well controlled with CPAP. Her CPAP compliance is going pretty well, but she is st ill adjusting to wearing it. Plan: She is to continue with CPAP indefinitely. I increased her minimum pressure from 5 cm to 6 cm to help her feel that she is getting enough pressure. I have recommended that she watch television or read while wearing her CPAP for 30-60 prior to going to sleep to help desensi tize her to the CPAP. We will do a nocturnal pulse oxymetry study when she is compliant wit h her CPAP. I will follow up again in 1 month, sooner prn. Thirty minutes were spent [id number], wit h the majority of time spent in counseling. [...] [place] | | | | | | [place] [address] | | | | | | [phone] | | | | | | | | +--------+---------+ + + + | 11/18/ | Office | Nephrology | Fermín Muse MD | | | 2019 | Visit | | [address] [facility] [address] | | | | | | [address] [place] | | | | | | [address] | | | | | | | | +--------+---------+ + + + | 12/26/ | Office | Cardiology | Ashlyn Gallagher | | | 2019 | Visit | | [address] | | | | | | [address] | | | | | | [place] [address] | | | | | | [phone] | | | | | | | | +--------+---------+ + + + documented as of this encounter Visit Diagnoses + + | Diagnosis | + + | NARESH on CPAP - Primary Obstructive sleep apnea (adult) (pediatric) | + + documented in this encounter
--- OUTSIDE RECORDS SUMMARY | ~2019-10-17 | XMS | Encounter Summary ---
Demographics + + + | Address | [address] | | | [place] [address] | + + + | Home Phone | | + + + | Preferred Language | Unknown | + + + | Marital Status | | + + + | Yazidism Affiliation | Unknown | + + + | Race | Unknown | + + + | Ethnic Group | Unknown | + + + Author + + + | Author | [facility] | | | and [place] | + + + | Organization | [facility] | | | and [place] | + + + | Address | Unknown | + + + | Phone | Unavailable | + + + Support + + + + + | Name | Relationship | Address | Phone | + + + + + | Deonte Simms V | ECON | [address] [facility] [address] | | | | | [place] | | | | | [address] | | + + + + + Care Team Providers + +------+ + | [facility] Pricing Consultant Name | Role | Phone | + [...] DR HERNÁNDEZ | | | | | [place] CATH | | [facility] [place] | | | | | PLMT L HRT & | | [address] Phone: | | | | | ARTS W/NJX | | [phone] | | | | | & ANGIO IMG | | Fax: | | | | | S&I CV LHC | | [phone] | | | | | CV COR | | | | | | | ANGIO CV LV | | | +--------+--------+ + + + + Encounter Details +--------+---------+ + + + | Date | Type | Department | Care Team | Description | +--------+---------+ + + + | 08/05/ | Surgery | [facility] | Ama Elizabeth DO | CV COR ANGIO | | 2019 | | CENTER CV INTRA OP | [address] | | | | | [address] | [place] | | | | | [place] | [address] | | | | | [address] | | | | | | [phone] | | | +--------+---------+ + + + [...] Tyler MD - 08/06/2019 8:36 AM PDT [facility] Service: Cardiology Discharge Summary Date of [...] the artery, helping toprevent resteno sis. A crime victim specialist called an industrial spray painter does coronary angioplasty and stenting. He or [...] by your healthcare provider Date Last Reviewed: 07/30/201619996648-4970 [facility]. [address] [place] [address], [place] [address]. All righ ts reserved. This information is [...] cinnamon, pepper, and rupali. Date Last Reviewed: 07/30/201719990251-1317 [facility]. [address] [place] [address], [place] [address]. All righ ts reserved. This information is not intended as a substitute for professional medical care. Always follow your healthcare professional's instructions. The [facility] Diet Expanded Second Edition documented in this [...] prescription be sent to Lynn lópez in [place], [facility], and they advised they [...] | | | | | [address] [facility] | | | | | | [place] [address] | | | | | | [phone] | | | | | | | | +--------+---------+ + + + | 11/18/ | Office | Nephrology | Fermín Muse MD | | | 2019 | Visit | | [address] | | | | | | [address] [place] | | | | | | [address] | | | | | | | | +--------+---------+ + + + | 12/26/ | Office | Cardiology | Ashlyn Gallagher | | | 2019 | Visit | | [address] | | | | | | [address] | | | | | | [place] [address] | | | | | | [phone] | | | | | | | [...] | | | POC | performed at [facility];[address] | | LABORATORY | | | | [address];[place], [place] | | | | | | [address] | | | | + + + + + + + + | Specimen | + + | | + + + + + + + | Performing | Address | City/State/Zipcode | Phone Number | | Organization | | | | + + + + + | [facility] | [address] | [place] [address] | [phone] | + + + + + CBC [...] [facility] | | | | performed at [facility], [address] | | LABORATORY | | | | [address], | | | | | | [place] [address] | | | | + + + + + + + + | Specimen | + + | Blood | + + + + + + + | Performing | Address | City/State/Zipcode | Phone Number | | Organization | | | | + + + + + | [facility] | [address] | [place] [address] | [phone] | + + + + + Basic [...] | 9.6 | 8.5 - 10.5 | [facility] | | | | | mg/dL | LABORATORY | | + + + + + + | Estimated | 52 (L)Comment: GFR <60: | >60 | [facility] | | | GFR | CHRONIC KIDNEY [...] | | | | | performed at [facility], [address] | | | | | | [facility], | | | | | | [place] [address] | | | | + + + + + + + + | Specimen | + + | Blood | + + + + + + + | Performing | Address | City/State/Zipcode | Phone Number | | Organization | | | | + + + + + | [facility] | [address] | [place] [address] | [phone] | + + + + + CK Total (08/06/2019 5:30 AM PDT) + + + + + + | Component | Value | Ref Range | Performed | Pathologist | | | | | At | Signature | + + + + + + | CK TOTAL | 157Comment: Testing | 30 - 240 U/L | [facility] | | | | performed at [facility];[address] | | LABORATORY | | | | [address];[place], [place] | | | | | | [address] | | | | + + + + + + + + | Specimen | + + | Blood | + + + + + + + | Performing | Address | City/State/Zipcode | Phone Number | | Organization | | | | + + + + + | [facility] | [address] [facility] | [place] [address] | [phone] | + + + + + POC Glucose (08/05/2019 9:17 PM PDT) + + + + + + | Component | Value | Ref Range | Performed | Pathologist | | | | | At | Signature | + + + + + + | Glucose, | 158 (H)Comment: Testing | 65 - 99 mg/dL | [facility] | | | POC | performed at [facility];[address] | | LABORATORY | | | | [address];[place] | | | | | | [address] | | | | + + + + + + + + | Specimen | + + | | + + + + + + + | Performing | Address | City/State/Zipcode | Phone Number | | Organization | | | | + + + + + | [facility] | [address] [facility] | [place] [address] | [phone] | + + + + + CV [...] | | angiography without left heart cath (04534.26) Conscious sedation | | | Procedure Summary [...] (H)Comment: Testing | 74 - 137 | [facility] | | | Clotting | performed at [facility];[address] | seconds | LABORATORY | | | Time, POC | [address];[place], [place] | | | | | | [address] | | | | + + + + + + + + | Specimen | + + | | + + + + + + + | Performing | Address | City/State/Zipcode | Phone Number | | Organization | | | | + + + + + | [facility] | [address] | [place] [address] | [phone] | + + + + + Activated [...] | | | Clotting | performed at [facility];[address] | seconds | LABORATORY | | | Time, POC | [address];[place] | | | | | | [address] | | | | + + + + + + + + | Specimen | + + | | + + + + + + + | Performing | Address | City/State/Zipcode | Phone Number | | Organization | | | | + + + + + | [facility] | [address] [facility] | [place] [address] | [phone] | + + + + + Protime INR (08/05/2019 8:19 AM PDT) + + + + + + | Component | Value | Ref Range | Performed | Pathologist | | | | | At | Signature | + + + + + + | INR | 0.9Comment: REFERENCE | | [facility] | | | | RANGE:0.9 - 1.2 [...] | | | | | performed at [facility];[address] | | | | | | [facility];[place] | | | | | | [address] | | | | + + + + + + + + | Specimen | + + | Blood | + + + + + + + | Performing | Address | City/State/Zipcode | Phone Number | | Organization | | | | + + + + + | [facility] | [address] | [place] [address] | [phone] | + + + + + PTT (08/05/2019 8:19 AM PDT) + + + + + + | Component | Value | Ref Range | Performed | Pathologist | | | | | At | Signature | + + + + + + | PTT | 28Comment: Testing | 23 - 32 seconds | [facility] | | | | performed at [facility];[address] | | LABORATORY | | | | [address];[place], [place] | | | | | | [address] | | | | + + + + + + + + | Specimen | + + | Blood | + + + + + + + | Performing | Address | City/State/Zipcode | Phone Number | | Organization | | | | + + + + + | [facility] | [address] | [place] [address] | [phone] | + + + + + Basic [...] | | | | | | MDRD IDWA traceable | | | | | | equation.Testing | | | | | | performed at [facility];[address] | | | | | | [address];[place] | | | | | | [address] | | | | + + + + + + + + | Specimen | + + | Blood | + + + + + + + | Performing | Address | City/State/Zipcode | Phone Number | | Organization | | | | + + + + + | [facility] | [address] | [place] [address] | [phone] | + + + + + CBC [...] | | | Absolute | performed at [facility];[address] | K/uL | LABORATORY | | | | [address];[place], [place] | | | | | | [address] | | | | + + + + + + + + | Specimen | + + | Blood | + + + + + + + | Performing | Address | City/State/Zipcode | Phone Number | | Organization | | | | + + + + + | [facility] | [address] | [place] [address] | [phone] | + + + + + POC Glucose (08/05/2019 8:02 AM PDT) + + + + + + | Component | Value | Ref Range | Performed | Pathologist | | | | | At | Signature | + + + + + + | Glucose, | 71Comment: Testing | 65 - 99 mg/dL | [facility] | | | POC | performed at [facility];[address] | | LABORATORY | | | | [address];[place] | | | | | | [address] | | | | + + + + + + + + | Specimen | + + | | + + + + + + + | Performing | Address | City/State/Zipcode | Phone Number | | Organization | | | | + + + + + | [facility] | [address] | [place] [address] | [phone] | + + + + + documented [...] scheduled: AC, NPO, Daytime | | | 6953-4366 Use NIGHT DOSE for | | | doses scheduled: HS, 3AM, | | | Nighttime 1212-0522 If the BG is | | | [...]
--- OUTSIDE RECORDS SUMMARY | ~2019-10-17 | XMS | Encounter Summary ---
Demographics + + + | Address | [address] | | | [place] [address] | + + + | Home Phone | | + + + | Preferred Language | Unknown | + + + | Marital Status | | + + + | Druze Affiliation | Unknown | + + + | Race | Unknown | + + + | Ethnic Group | Unknown | + + + Author + + + | Author | [facility] | | | and [place] | + + + | Organization | [facility] | | | and [place] | + + + | Address | Unknown | + + + | Phone | Unavailable | + + + Support + + + + + | Name | Relationship | Address | Phone | + + + + + | Deonte Simms V | ECON | [address] | | | | | [place] | | | | | [address] | | + + + + + Care Team Providers + +------+ + | Care Home Health Care Case Manager Name | Role | Phone | + +------+ + | Nikos Crane | PCP | | | MD | | | + +------+ + Reason for Visit +---------+ + | Reason | Comments | +---------+ + | Results | Carotid US | +---------+ + Encounter Details +--------+ + + + + | Date | Type | Department | Care Team | Description | +--------+ + + + + | 07/26/ | Telephone | [facility] | Betty Abdi | Results (Carotid US | | 2019 | | CARDIOLOGY PAMELA Bruno, Leak Detection Engineer | ) | | | | [address] | | | | | | [place] | | | | | | [address] | | | | | | [phone] | | | +--------+ + + + [...] | | | | | [place] [address] | | | | | | [phone] | | | | | | | | +--------+---------+ + + + | 11/18/ | Office | Nephrology | Fermín Muse MD | | | 2019 | Visit | | [address] [facility] [address] | | | | | | [address] [place] | | | | | | [address] | | | | | | | | +--------+---------+ + + + | 12/26/ | Office | Cardiology | Ashlyn Gallagher | | | 2019 | Visit | | [address] | | | | | | [address] | | | | | | [place] [address] | | | | | | [phone] | | | | | | | | +--------+---------+ + + + documented as of this encounter Visit Diagnoses Not on filedocumented in this encounter"
--- OUTSIDE RECORDS SUMMARY | ~2019-10-17 | XMS | Encounter Summary ---
Demographics + + + | Address | [address] | | | [place] [address] | + + + | Home Phone | | + + + | Preferred Language | Unknown | + + + | Marital Status | | + + + | Mormonism Affiliation | Unknown | + + + | Race | Unknown | + + + | Ethnic Group | Unknown | + + + Author + + + | Author | [facility] | | | and [place] | + + + | Organization | [facility] | | | and [place] | + + + | Address | Unknown | + + + | Phone | Unavailable | + + + Support + + + + + | Name | Relationship | Address | Phone | + + + + + | Deonte Simms V | ECON | [address] | | | | | [place] | | | | | [address] | | + + + + + Care Team Providers + +------+ + | Care Consumer Insight Analyst Name | Role | Phone | [...] + + | 07/26/ | Telephone | [facility] | Betty Abdi | Results (Carotid US | | 2019 | | CARDIOLOGY PAMELA Bruno, Framing And Hanging | ) | | | | [address] | | | | | | [place] | | | | | | [address] | | | | | | [phone] | | | +--------+ + + + [...] | | | | | [place] [address] | | | | | | [phone] | | | | | | | | +--------+---------+ + + + | 11/18/ | Office | Nephrology | Fermín Muse MD | | | 2019 | Visit | | [address] [facility] [facility] [address] | | | | | | [address] [place] | | | | | | [address] | | | | | | | | +--------+---------+ + + + | 12/26/ | Office | Cardiology | Ashlyn Gallagher | | | 2019 | Visit | | [address] | | | | | | [address] | | | | | | [place] [address] | | | | | | [phone] | | | | | | | | +--------+---------+ + + + documented as of this encounter Visit Diagnoses Not on filedocumented in this encounter"
--- OUTSIDE RECORDS SUMMARY | ~2019-10-17 | XMS | Clinical Summary ---
Demographics + + + | Address | [address] | | | [place] [address] | + + + | Home Phone | | + + + | Preferred Language | Unknown | + + + | Marital Status | | + + + | Catholic Affiliation | Unknown | + + + | Race | Unknown | + + + | Ethnic Group | Unknown | + + + Author + + + | Author | [facility] | | | and [place] | + + + | Organization | [facility] | | | and [place] | + + + | Address | Unknown | + + + | Phone | Unavailable | + + + Support + + + + + | Name | Relationship | Address | Phone | + + + + + | Deonte Simms V | ECON | [address] | | | | | [place] | | | | | [address] | | + + + + + Care Team Providers + +------+ + | Care Ultrasonic Welding Machine Operator Name | Role | Phone | [...] + + | 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); | | | | | | [...] involving | | | | | | algaaciq coronary | | | | | | artery of algaaciq | | | | | | heart with angina | | | | | | pectoris ([facility]); S/P | | | | | [...] | | | | | | mellitus ([facility]); | | | | | | Bilateral carotid | | | | | | artery stenosis; | | | | | | Stage 3 chronic | | | | | | kidney disease ([facility]) | +--------+ + + + + | 09/05/ | Office | Cardiology | Ashlyn Gallagher | Coronary artery | | 2018 | Visit | | [address] | disease involving | | | | | | algaaciq coronary | | | | | | artery of algaaciq | | | | | | heart with angina | | | | | | pectoris ([facility]); S/P | | | | | [...] | | | | | | mellitus ([facility]); | | | | | | Bilateral carotid | | | | | | artery stenosis; | | | | | | Stage 3 chronic | | | | | | kidney disease ([facility]) | +--------+ + + + + [...] | | 2019 | | | D, Buffer Nickel | ) | +--------+ + + + [...] | | | | | [address] [facility] | | | | | | [place] [address] | | | | | | [phone] | | | | | | | | +--------+---------+ + + + | 11/18/ | Office | Nephrology | Fermín Muse MD | | | 2019 | Visit | | [address] | | | | | | [address] [place] | | | | | | [address] | | | | | | | | +--------+---------+ + + + | 12/26/ | Office | Cardiology | Ashlyn Gallagher | | | 2019 | Visit | | [address] | | | | | | [address] | | | | | | [place] [address] | | | | | | [phone] | | | | | | | [...] Stent | | [place] | | | [id number] | | - [id number]: Qty: | | | SCIENTIFIC | | | [id number] | | 1 on 09/09/2019 by Nayeli, | | | LUL - BSCI | | | 50 / / | | MD Fermín at [facility] | | | | | | | | [facility] | | | | | | | + +-------+------+ +--------+--------+--------+ | Stent Reslt [facility] 2.0x22 - | | | MEDTRONIC - | | | RONYX2 | | [id number]: Qty: 1 | | | MEDT | | | [id number] | | on 09/09/2019 by Nayeli, | | | | | | / / | | MD Fermín at [facility] | | | | | | | | [facility] | | | | | | [...] the | | | | PST | algaaciq coronary | results section. | | | | | artery of algaaciq | | | | | | heart [...] | | | | | | mellitus ([facility]) | | | | | | Bilateral carotid | | | | | | artery stenosis | | | | | | Stage 3 chronic | | | | | | kidney disease ([facility]) | | + +--------+ + + + | CV CARDIAC PROCEDURE | Routin | 09/09/2019 | Coronary artery | Results for this | | | e | 11:44 AM | disease involving | procedure are in the | | | | PST | algaaciq coronary | results section. | | | | | artery of algaaciq | | | | | | heart [...] | | | | | kidney disease ([facility]) | | + +--------+ + + + | CV CARDIAC PROCEDURE | Routin | 09/09/2019 | Coronary artery | Results for this | | | e | 11:44 AM | disease involving | procedure are in the | | | | PST | algaaciq coronary | results section. | | | | | artery of algaaciq | | | | | | heart with angina | | | | | | pectoris ([facility]) S/P | | | | | [...] the | | | | PST | algaaciq coronary | results section. | | | | | artery of algaaciq | | | | | | heart with angina | | | | | | pectoris ([facility]) S/P | | | | | [...] | | | | | | mellitus ([facility]) | | | | | | [...] | | | | | by [facility] Read Only, | | | | | | ICA Mckenna ([id number]), | | | | | | editorial assistant Tony Alexandre | | | | | | ([phone]) on 10/10/2019 | | | | | [...] + CV CARDIAC PROCEDURE (09/09/2019 11:44 AM [facility])Only the most recent of 3 results within [...] coronary artery with stent | | | (92539 LD) Conscious sedation (physician supervision) for 30 total | | | minutes - (25830) + 0 (14171) Procedure Summary Access site: right | | [...] --+ Activated clotting time (09/09/2019 11:30 AM [facility])Only the most recent of 4 results within [...] | | | Clotting | performed at [facility];[address] | seconds | LABORATORY | | | Time, POC | [address];[place] | | | | | | [address] | | | | + + + + + + + + | Specimen | + + | | + + + + + + + | Performing | Address | City/State/Zipcode | Phone Number | | Organization | | | | + + + + + | [facility] | [address] | [place] [address] | [phone] | + + + + + CBC [...] [facility] | | | | performed at [facility];[address] | | LABORATORY | | | | [address];[place], [place] | | | | | | [address] | | | | + + + + + + + + | Specimen | + + | Blood | + + + + + + + | Performing | Address | City/State/Zipcode | Phone Number | | Organization | | | | + + + + + | [facility] | [address] | [place] [address] | [phone] | + + + + + Basic [...] 55 (L)Comment: GFR <60: | >60 | [facility] | | | GFR | CHRONIC KIDNEY [...] | | | | | | MDRD [facility] traceable | | | | | | equation.Testing | | | | | | performed at [facility];[address] | | | | | | [facility];[place], [place] | | | | | | [address] | | | | + + + + + + + + | Specimen | + + | Blood | + + + + + + + | Performing | Address | City/State/Zipcode | Phone Number | | Organization | | | | + + + + + | [facility] | [address] | [place] [address] | [phone] | + + + + + POC [...] Testing | 65 - 99 mg/dL | [facility] | | | POC | performed at [facility];[address] | | LABORATORY | | | | [address];[place] | | | | | | [address] | | | | + + + + + + + + | Specimen | + + | | + + + + + + + | Performing | Address | City/State/Zipcode | Phone Number | | Organization | | | | + + + + + | [facility] | [address] | [place] [address] | [phone] | + + + + + LABS [...] [facility] | | | | performed at [facility];[address] | | LABORATORY | | | | [address];[place] | | | | | | [address] | | | | + + + + + + + + | Specimen | + + | Blood | + + + + + + + | Performing | Address | City/State/Zipcode | Phone Number | | Organization | | | | + + + + + | [facility] | [address] | [place] [address] | [phone] | + + + + + PTT (08/05/2019 8:19 AM PDT) + + + + + + | Component | Value | Ref Range | Performed | Pathologist | | | | | At | Signature | + + + + + + | PTT | 28Comment: Testing | 23 - 32 seconds | [facility] | | | | performed at [facility];[address] | | LABORATORY | | | | [address];[place] | | | | | | [address] | | | | + + + + + + + + | Specimen | + + | Blood | + + + + + + + | Performing | Address | City/State/Zipcode | Phone Number | | Organization | | | | + + + + + | [facility] | [address] | [place] [address] | [phone] | + + + + + Protime [...] | | | | | performed at [facility] | | | | | | [facility];[place], [place] | | | | | | [address] | | | | + + + + + + + + | Specimen | + + | Blood | + + + + + + + | Performing | Address | City/State/Zipcode | Phone Number | | Organization | | | | + + + + + | [facility] | [address] | [place] [address] | [phone] | + + + + + CBC [...] | | | Absolute | performed at [facility];[address] | K/uL | LABORATORY | | | | [address];[place] | | | | | | [address] | | | | + + + + + + + + | Specimen | + + | Blood | + + + + + + + | Performing | Address | City/State/Zipcode | Phone Number | | Organization | | | | + + + + + | [facility] | [address] | [place] [address] | [phone] | + + + + + from [...] +-------+--------+ +--------+-------+---------+------+ | BCBS | BCBS | [id number] | 10/30/19 | | | PPO | | | OOS | W01 | 14-Pre | | | | | | PPO | | sent | | | | +-------+--------+ +--------+-------+---------+------+ | BCBS | BCBS | [id number] | 10/30/19 | | | PPO | [...] Person | Self | [birth year] | [address] | | [place] | [place] | | 1965 | [phone] | [place] | | | [place] | | | 3 (Home) | [address] | + +--------+ +--------+ + + | Adarsh Simmsvanessa | Person | Self | [birth year] | [address] | | [place] | [place] | | 1965 | [phone] | [address] [place] | | | [place] | | | [address] (Home) | [address] | + +--------+ +--------+ + + Advance Directives + + + + + | Type | Date Recorded | Patient | Explanation | | | | Raw Stock Machine Loader | | + + + + + | Power of | | | | | Glass Handler | | | | + + + + + | Advance | 09/09/2019 | | | | Directive | 9:16 AM | | | + + + + +
--- OUTSIDE RECORDS SUMMARY | ~2019-10-17 | XMS | Encounter Summary ---
Demographics + + + | Address | [address] | | | [place] [address] | + + + | Home Phone | | + + + | Preferred Language | Unknown | + + + | Marital Status | | + + + | Jehovah'S Witness Affiliation | Unknown | + + + | Race | Unknown | + + + | Ethnic Group | Unknown | + + + Author + + + | Author | [facility] | | | and [place] | + + + | Organization | [facility] | | | and [place] | + + + | Address | Unknown | + + + | Phone | Unavailable | + + + Support + + + + + | Name | Relationship | Address | Phone | + + + + + | Deonte Simms V | ECON | [address] | | | | | [place] | | | | | [address] | | + + + + + Care Team Providers + +------+ + | Care Maxillofacial Prosthodontist Name | Role | Phone | + [...] | SLEEP DISORDER [address] | [address] | Dx) | | | | [address] [place] | [place], [place] | | | | | [place] [address] | [address] | | | | | [phone] | | | +--------+---------+ + + + [...] 10:31 AM PDT Subjective: Patient ID: Deshawn Simsm is a 48 y.o. female. HPI last office visit was: 12/31/2013 date of home, unattended, multiparameter, sleep apnea screenin11/28/2013 AHI: 44.1 O2%: 61% with 86.0 minutes below 90% Machine type: ResMed S9 with nasal pillows obtained from: [facility] [place] pressure: 5-20 cm 95%: 11.2 cm maxium: [...] a prescription to [facility] [place] to convert her ResMed S9 to purchase and for a nocturnal pulse oxymetry study with CPAP on room air for one night. I will follow up again in 2 months, sooner prn. At that time we will reassess with all raphael ropiate paperwork. Twenty-five minutes were spent [id number], with the majority of time spent in [...] | | | | | [place] [address] | | | | | | [phone] | | | | | | | | +--------+---------+ + + + | 11/18/ | Office | Nephrology | Fermín Muse MD | | | 2019 | Visit | | [address] [place] | | | | | | [address] [place] | | | | | | [address] | | | | | | | | +--------+---------+ + + + | 12/26/ | Office | Cardiology | Ashlyn Gallagher | | | 2019 | Visit | | [address] | | | | | | [place] | | | | | | [place] [address] | | | | | | [phone] | | | | | | | | +--------+---------+ + + + documented as of this encounter Visit Diagnoses + + | Diagnosis | + + | NARESH on CPAP - Primary Obstructive sleep apnea (adult) (pediatric) | + + documented in this encounter
--- OUTSIDE RECORDS SUMMARY | ~2019-10-17 | XMS | Encounter Summary ---
Demographics + + + | Address | [address] | | | [place] [address] | + + + | Home Phone [...] V | ECON | [address] | | | | | [place] | | | | | [address] | | + + + + + Care Team Providers + +------+ + | Care Ict Educator Name | Role | Phone | + +------+ + | Nikos Crane PCP | | | MD | | | + +------+ + Encounter Details +--------+ + + + + | Date | Type | Department | Care Team | Description | +--------+ + + + + | 04/01/ | Orders Only | [facility] | Conversion | | | 2019 | | CONVERSION DEP [address] | Transaction, | | | | | [address] | Provider Unknown | | | | | [place], [place] | [phone] | | | | | [address] | | | | | | [phone] | | | +--------+ + + + [...] | | | | | | [place] | | | | | | [place] [address] | | | | | | [phone] | | | | | | | | +--------+---------+ + + + | 11/18/ | Office | Nephrology | Fermín Muse MD | | | 2019 | Visit | | [address] | | | | | | [address] [place] | | | | | | [address] | | | | | | | | +--------+---------+ + + + | 12/26/ | Office | Cardiology | Ashlyn Gallagher | | | 2019 | Visit | | [address] | | | | | | [place] [place] | | | | | | [place] [address] | | | | | | [phone] | | | | | | | | +--------+---------+ + + + documented as of this encounter Visit Diagnoses Not on filedocumented in this encounter"
--- OUTSIDE RECORDS SUMMARY | ~2019-10-17 | XMS | Encounter Summary ---
Demographics + + + | Address | [address] | | | [place] [address] | + + + | Home Phone | | + + + | Preferred Language | Unknown | + + + | Marital Status | | + + + | Jehovah'S Witness Affiliation | Unknown | + + + | Race | Unknown | + + + | Ethnic Group | Unknown | + + + Author + + + | Author | [facility] | | | and [place] | + + + | Organization | [facility] | | | and [place] | + + + | Address | Unknown | + + + | Phone | Unavailable | + + + Support + + + + + | Name | Relationship | Address | Phone | + + + + + | Deonte Simms V | ECON | [address] | | | | | [place] | | | | | [address] | | + + + + + Care Team Providers + +------+ + | Care Channel Supervisor Name | Role | Phone | + [...] Provider Unknown | | | | | [place], [place] | [phone] | | | | | [address] | | | | | | [phone] | | | +--------+ + + + [...] | | | | | | [place] | | | | | | [place] [address] | | | | | | [phone] | | | | | | | | +--------+---------+ + + + | 11/18/ | Office | Nephrology | Fermín Muse MD | | | 2019 | Visit | | [address] | | | | | | [address] [place] | | | | | | [address] | | | | | | | | +--------+---------+ + + + | 12/26/ | Office | Cardiology | Ashlyn Gallagher | | | 2019 | Visit | | [address] | | | | | | [place] [place] | | | | | | [place] [address] | | | | | | [phone] | | | | | | | | +--------+---------+ + + + documented as of this encounter Visit Diagnoses Not on filedocumented in this encounter"
--- OUTSIDE RECORDS SUMMARY | ~2019-10-17 | XMS | Encounter Summary ---
Demographics + + + | Address | [address] | | | [place] [address] | + + + | Home Phone | | + + + | Preferred Language | Unknown | + + + | Marital Status | | + + + | Temple Affiliation | Unknown | + + + | Race | Unknown | + + + | Ethnic Group | Unknown | + + + Author + + + | Author | [facility] | | | and [place] | + + + | Organization | [facility] | | | and [place] | + + + | Address | Unknown | + + + | Phone | Unavailable | + + + Support + + + + + | Name | Relationship | Address | Phone | + + + + + | Deonte Simms V | ECON | [address] | | | | | [place] | | | | | [address] | | + + + + + Care Team Providers + +------+ + | Care Flanging Machine Operator Name | Role | Phone [...] + + | 11/21/ | Office | [facility] | Hany Fiore | Snoring (Primary | | 2013 | Visit | SLEEP DISORDER [address] | MD John [address] | Dx); Restless legs | | | | [address] [place] | [address] [place] | syndrome (RLS); | | | | [place] [address] | [place] [address] | Organic insomnia; | | | | [phone] | [phone] | REM sleep behavior | | | [...] the original. 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 I have discussed in detail the pathophysiology [...] c ashli. CC: Dr. Dorothy Amezquita imon, Hayn Bruno Jr., MD - 11/21/2013 9:15 AM PSTFormatting of this note might be different from the origin al. 11/21/13 0900 [place] Depression Inventory-II Depression Score 32 - Severe depression Insomnia Severity Index Insomnia Severity Index 22 [place] Sleepiness Scale Sitting and reading 3 Watching [...] | | | | | | [place] [address] | | | | | | [place] [address] | | | | | | [phone] | | | | | | | | +--------+---------+ + + + | 11/18/ | Office | Nephrology | Fermín Muse MD | | | 2019 | Visit | | [address] [place] | | | | | | [address] [place] | | | | | | [address] | | | | | | | | +--------+---------+ + + + | 12/26/ | Office | Cardiology | Ashlyn Gallagher | | | 2019 | Visit | | [address] | | | | | | [place] [address] [place] | | | | | | [place] [address] | | | | | | [phone] | | | | | | | [...] + | [facility] | [address] | [place] | [phone] | | [facility] | | [address] | | | - LABORATORY | | | | + + + + + | [facility] | [address] | [place], [place] | | | [facility] | | [address] | | | - LABORATORY | | [...] | [facility] | | | | [facility] | | MEDICAL | | | [...] + | [facility] | [address] | [place] | [phone] | | [facility] | | [address] | | | - LABORATORY | | | | + + + + + | [facility] | [address] | [place] | | | [facility] | | [address] | | | - LABORATORY | | [...] [facility] | | | | [facility] | | MEDICAL | | | [...] [address] | [place] | [phone] | | [facility] | | [address] | | | - LABORATORY | | | | + + + + + | [facility] | [address] | [place] | | | [facility] | | [address] | | | - LABORATORY | | [...] | PATIENT FASTING? Y | | [facility] | | | | | | MEDICAL [...] + | [facility] | [address] | [place], [place] | [phone] | | [facility] | | [address] | | | - LABORATORY | | | | + + + + + | [facility] | [address] | [place], [place] | | | [facility] | | [address] | | | - LABORATORY | | [...] + | [facility] | [address] | [place] | [phone] | | [facility] | | [address] | | | - LABORATORY | | | | + + + + + | [facility] | [address] | [place] | | | [facility] | | [address] | | | - LABORATORY | | [...] | 1.22 | 0.60 - 1.30 | [facility] | | | | | mg/dL | [facility] | | | | | | MEDICAL | | | | | | CENTER - | | | | | | LABORATORY | | + + + + + + | Estimated | 47 (L)Comment: For | >60 mL/min/A | [facility] | | | GFR | [...] + | [facility] | [address] | [place], [place] | [phone] | | [facility] | | [address] | | | - LABORATORY | | | | + + + + + | [facility] | [address] | [place], [place] | | | [facility] | | [address] | | | - LABORATORY | | [...] + | [facility] | [address] | [place], [place] | [phone] | | [facility] | | [address] | | | - LABORATORY | | | | + + + + + | [facility] | [address] | [place] | | | [facility] | | [address] | | | - LABORATORY | | [...] + | [facility] | [address] | [place] | [phone] | | [facility] | | [address] | | | - LABORATORY | | | | + + + + + | [facility] | [address] | [place] | | | [facility] | | [address] | | | - LABORATORY | | [...]
--- OUTSIDE RECORDS SUMMARY | ~2019-10-17 | XMS | Encounter Summary ---
Demographics + + + | Address | [address] | | | [place] [address] | + + + | Home Phone | | + + + | Preferred Language | Unknown | + + + | Marital Status | | + + + | Jew Affiliation | Unknown | + + + | Race | Unknown | + + + | Ethnic Group | Unknown | + + + Author + + + | Author | [facility] | | | and [place] | + + + | Organization | [facility] | | | and [place] | + + + | Address | Unknown | + + + | Phone | Unavailable | + + + Support + + + + + | Name | Relationship | Address | Phone | + + + + + | Deonte Simms V | ECON | [address] | | | | | [place] | | | | | [address] | | + + + + + Care Team Providers + +------+ + | Care Voice Over Announcer Name | Role | Phone | + [...] [address] | | | | | [facility] CATH | | [place] | | | | | PLMT L HRT & | | [address] Phone: | | | | | ARTS W/NJX | | [phone] | | | | | & ANGIO IMG | | Fax: | | | | | S&I CV LHC | | [phone] | | | | | CV COR | | | | | | | ANGIO CV LV | | | +--------+--------+ + + + + Encounter Details +--------+ + + + + | Date | Type | Department | Care Team | Description | +--------+ + + + + | 08/05/ | Hospital | [facility] | Ama Elizabeth DO | Abnormal stress | | 2019 - | Encounter | [facility] | [address] | test; Abnormal | | | | CARE FLOOR [address] | [place], [place] | stress test | | 08/06/ | | [address] | [address] | | | 2018 | | [place], [place] | | | | | | [address] | | | | | | [phone] | | | +--------+ + + + [...] Tyler MD - 08/06/2019 8:36 AM PDT [facility] Service: Cardiology Discharge Summary Date of Admission: [...] Uncoded Medication Convert CPAP to purchase for NARSEH (327.23) VITAMIN D PO Take 50,000 Units [...] the artery, helping toprevent resteno sis. A camouflage specialist called an assignment clerk does coronary angioplasty and stenting. He or [...] by your healthcare provider Date Last Reviewed: 07/30/201619992441-3839 [employer]. [address] [place] [address], [place] [address]. All righ ts reserved. This information is [...] cinnamon, pepper, and rupali. Date Last Reviewed: 07/30/201719992285-1487 [employer]. [address] [place] [address]. All righ ts reserved. This information is not intended as a substitute for professional medical care. Always follow your healthcare professional's instructions. The [facility] Diet Expanded Second Edition documented in this [...] prescription be sent to JeJanine maribel in [place], called [facility], and they advised they [...] | | | | | [address] [facility] | | | | | | [place] [address] | | | | | | [phone] | | | | | | | | +--------+---------+ + + + | 11/18/ | Office | Nephrology | Fermín Muse MD | | | 2019 | Visit | | [address] | | | | | | [address] [place] | | | | | | [address] | | | | | | | | +--------+---------+ + + + | 12/26/ | Office | Cardiology | Ashlyn Gallagher | | | 2019 | Visit | | [address] | | | | | | [place] | | | | | | [place] [address] | | | | | | [phone] | | | | | | | [...] | LABORATORY | | | | [address];[place], [place] | | | | | | [address] | | | | + + + + + + + + | Specimen | + + | | + + + + + + + | Performing | Address | City/State/Zipcode | Phone Number | | Organization | | | | + + + + + | [facility] | [address] | [place] [address] | [phone] | + + + + + CBC [...] | | | | | [place] [address] | | | | + + + + + + + + | Specimen | + + | Blood | + + + + + + + | Performing | Address | City/State/Zipcode | Phone Number | | Organization | | | | + + + + + | [facility] | [address] | [place] [address] | [phone] | + + + + + Basic [...] | 9.6 | 8.5 - 10.5 | [facility] | | | | | mg/dL | LABORATORY | | + + + + + + | Estimated | 52 (L)Comment: GFR <60: | >60 | [facility] | | | GFR | CHRONIC [...] | | | | | performed at [facility], [address] | | | | | | [facility], | | | | | | [place] [address] | | | | + + + + + + + + | Specimen | + + | Blood | + + + + + + + | Performing | Address | City/State/Zipcode | Phone Number | | Organization | | | | + + + + + | [facility] | [address] | [place] [address] | [phone] | + + + + + CK Total (08/06/2019 5:30 AM PDT) + + + + + + | Component | Value | Ref Range | Performed | Pathologist | | | | | At | Signature | + + + + + + | CK TOTAL | 157Comment: Testing | 30 - 240 U/L | [facility] | | | | performed at [facility];[address] | | LABORATORY | | | | [address];[place], [place] | | | | | | [address] | | | | + + + + + + + + | Specimen | + + | Blood | + + + + + + + | Performing | Address | City/State/Zipcode | Phone Number | | Organization | | | | + + + + + | [facility] | [address] | [place] [address] | [phone] | + + + + + POC [...] [place] | | | | | | [address] | | | | + + + + + + + + | Specimen | + + | | + + + + + + + | Performing | Address | City/State/Zipcode | Phone Number | | Organization | | | | + + + + + | [facility] | [address] [facility] | [place] [address] | [phone] | + + + + + CV [...] | | angiography without left heart cath (77422.26) Conscious sedation | | | Procedure Summary [...] (H)Comment: Testing | 74 - 137 | [facility] | | | Clotting | performed at [facility];[address] | seconds | LABORATORY | | | Time, POC | [address];[place], [place] | | | | | | [address] | | | | + + + + + + + + | Specimen | + + | | + + + + + + + | Performing | Address | City/State/Zipcode | Phone Number | | Organization | | | | + + + + + | [facility] | [address] | [place] [address] | [phone] | + + + + + Activated [...] [place] | | | | | | [address] | | | | + + + + + + + + | Specimen | + + | | + + + + + + + | Performing | Address | City/State/Zipcode | Phone Number | | Organization | | | | + + + + + | [facility] | [address] | [place] [address] | [phone] | + + + + + Protime INR (08/05/2019 8:19 AM PDT) + + + + + + | Component | Value | Ref Range | Performed | Pathologist | | | | | At | Signature | + + + + + + | INR | 0.9Comment: REFERENCE | | [facility] | | | | RANGE:0.9 - [...] [place];[address] | | | | | | [facility];[place] | | | | | | [address] | | | | + + + + + + + + | Specimen | + + | Blood | + + + + + + + | Performing | Address | City/State/Zipcode | Phone Number | | Organization | | | | + + + + + | [facility] | [address] | [place] [address] | [phone] | + + + + + PTT [...] | LABORATORY | | | | [address];[place] | | | | | | [address] | | | | + + + + + + + + | Specimen | + + | Blood | + + + + + + + | Performing | Address | City/State/Zipcode | Phone Number | | Organization | | | | + + + + + | [facility] | [address] | [place] [address] | [phone] | + + + + + Basic [...] [place];[address] | | | | | | [address];[place] | | | | | | [address] | | | | + + + + + + + + | Specimen | + + | Blood | + + + + + + + | Performing | Address | City/State/Zipcode | Phone Number | | Organization | | | | + + + + + | [facility] | [address] | [place] [address] | [phone] | + + + + + CBC [...] | LABORATORY | | | | [address];[place] | | | | | | [address] | | | | + + + + + + + + | Specimen | + + | Blood | + + + + + + + | Performing | Address | City/State/Zipcode | Phone Number | | Organization | | | | + + + + + | [facility] | [address] | [place] [address] | [phone] | + + + + + POC [...] | LABORATORY | | | | [address];[place] | | | | | | [address] | | | | + + + + + + + + | Specimen | + + | | + + + + + + + | Performing | Address | City/State/Zipcode | Phone Number | | Organization | | | | + + + + + | [facility] | [address] | [place] [address] | [phone] | + + + + + documented [...] scheduled: AC, NPO, Daytime | | | 2660-2397 Use NIGHT DOSE for | | | doses scheduled: HS, 3AM, | | | Nighttime 1053-4019 If the BG is | | | [...]
--- OUTSIDE RECORDS SUMMARY | ~2019-10-17 | XMS | Encounter Summary ---
Demographics + + + | Address | [address] | | | [place] [address] | + + + | Home Phone | | + + + | Preferred Language | Unknown | + + + | Marital Status | | + + + | Pentecostalism Affiliation | Unknown | + + + [...] Deonte Simms V | ECON | [address] | | | | | [place] | | | | | [address] | | + + + + + Care Team Providers + +------+ + | Care Memory Care Program Resident Name | Role | Phone | + [...] | Cardiac | Diagnoses | Alqaisi, | [facility] | | | Services | Rehabilitatio | S/P drug | MD Fermín | Pulmonary | | | Required | n | eluting | [address] | Rehab [address] | | | | | coronary | [address] | KALYN JACOB | | | | | stent | [place], | [place], [place] | | | | | placement | [place] [address] | [address] | | | | | Procedures | Phone: | Phone: | | | | | CARDIAC | [phone] | [phone] | | | | | REHAB | Fax: | Fax: | | | | | | [phone] | [phone] | +--------+ + + + + + [...] [place], [place] | | | | | redding | | [address] Phone: | | | | | coronary | | [phone] | | | | | artery of | | Fax: | | | | | redding heart | | [phone] | | | | | with angina [...] + + | 09/09/ | Hospital | [facility] | Fermín Tyler MD | S/P drug eluting | | 2019 | Encounter | [facility] | [address] | coronary stent | | | | CARE FLOOR [address] | [place] [address] | placement (Primary | | | | [address] | [phone] | Dx); Coronary artery | | | | [place], [place] | | disease involving | | | | [address] | | redding coronary | | | | [phone] | | artery of redding | | | | | | heart with angina | | | | | | pectoris ([facility]); S/P | | | | | | [...] | | | | | | [address] | | | | | | [place] [address] | | | | | | [phone] | | | | | | | | +--------+---------+ + + + | 11/18/ | Office | Nephrology | Fermín Muse MD | | | 2019 | Visit | | [address] [facility] [address] | | | | | | [address] [place] | | | | | | [address] | | | | | | | | +--------+---------+ + + + | 12/26/ | Office | Cardiology | Ashlyn Gallagher | | | 2019 | Visit | | [address] | | | | | | [address] | | | | | | [place] [address] | | | | | | [phone] | | | | | | | | +--------+---------+ + + + + + +--------+ + + | Name | Type | Priori | Associated Diagnoses | Order Schedule | | | | ty | | | + + +--------+ + + | Ambulatory Referral | Outpatient | Routin | S/P drug eluting | Ordered: 09/09/2019 | | to [facility] | Referral | e | [...] the | | | | PST | redding coronary | results section. | | | | | artery of redding | | | | | | heart [...] | | | | mellitus ([facility]) | | | | | | Bilateral carotid | | | | | | artery stenosis | | | | | | Stage 3 chronic | | | | | | kidney disease ([facility]) | | + +--------+ + + + | CV CARDIAC PROCEDURE | Routin | 09/09/2019 | Coronary artery | Results for this | | | e | 11:44 AM | disease involving | procedure are in the | | | | PST | redding coronary | results section. | | | | | artery of redding | | | | | | heart with angina | | | | | | pectoris ([facility]) S/P | | | | [...] | | | | mellitus ([facility]) | | | | | [...] non-overlapping | | | drug-eluting stents, resolute [place] 2.0 x 22 mm in the distal [...] coronary artery with stent | | | (25392 LD) Conscious sedation (physician supervision) for 30 total | | | minutes - (07508) + 0 (64676) Procedure Summary Access site: right | | [...] | | | Clotting | performed at [facility];888 | seconds | LABORATORY | | | Time, POC | [address];[place], [place] | | | | | | [address] | | | | + + + + + + + + | Specimen | + + | | + + + + + + + | Performing | Address | City/State/Zipcode | Phone Number | | Organization | | | | + + + + + | [facility] | [address] | [place] [address] | [phone] | + + + + + Activated clotting time (09/09/2019 11:18 AM PST) + + + + + + | Component | Value | Ref Range | Performed | Pathologist | | | | | At | Signature | + + + + + + | Activated | 191 (H)Comment: Testing | 74 - 137 | [facility] | | | Clotting | performed at [facility];888 | seconds | LABORATORY | | | Time, POC | [address];[place] | | | | | | [address] | | | | + + + + + + + + | Specimen | + + | | + + + + + + + | Performing | Address | City/State/Zipcode | Phone Number | | Organization | | | | + + + + + | [facility] | [address] | [place] [address] | [phone] | + + + + + Basic [...] | | | | | performed at [facility];888 | | | | | | [facility];[place], [place] | | | | | | [address] | | | | + + + + + + + + | Specimen | + + | Blood | + + + + + + + | Performing | Address | City/State/Zipcode | Phone Number | | Organization | | | | + + + + + | [facility] | [address] | [place] [address] | [phone] | + + + + + CBC [...] KAI | | | | performed at [facility];888 | | LABORATORY | | | | [address];[place], [place] | | | | | | [address] | | | | + + + + + + + + | Specimen | + + | Blood | + + + + + + + | Performing | Address | City/State/Zipcode | Phone Number | | Organization | | | | + + + + + | [facility] | [address] | [place] [address] | [phone] | + + + + + POC Glucose (09/09/2019 9:42 AM PST) + + + + + + | Component | Value | Ref Range | Performed | Pathologist | | | | | At | Signature | + + + + + + | Glucose, | 68Comment: Testing | 65 - 99 mg/dL | [facility] | | | POC | performed at [facility];888 | | LABORATORY | | | | [address];[place], [place] | | | | | | [address] | | | | + + + + + + + + | Specimen | + + | | + + + + + + + | Performing | Address | City/State/Zipcode | Phone Number | | Organization | | | | + + + + + | [facility] | [address] | [place] [address] | [phone] | + + + + + documented in this encounter Visit Diagnoses + + | Diagnosis | + + | S/P drug eluting coronary stent placement - Primary | + + | 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
--- OUTSIDE RECORDS SUMMARY | ~2019-10-17 | XMS | Encounter Summary ---
Demographics + + + | Address | [address] | | | [place] [address] | + + + | Home Phone | | + + + | Preferred Language | Unknown | + + + | Marital Status | | + + + | Hoahaoism Affiliation | Unknown | + + + [...] Deonte Simms V | ECON | [address] | | | | | [place] | | | | | [address] | | + + + + + Care Team Providers + +------+ + | Care Surgical Oncologist Name | Role | Phone | + +------+ + | Nikos Crane PCP | | | MD | | | + +------+ + Encounter Details +--------+ + + + + | Date | Type | Department | Care Team | Description | +--------+ + + + + | 08/02/ | Telephone | [facility] | Ama ElizabethDO | | | 2019 | | CENTER CV INTRA OP | [address] | | | | | [address] | [place], [place] | | | | | [place], [place] | [address] | | | | | [address] | | | | | | [phone] | | | +--------+ + + + [...] | | | | [address] [address] [place] | | | | | | [place] [address] | | | | | | [phone] | | | | | | | | +--------+---------+ + + + | 11/18/ | Office | Nephrology | Fermín Muse MD | | | 2019 | Visit | | [address] | | | | | | [address] [place] | | | | | | [address] | | | | | | | | +--------+---------+ + + + | 12/26/ | Office | Cardiology | Ashlyn Gallagher | | | 2019 | Visit | | [address] | | | | | | [address] | | | | | | [place] [address] | | | | | | [phone] | | | | | | | | +--------+---------+ + + + documented as of this encounter Visit Diagnoses Not on filedocumented in this encounter"
--- OUTSIDE RECORDS SUMMARY | ~2019-10-17 | XMS | Encounter Summary ---
Demographics + + + | Address | [address] | | | [place] [address] | + + + | Home Phone | | + + + | Preferred Language | Unknown | + + + | Marital Status | | + + + | Adventism Affiliation | Unknown | + + + | Race | Unknown | + + + | Ethnic Group | Unknown | + + + Author + + + | Author | [facility] | | | and [place] | + + + | Organization | [facility] | | | and [place] | + + + | Address | Unknown | + + + | Phone | Unavailable | + + + Support + + + + + | Name | Relationship | Address | Phone | + + + + + | Deonte Simms V | ECON | [address] | | | | | [place] | | | | | [address] | | + + + + + Care Team Providers + +------+ + | Care Foam Tank Laminator Name | Role | Phone | + [...] [place], [place] | | | | | [place] | | [address] Phone: | | | | | coronary | | [phone] | | | | | artery of | | Fax: | | | | | algaaciq heart | | [phone] | | | | | with angina [...] | | | | | | | NM R & L HRT | | | [...] + + | 09/09/ | Surgery | [facility] | Fermín Tyler MD | CV STENT | | 2019 | | CENTER CV INTRA OP | [address] | | | | | [address] | [place] [address] | | | | | [place], [place] | [phone] | | | | | [address] | | | | | | [phone] | | | +--------+---------+ + + + [...] | | | | | [place] [address] | | | | | | [phone] | | | | | | | | +--------+---------+ + + + | 11/18/ | Office | Nephrology | Fermín Muse MD | | | 2019 | Visit | | [address] [facility] [address] | | | | | | [address] [place] | | | | | | [address] | | | | | | | | +--------+---------+ + + + | 12/26/ | Office | Cardiology | Ashlyn Gallagher | | | 2020 | Visit | | [address] | | | | | | [address] [place] [address] | | | | | | [place] [address] | | | | | | [phone] | | | | | | | | +--------+---------+ + + + + + +--------+ + + | Name | Type | Priori | Associated Diagnoses | Order Schedule | | | | ty | | | + + +--------+ + + | Ambulatory Referral | Outpatient | Routin | S/P drug eluting | Ordered: 09/09/2019 | | to [facility] | Referral | e | coronary [...] coronary artery with stent | | | (80483 LD) Conscious sedation (physician supervision) for 30 total | | | minutes - (64226) + 0 (57525) Procedure Summary Access site: right | | [...] | | | Clotting | performed at [facility];888 | seconds | LABORATORY | | | Time, POC | [address];[place], [place] | | | | | | [address] | | | | + + + + + + + + | Specimen | + + | | + + + + + + + | Performing | Address | City/State/Zipcode | Phone Number | | Organization | | | | + + + + + | [facility] | [address] | [place] [address] | [phone] | + + + + + Activated [...] | | | Clotting | performed at [facility];888 | seconds | LABORATORY | | | Time, POC | [address];[place], [place] | | | | | | [address] | | | | + + + + + + + + | Specimen | + + | | + + + + + + + | Performing | Address | City/State/Zipcode | Phone Number | | Organization | | | | + + + + + | [facility] | [address] | [place] [address] | [phone] | + + + + + Basic [...] 55 (L)Comment: GFR <60: | >60 | [facility] | | | GFR | CHRONIC KIDNEY [...] | | | | | | [facility]D [facility] traceable | | | | | | equation.Testing | | | | | | performed at [facility];888 | | | | | | [facility], [place] | | | | | | [address] | | | | + + + + + + + + | Specimen | + + | Blood | + + + + + + + | Performing | Address | City/State/Zipcode | Phone Number | | Organization | | | | + + + + + | [facility] | [address] | [place] [address] | [phone] | + + + + + CBC [...] [facility] | | | | performed at [facility] | | LABORATORY | | | | [address];[place], [place] | | | | | | [address] | | | | + + + + + + + + | Specimen | + + | Blood | + + + + + + + | Performing | Address | City/State/Zipcode | Phone Number | | Organization | | | | + + + + + | [facility] | [address] | [place] [address] | [phone] | + + + + + POC Glucose (09/09/2019 9:42 AM PST) + + + + + + | Component | Value | Ref Range | Performed | Pathologist | | | | | At | Signature | + + + + + + | Glucose, | 68Comment: Testing | 65 - 99 mg/dL | [facility] | | | POC | performed at 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
--- OUTSIDE RECORDS SUMMARY | ~2019-10-17 | XMS | Encounter Summary ---
Demographics + + + | Address | [address] | | | [place] [address] | + + + | Home Phone | | + + + | Preferred Language | Unknown | + + + | Marital Status | | + + + | Faith Affiliation | Unknown | + + + | Race | Unknown | + + + | Ethnic Group | Unknown | + + + Author + + + | Author | [facility] | | | and [place] | + + + | Organization | [facility] | | | and [place] | + + + | Address | Unknown | + + + | Phone | Unavailable | + + + Support + + + + + | Name | Relationship | Address | Phone | + + + + + | Deonte Simms V | ECON | [address] | | | | | [place] | | | | | [address] | | + + + + + Care Team Providers + +------+ + | Care Checker Stocker Name | Role | Phone | + [...] + + | 08/27/ | Telephone | [facility] | Maryann Fuller, | Imaging | | 2019 | | VASCULAR SURGERY | RN | | | | | [address] | | | | | | [place], [place] | | | | | | [address] | | | | | | [phone] | | | +--------+ + + + [...] | | | | | | [place] | | | | | | [place] [address] | | | | | | [phone] | | | | | | | | +--------+---------+ + + + | 11/18/ | Office | Nephrology | Fermín Muse MD | | | 2019 | Visit | | [address] | | | | | | [address] [place] | | | | | | [address] | | | | | | | | +--------+---------+ + + + | 12/26/ | Office | Cardiology | Ashlyn Gallagher | | | 2019 | Visit | | [address] | | | | | | [address] | | | | | | [place] [address] | | | | | | [phone] | | | | | | | | +--------+---------+ + + + documented as of this encounter Visit Diagnoses Not on filedocumented in this encounter"
--- OUTSIDE RECORDS SUMMARY | ~2019-10-17 | XMS | Encounter Summary ---
Demographics + + + | Address | [address] | | | [place] [address] | + + + | Home Phone [...] V | ECON | [address] | | | | | [place] | | | | | [address] | | + + + + + Care Team Providers + +------+ + | Care Office Rep Name | Role | Phone | + [...] | SLEEP DISORDER [address] | [address] | Dx) | | | | [address] | [place], [place] | | | | | [place] [address] | [address] | | | | | [phone] | | | +--------+---------+ + + + [...] pillows obtained from: [facility] [place] pressure: 5-20 cm 95%: 11.3 cm maxium: [...] month, sooner prn. Thirty minutes were spent esyj-rd-aamz, wit h the majority of time spent [...] [place] | | | | | | [place] [address] | | | | | | [phone] | | | | | | | | +--------+---------+ + + + | 11/18/ | Office | Nephrology | Fermín Muse MD | | | 2019 | Visit | | [address] [facility] [address] | | | | | | [address] [place] | | | | | | [address] | | | | | | | | +--------+---------+ + + + | 12/26/ | Office | Cardiology | Ashlyn Gallagher | | | 2019 | Visit | | [address] | | | | | | [address] [address] | | | | | | [place] [address] | | | | | | [phone] | | | | | | | | +--------+---------+ + + + documented as of this encounter Visit Diagnoses + + | Diagnosis | + + | NARESH on CPAP - Primary Obstructive sleep apnea (adult) (pediatric) | + + documented in this encounter
--- OUTSIDE RECORDS SUMMARY | ~2019-10-17 | XMS | Encounter Summary ---
Demographics + + + | Address | [address] | | | [place] [address] | + + + | Home Phone | | + + + | Preferred Language | Unknown | + + + | Marital Status | | + + + | Orthodoxy Affiliation | Unknown | + + + | Race | Unknown | + + + | Ethnic Group | Unknown | + + + Author + + + | Author | [facility] | | | and [place] | + + + | Organization | [facility] | | | and [place] | + + + | Address | Unknown | + + + | Phone | Unavailable | + + + Support + + + + + | Name | Relationship | Address | Phone | + + + + + | Deonte Simms V | ECON | [address] [facility] [facility] | | | | | [place] | | | | | [address] | | + + + + + Care Team Providers + +------+ + | Care Assistant Clinical Director Name | Role | Phone | + [...] | | artery | [address] | [place], [place] | | | | | | [place], [place] | [address] | | | | | | [address] | Phone: | | | | | | Phone: | [phone] | | | | | | [phone] | Fax: | | | | | | Fax: | [phone] | | | | | | [phone] | | + + + + + [...] + + | 07/25/ | Office | [facility] | Ama Elizabeth DO | Abnormal stress test | | 2019 | Visit | CARDIOLOGY [place] | [address] | (Primary Dx); | | | | [address] [facility] | [place], [place] | 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; | | | | [place] | | Hypertension, | | | | [address] | | unspecified type; | | | | [phone] | | Obesity, unspecified | | | [...] Ama Elizabeth, - 07/25/2019 1:40 PM PDT [facility] Cardiology Follow Up Note Reason for Consultation: angina Requesting Physician: Eleanor Crane History Obtained From: patient HISTORY OF PRESENT ILLNESS: Cardiac Problem List Hypertension Hyperlipidemia- she has had reactions to statins in the past Non Cardiac Problem List Diabetes Sleep apnea Hypothyroidism Fibromyalgia GERD Psoriasis The patient is a 53-year-old female with the above past medical history. She presents to [facility] cardiology office for initial consultation regarding chest [...] to pain. 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 She [...] mg by mouth every morning. ergocalciferol (DRISDOL) 92765 units capsule Take 50,000 Units by mouth [...] more than one vascular access site, , OR, CVA, bleedi ng (including the need for [...] | | [address] [facility] | | | | | | [place] [address] | | | | | | [phone] | | | | | | | | +--------+---------+ + + + | 11/18/ | Office | Nephrology | Fermín Muse MD | | | 2019 | Visit | | [address] [facility] | | | | | | [address] [place] | | | | | | [address] | | | | | | | | +--------+---------+ + + + | 12/26/ | Office | Cardiology | Ashlyn Gallagher | | | 2019 | Visit | | [address] | | | | | | [address] | | | | | | [place] [address] | | | | | | [phone] | | | | | | | | +--------+---------+ + + + + + +--------+ + + | Name | Type | Priori | Associated Diagnoses | Order Schedule | | | | ty | | | + + +--------+ + + | Ambulatory Referral | Outpatient | Routin | Stenosis of left | Ordered: 07/26/2019 | | to [facility] | Referral | e | carotid [...]
--- OUTSIDE RECORDS SUMMARY | ~2019-10-17 | XMS | Encounter Summary ---
Demographics + + + | Address | [address] | | | [place] [address] | + + + | Home Phone | | + + + | Preferred Language | Unknown | + + + | Marital Status | | + + + | Islam Affiliation | Unknown | + + + [...] Simms V | ECON | [address] | | | | | [place] | | | | | [address] | | + + + + + Care Team Providers + +------+ + | Care Associate Professor Of Engineering Name | Role | Phone | + +------+ + | Donnie Amezquita DO | PCP | | + +------+ + Encounter Details +--------+ + + + + | Date | Type | Department | Care Team | Description | +--------+ + + + + | 01/28/ | Hospital | [facility] | Hany Fiore | | | 2013 | Encounter | MED CTR SLEEP | MD John [address] | | | | | [place] [address] | [address] [facility] | | | | | [place], [place] | [place] [address] | | | | | [address] | [phone] | | | | | [phone] | | | +--------+ + + + [...] | | | | | [address] [facility] | | | | | | [place] [address] | | | | | | [phone] | | | | | | | | +--------+---------+ + + + | 11/18/ | Office | Nephrology | Fermín Muse MD | | | 2019 | Visit | | [address] | | | | | | [address] [place] | | | | | | [address] | | | | | | | | +--------+---------+ + + + | 12/26/ | Office | Cardiology | Ashlyn Gallagher | | | 2020 | Visit | | [address] | | | | | | [address] | | | | | | [place] [address] | | | | | | [phone] | | | | | | | | +--------+---------+ + + + documented as of this encounter Visit Diagnoses Not on filedocumented in this encounter"
--- OUTSIDE RECORDS SUMMARY | ~2019-10-17 | XMS | Encounter Summary ---
Demographics + + + | Address | [address] [facility] [facility] | | | [place] [address] | + + + | Home Phone | | + + + | Preferred Language | Unknown | + + + | Marital Status | | + + + | Mormon Affiliation | Unknown | + + + | Race | Unknown | + + + | Ethnic Group | Unknown | + + + Author + + + | Author | [facility] | | | and [place] | + + + | Organization | [facility] | | | and [place] | + + + | Address | Unknown | + + + | Phone | Unavailable | + + + Support + + + + + | Name | Relationship | Address | Phone | + + + + + | Deonte Simms V | ECON | [address] | | | | | [place] | | | | | [address] | | + + + + + Care Team Providers + +------+ + | Care Csr Retail Name | Role | Phone | + [...] Provider Unknown | | | | | [place], [place] | [phone] | | | | | [address] | | | | | | [phone] | | | +--------+ + + + [...] | | | | | | [place] | | | | | | [place] [address] | | | | | | [phone] | | | | | | | | +--------+---------+ + + + | 11/18/ | Office | Nephrology | Fermín Muse MD | | | 2019 | Visit | | [address] | | | | | | [address] [place] | | | | | | [address] | | | | | | | | +--------+---------+ + + + | 12/26/ | Office | Cardiology | Ashlyn Gallagher | | | 2019 | Visit | | [address] | | | | | | [address] | | | | | | [place] [address] | | | | | | [phone] | | | | | | | | +--------+---------+ + + + documented as of this encounter Visit Diagnoses Not on filedocumented in this encounter"
--- OUTSIDE RECORDS SUMMARY | ~2019-10-17 | XMS | Encounter Summary ---
Demographics + + + | Address | [address] | | | [place] [address] | + + + | Home Phone | | + + + | Preferred Language | Unknown | + + + | Marital Status | | + + + | Confucianism Affiliation | Unknown | + + + | Race | Unknown | + + + | Ethnic Group | Unknown | + + + Author + + + | Author | [facility] | | | and [place] | + + + | Organization | [facility] | | | and [place] | + + + | Address | Unknown | + + + | Phone | Unavailable | + + + Support + + + + + | Name | Relationship | Address | Phone | + + + + + | Deonte Simms V | ECON | [address] | | | | | [place] | | | | | [address] | | + + + + + Care Team Providers + +------+ + | Care Health Plan Specialist Name | Role | Phone | + +------+ + | Donnie Amezquita DO | PCP | | + +------+ + Encounter Details +--------+ + + + + | Date | Type | Department | Care Team | Description | +--------+ + + + + | 11/21/ | Hospital | [facility] | Hany Fiore | Snoring; Restless | | 2014 | Encounter | [facility] | MD John [address] | legs syndrome (RLS); | | | | [address] [place] | [address] [place] | Obesity; HBP (high | | | | [place], [place] | [place] [address] | blood pressure); | | | | [address] | [phone] | Diabetes type 2, | | | | [phone] | | uncontrolled (HCC); | | | [...] | | | | | [address] [facility] | | | | | | [place] [address] | | | | | | [phone] | | | | | | | | +--------+---------+ + + + | 11/18/ | Office | Nephrology | Fermín Muse MD | | | 2019 | Visit | | [address] | | | | | | [address] [place] | | | | | | [address] | | | | | | | | +--------+---------+ + + + | 12/26/ | Office | Cardiology | ElliottAshlyn | | | 2019 | Visit | | [address] | | | | | | [place] | | | | | | [place] [address] | | | | | | [phone] | | | | | | | [...] [address] | [place] | [phone] | | [facility] | | [address] | | | - LABORATORY | | | | + + + + + | [facility] | [address] | [place] | | | [facility] | | [address] | | | - LABORATORY | | [...] | [facility] | | | | [facility] | | MEDICAL | | | [...] + | [facility] | [address] | [place] | [phone] | | [facility] | | [address] | | | - LABORATORY | | | | + + + + + | [facility] | [address] | [place] | | | [facility] | | [address] | | | - LABORATORY | | [...] [address] | | | | [facility] | | MEDICAL | | | [...] + | [facility] | [address] | [place], [place] | [phone] | | [facility] | | [address] | | | - LABORATORY | | | | + + + + + | [facility] | [address] | [place] | | | [facility] | | [address] | | | - LABORATORY | | [...] + + | Performing | Address | City/[facility]/Zipcode | Phone Number | | Organization | | | | + + + + + | [facility] | [address] | [place] | [phone] | | [facility] | | [address] | | | - LABORATORY | | | | + + + + + | [facility] | [address] | [place], [place] | | | [facility] | | [address] | | | - LABORATORY | | [...] + | [facility] | [address] | [place] | [phone] | | [facility] | | [address] | | | - LABORATORY | | | | + + + + + | [facility] [facility] | [address] | [place] | | | [facility] | | [address] | | | - LABORATORY | | [...] + | [facility] | [address] | [place], [place] | [phone] | | [facility] | | [address] | | | - LABORATORY | | | | + + + + + | [facility] | [address] | [place], [place] | | | [facility] | | [address] | | | - LABORATORY | | [...] | [facility] | | | | [facility] | | MEDICAL | | | [address] | [place] | [phone] | | [facility] | | [address] | | | - LABORATORY | | | | + + + + + | [facility] | [address] | [place] | | | [facility] | | [address] | | | - LABORATORY | | [...] + | [facility] | [address] | [place] | [phone] | | [facility] | | [address] | | | - LABORATORY | | | | + + + + + | [facility] [facility] | [address] | [place] | | | [facility] | | [address] | | | - LABORATORY | | [...]
--- OUTSIDE RECORDS SUMMARY | ~2019-10-17 | XMS | Encounter Summary ---
Demographics + + + | Address | [address] | | | [place] [address] | + + + | Home Phone | | + + + | Preferred Language | Unknown | + + + | Marital Status | | + + + | Buddhist Affiliation | Unknown | + + + | Race | Unknown | + + + | Ethnic Group | Unknown | + + + Author + + + | Author | [facility] | | | and [place] | + + + | Organization | [facility] | | | and [place] | + + + | Address | Unknown | + + + | Phone | Unavailable | + + + Support + + + + + | Name | Relationship | Address | Phone | + + + + + | Deonte Simms V | ECON | [address] | | | | | [place] | | | | | [address] | | + + + + + Care Team Providers + +------+ + | Care Signals Collector/Analyst Name | Role | Phone | + [...] | | [address] | [place], [place] | | | | | [place], [place] | [address] | | | | | [address] | | | | | | [phone] | | | +--------+ + + + [...] | | | | | [facility] | | | | | | [place] [address] | | | | | | [phone] | | | | | | | | +--------+---------+ + + + | 11/18/ | Office | Nephrology | Fermín Muse MD | | | 2019 | Visit | | [address] [place] | | | | | | [address] [place] | | | | | | [address] | | | | | | | | +--------+---------+ + + + | 12/26/ | Office | Cardiology | Elliott Ashlyn | | | 2019 | Visit | | [address] | | | | | | [place] | | | | | | [place] [address] | | | | | | [phone] | | | | | | | [...] | A Federico: 0.98 m/s MV Dec Bulloch: 5.49 m/s2 MV DecT: 130.97 ms | | | MV E Federico: 0.71 m/s MV E/A Ratio: 0.72 MV PHT: 37.98 ms | | | MVA By PHT: 5.79 cm2 Septal e': 0.05 m/s Septal E/e': 13.62 | | | Lateral e': 0.07 m/s Lateral E/e': 9.30 RV s': 0.14 m/s | | | Ticketing Agent: DBS Authenticated by: Ama Elizabeht MD Report | | | Date/Time: -- [id number] | | + + + + + [...] cmLVIDd: 5.27 cmLVPWd: 1.26 cmLVOT Area: 3.61 [id number] Diam: | | 2.14 cm%FS: 38.69 %EF(Teich): [...] | | (A-L): 19.69 ml/m2LAAs A2C: 16.31 [id number] A-L A2C: 46.51 mlLALs A2C: 4.85 | | cmLAAs A4C: 14.53 [id number] A-L A4C: 39.65 mlLALs A4C: 4.52 cmRAAs: 13.04 | | [id number] A-L: 33.39 mlRAESV MOD: 32.07 mlRALs: 4.32 cmTAPSE: 2.13 cmAV maxPG: | | 9.35 mmHgAV meanP.95 mmHgAV Vmax: 1.52 m/Delfino Vmean: 1.05 m/Delfino VTI: 28.91 | | cmAVA Vmax: 2.74 cm2AVA (VTI): 3.16 [id number] (Vmax): 0.00 cm2/m2AVAI (VTI): 0.00 | | cm2/m2LVOT maxP.37 mmHgLVOT meanP.05 mmHgLVSI Dopp: 40.53 ml/m2LVSV Dopp: | | 91.60 mlLVOT Vmax: 1.15 m/sLVOT Vmean: 0.83 m/sLVOT VTI: 25.32 cmMV A Federico: | | 0.98 m/sMV Dec Bulloch: 5.49 m/s2MV DecT: 130.97 msMV E Federico: 0.71 m/sMV E/A Ratio: | | 0.72MV PHT: 37.98 msMVA By PHT: 5.79 [id number] e': 0.05 m/sSeptal E/e': | | 13.62Lateral e': 0.07 m/sLateral E/e': 9.30RV s': 0.14 m/s Ticketing Agent: | | DBSAuthenticated by: Ama Elizabeth MDReport Date/Time: -- [id number] | | IMPRESSION: 1. Left ventricular systolic [...] A Federico: 0.98 m/s | |MV Dec Bulloch: 5.49 m/s2 | |MV DecT: 130.97 ms | |MV E Federico: 0.71 m/s | |MV E/A Ratio: 0.72 | |MV PHT: 37.98 ms | |MVA By PHT: 5.79 cm2 | |Septal e': 0.05 m/s | |Septal E/e': 13.62 | |Lateral e': 0.07 m/s | |Lateral E/e': 9.30 | |RV s': 0.14 m/s | | | |Ticketing Agent: DBS | |Authenticated by: Ama Elizabeth MD | |Report Date/Time: -- [id number]:13 | | | |IMPRESSION: | |1. Left [...]
--- OUTSIDE RECORDS SUMMARY | 2019-10-17 09:22 | XMS ---
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 E.Wendy VISIT COUNT (12 MO.) 2 YOLANDA Parker TOTAL 2 NOTE: Visits indicate total known visits. 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
[2019-10-17] MEDS ORDERED: LEVO-T300 MCG PO (09:38)
[2019-10-17] MEDS ORDERED: TRESIBA FL100 UNIT/1 SUB-Q (09:39)
[2019-10-17] MEDS ORDERED: APIDRA100 UNIT/2 SUB-Q (09:40)
[2019-10-17] MEDS ORDERED: PRASUGREL HCL10 MG PO (09:41)
== END 2019-10-17 11:21 | disposition home or self-care (01) ==
LOC: ED 09:20
DX: S00.03XA Contusion of scalp, initial encounter (principal); S50.11XA Contusion of right forearm, initial encounter; S30.0XXA Contusion of lower back and pelvis, initial encounter; M54.5 Low back pain; I10 Essential (primary) hypertension; E11.9 Type 2 diabetes mellitus without complications; Z87.891 Personal history of nicotine dependence; W01.0XXA Fall on same level from slipping, tripping and stumbling without subsequent striking against object, initial encounter
CPT/HCPCS: 70450; 99284-25